=== PATIENT | male | born 1945 | race Caucasian/White ===

== ENCOUNTER → 2018-03-07 | Outpatient (CLI) | payer OTHER | END | disposition home or self-care (01) | LOC: RADUSWWP 09:57 | PROVIDERS: ATTEND Family Medicine | DX: M79.605 Pain in left leg (principal); M79.604 Pain in right leg | CPT/HCPCS: 93923 ==

== ENCOUNTER → 2018-03-15 | Outpatient (CLI) | payer OTHER ==
--- NOTE | 2018-03-15 18:39 | ECHOF ---
Referral Reason:R06.00 Dyspnea on exertion MEASUREMENTS -------- HEIGHT: 172.7 cm WEIGHT: 86.2 kg BP: IVSd: 1.2 cm (0.6 - 1.1) LVIDd: 4.4 cm (3.9 - 5.3) LVPWd: 1.2 cm (0.6 - 1.1) IVSs: 1.5 cm LVIDs: 3.1 cm LVPWs: 1.5 cm LAESV Index (A-L): 16.53 ml/m Ao Diam: 2.5 cm (2.0 - 3.7) AV Cusp: 1.9 cm (1.5 - 2.6) LA Diam: 2.2 cm (2.7 - 3.8) MV E Cecilio: 0.63 m/s MV DecT: 274 ms MV A Cecilio: 0.81 m/s MV E/A Ratio: 0.78 RAP: 5.00 mmHg RVSP: 8.09 mmHg FINDINGS -------- Sinus rhythm. This was a technically adequate study. The left ventricular size is normal. There is mild concentric left ventricular hypertrophy. Overa ll left ventricular systolic function is normal with, an EF between 55 - 60 %. The right ventricle is normal in size and function. Normal LA size by volume 22+/-6 ml/m2. The right atrium is normal in size. The aortic valve is trileaflet, and appears structurally normal. No aortic stenosis or regurgitation. The mitral valve is normal. There is trace to mild mitral regurgitation. Trace tricuspid regurgitation present. Right ventricular systolic pressure is normal at < 35 mmHg. The right ventricular systolic pressure, as measured by Doppler, is 8.09mmHg. The pulmonic valve was not well visualized. Echo free space may represent effusion or a pericardial fat pad. CONCLUSIONS -------- 1. Sinus rhythm. 2. This was a technically adequate study. 3. The left ventricular size is normal. 4. There is mild concentric left ventricular hypertrophy. 5. Overall left ventricular systolic function is normal with, an EF between 55 - 60 %. 6. Normal LA size by volume 22+/-6 ml/m2. 7. The aortic valve is trileaflet, and appears structurally normal. No aortic stenosis or regurgitati on. 8. There is trace to mild mitral regurgitation. 9. Trace tricuspid regurgitation present. 10. Right ventricular systolic pressure is normal at < 35 mmHg. 11. The pulmonic valve was not well visualized. 12. Echo free space may represent effusion or a pericardial fat pad. MEDICAL SUPPORT SPECIALIST: Emerson Cheema RDCS
== END | disposition home or self-care (01) ==
LOC: RADECHMAIN 12:23
DX: I34.0 Nonrheumatic mitral (valve) insufficiency (principal); I51.7 Cardiomegaly
CPT/HCPCS: 93306

== ENCOUNTER 2018-10-19 12:48 | Emergency (ER) | payer OTHER ==
[2018-10-19 13:03] VITALS: BP 117/70; PULSE 83; RESP 16; TEMP 97.9
[2018-10-19] MEDS ORDERED: CYCLOBENZAPRINE 10MG STARTER 3 TAB BTL PO STA (13:30)
--- NOTE | 2018-10-19 13:51 | XR ---
EXAMINATION TYPE: XR lumbar spine 2 or 3V DATE OF EXAM: 10/19/2018 CLINICAL HISTORY: pain TECHNIQUE: Three views of the lumbar spine are submitted. COMPARISON: None. FINDINGS: There are 5 lumbar type vertebral bodies identified. The lumbar spine shows satisfactory alignment w ithout evidence of acute fracture or dislocation. Vertebral body heights are within normal limits. [id number] degenerative disc space narrowing. The overlying soft tissue appears unremarkable. IMPRESSION: No acute fracture or dislocation is seen in the lumbar spine. ICD 10 NO FRACTURE, INITIAL EVALUATION
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
== END 2018-10-19 14:10 | disposition home or self-care (01) ==
LOC: EC 12:48
DX: S39.012A Strain of muscle, fascia and tendon of lower back, initial encounter (principal); Z87.891 Personal history of nicotine dependence; V89.2XXA Person injured in unspecified motor-vehicle accident, traffic, initial encounter; Y92.410 Unspecified street and highway as the place of occurrence of the external cause
CPT/HCPCS: 72100; 99284

== ENCOUNTER → 2018-11-21 | Outpatient (CLI) | payer OTHER ==
--- NOTE | 2018-11-21 10:30 | US ---
EXAMINATION TYPE: US liver DATE OF EXAM: 11/21/2018 COMPARISON: NONE CLINICAL HISTORY: R94.5 Abnormal LFTS. no symptoms EXAM MEASUREMENTS: Liver Length: 15.8 cm Gallbladder Wall: 0.2 cm CBD: 0.5 cm Right Kidney: 11.6 x 5.3 x 5.3 cm Pancreas: wnl Liver: Very minimal diminished visualization of the portal triads on few images. No focal hepatic ma ss is seen. Gallbladder: wnl Evidence for sonographic Tellez's sign: no CBD: wnl Right Kidney: wnl IMPRESSION: Very mild hyperechogenicity of the hepatic parenchyma can relate to early hepatic steatos is. Correlate with liver function test results.
== END | disposition home or self-care (01) ==
LOC: RADUSWWP 09:10
DX: R94.5 Abnormal results of liver function studies (principal)
CPT/HCPCS: 76705

== ENCOUNTER → 2018-11-22 | Outpatient (CLI) | payer OTHER ==
[~2018-11-22] MED LIST: REGADENOSON 0.4 MG/5 ML SYRINGE IV ONE
--- NOTE | 2018-11-22 11:57 | NM ---
EXAMINATION TYPE: NM stress lexiscan cardiolite DATE OF EXAM: 11/22/2018 COMPARISON: NONE HISTORY: Dyspnea. History of tobacco use quit 25 years ago along with hypertension and hypercholester emia. TECHNIQUE: After the intravenous administration of 9.8 mCi Tc 99m Sestamibi - Cardiolite resting SPE CT images acquired 35 minutes post injection. The patient received 0.4mg Lexiscan, 24.8 mCi Tc 99m Sestamibi - Stress images obtained [address] injection FINDINGS: Review of stress and rest SPECT images demonstrates no distinct perfusion abnormality. Gated analysi s shows normal wall motion with an estimated left ventricular ejection fraction of 67 %. IMPRESSION: No scintigraphic evidence for reversible ischemia.
--- NOTE | 2018-11-22 20:08 | P.STRESS ---
- Stress Test Note Stress Test Results/Findings: Exam Performed: NM stress lexiscan cardiolite Exam Date: 11/22/18 Reason for Exam: SOB / VERTIGO Height: 5 ft 8 in Weight: 87.09 kg Protocol: LEXISCAN Stage: NA Duration of Exercise: NA Resting Heart Rate: 80 Resting Blood Pressure: 123/64 Maximum Achieved Heart Rate: 88 Maximum Achieved Blood Pressure: 123/64 85% PMHR: NA 100% PMHR: NA METS: NA Technologist Comment: Stress Test Results/Findings: Baseline heart rate 80 beats a minute, Baseline blood pressure 123/64 mmHg Patient is 12-lead ECG at baseline shows sinus rhythm with normal cardiac and was normal ST segments He received Lexiscan infusion per protocol No significant change in heart rate. Mild drop in blood pressure Lowest blood pressure 93/63 mmHg No symptoms Nuclear portion of the stressors reported separately
== END | disposition home or self-care (01) ==
LOC: RADNMMAIN 07:38
DX: R06.00 Dyspnea, unspecified (principal); Z88.9 Allergy status to unspecified drugs, medicaments and biological substances
CPT/HCPCS: 93017; 78452; A9500; J2785

== ENCOUNTER 2020-06-12 16:59 | Observation (INO) | payer OTHER ==
[2020-06-12] MEDS ORDERED: DIAZEPAM 5 MG/ML 2 ML INJ IVP STA ×2 (17:10→20:02)
[2020-06-12] MEDS ORDERED: KETOROLAC 15 MG/ML 1 ML VIAL IVP STA (17:10)
[2020-06-12] MEDS ORDERED: SODIUM CHLORIDE 0.9% 500 ML 500 ML IV ONE (17:10)
--- NOTE | 2020-06-12 17:17 | ED ---
General Adult HPI - General Chief complaint: Back Pain/Injury Stated complaint: Back Spasm Time Seen by Provider: 06/12/20 17:00 Source: patient, EMS, RN notes reviewed, old records reviewed Mode of arrival: EMS Limitations: no limitations - History of Present Illness Initial comments: This is a 74-year-old male who presents emergency Department complaining of back spasm. Patient states he was out shoveling today and a couple hours later all of a sudden he started having back spasms across the lower back per patient states he sits still he has some pain but when he moves his is excruciating pain any states it feels like a spasm. Patient denies any numbness or weakness. Patient denies any problems urinating or having any urinary incontinence. Patient denies any abdominal pain. Patient denies any injury to the back. Patient denies any similar symptoms in the past. Patient denies any recent fever chills or cough. - Related Data Home Medications Medication Instructions Recorded Confirmed No Known Home Medications 10/19/18 10/19/18 Allergies Allergy/AdvReac Type Severity Reaction Status Date / Time No Known Allergies Allergy Verified 10/19/18 13:03 Review of Systems ROS Statement: Those systems with pertinent positive or pertinent negative responses have been documented in the HPI. ROS Other: All systems not noted in ROS Statement are negative. Past Medical History Past Medical History: Hypertension History of Any Multi-Drug Resistant Organisms: None Reported Past Surgical History: Hernia Repair Past Psychological History: PTSD Past Alcohol Use History: Occasional Past Drug Use History: None Reported General Exam - General Exam Comments Initial Comments: GENERAL: Patient is well-developed and well-nourished. Patient is nontoxic and well- hydrated and is in mild distress however when the patient moves he is in excruciating pain. ENT: Neck is soft and supple. No significant lymphadenopathy is noted. Oropharynx is clear. Moist mucous membranes. Neck has full range of motion without eliciting any pain. EYES: The sclera were anicteric and conjunctiva were pink and moist. Extraocular movements were intact and pupils were equal round and reactive to light. Eyelids were unremarkable. PULMONARY: Unlabored respirations. Good breath sounds bilaterally. No audible rales rhonchi or wheezing was noted. CARDIOVASCULAR: There is a regular rate and rhythm without any murmurs gallops or rubs. ABDOMEN: Soft and nontender with normal bowel sounds. SKIN: Skin is clear with no lesions or rashes and otherwise unremarkable. NEUROLOGIC: Patient is alert and oriented x3. Cranial nerves II through XII are grossly intact. Motor and sensory are also intact. Normal speech, volume and content. Symmetrical smile. Perineum exam is normal. MUSCULOSKELETAL: Normal extremities with adequate strength and full range of motion. Patient has tenderness in the paraspinous muscles of the lower back. Patient's straight leg test is causing spasms with either leg. LYMPHATICS: No significant lymphadenopathy is noted PSYCHIATRIC: Normal psychiatric evaluation. Limitations: no limitations Course Vital Signs 06/12/20 17:02 Temperature 98.0 F Pulse Rate 80 Respiratory 16 Rate Blood Pressure 154/70 O2 Sat by Pulse 96 Oximetry Medical Decision Making - Medical Decision Making Patient received Dilaudid and Valium and Toradol initially and had no effect. Anytime the patient tried to move he was unable to put his feet to the ground and get off the bed. Patient was unable to roll over. I gave the patient some Solu-Medrol and some more Valium he was slightly more relaxed but still unable to move in any direction. Patient was unable to lie flat so they can get an x-ray. [facility] admitted the patient wrote admitting orders. - Lab Data Result diagrams: 06/12/20 17:10 06/12/20 17:10 Lab Results 06/12/20 06/12/20 Range/Units 17:10 17:10 WBC 5.7 (3.8-10.6) k/uL RBC 4.48 (4.30-5.90) m/uL Hgb 14.7 (13.0-17.5) gm/dL Hct 41.8 (39.0-53.0) % MCV 93.4 (80.0-100.0) fL MCH 32.9 (25.0-35.0) pg MCHC 35.2 (31.0-37.0) g/dL RDW 13.0 (11.5-15.5) % Plt Count 263 (150-450) k/uL MPV 7.4 Neutrophils % 64 % Lymphocytes % 19 % Monocytes % 6 % Eosinophils % 7 % Basophils % 2 % Neutrophils # 3.7 (1.3-7.7) k/uL Lymphocytes # 1.1 (1.0-4.8) k/uL Monocytes # 0.3 (0-1.0) k/uL Eosinophils # 0.4 (0-0.7) k/uL Basophils # 0.1 (0-0.2) k/uL Sodium 138 (137-145) mmol/L Potassium 3.7 (3.5-5.1) mmol/L Chloride 106 (98-107) mmol/L Carbon Dioxide 24 (22-30) mmol/L Anion Gap 8 mmol/L BUN 23 H (9-20) mg/dL Creatinine 0.91 (0.66-1.25) mg/dL Est GFR (CKD-EPI)AfAm >90 (>60 ml/min/1.73 sqM) Est GFR (CKD-EPI)NonAf 84 (>60 ml/min/1.73 sqM) Glucose 125 H (74-99) mg/dL Calcium 9.9 (8.4-10.2) mg/dL Total Bilirubin 0.4 (0.2-1.3) mg/dL AST 48 (17-59) U/L ALT 71 H (4-49) U/L Alkaline Phosphatase 44 (38-126) U/L Total Protein 7.2 (6.3-8.2) g/dL Albumin 4.6 (3.5-5.0) g/dL Disposition Clinical Impression: Back muscle spasm Disposition: ADMITTED IP TO THIS HOSP Referrals: [facility],Clinic [Primary Care Provider] - 1-2 days Time of Disposition: 20:27
[2020-06-12 17:35] LABS: Basophils # (A) 0.1 k/uL (0-0.2); Basophils % (A) 2 %; Eosinophils # (A) 0.4 k/uL (0-0.7); Eosinophils % (A) 7 %; HCT 41.8 % (39.0-53.0); HGB 14.7 gm/dL (13.0-17.5); Lymphocytes # (A) 1.1 k/uL (1.0-4.8); Lymphocytes % (A) 19 %; MCH 32.9 pg (25.0-35.0); MCHC 35.2 g/dL (31.0-37.0); MCV 93.4 fL (80.0-100.0); Mean Platelet Volume 7.4; Monocytes # (A) 0.3 k/uL (0-1.0); Monocytes % (A) 6 %; Neutrophils # (A) 3.7 k/uL (1.3-7.7); Neutrophils % (A) 64 %; Platelet Count 263 k/uL (150-450); RBC 4.48 m/uL (4.30-5.90); WBC 5.7 k/uL (3.8-10.6)
[2020-06-12 17:46] LABS: Potassium 3.7 mmol/L (3.5-5.1)
[2020-06-12 17:47] LABS: ALT 71 U/L (4-49); AST 48 U/L (17-59); African American GFR (CKD) >90 (>60 ml/min/1.73 sqM); Albumin 4.6 g/dL (3.5-5.0); Alkaline Phosphatase 44 U/L (38-126); Anion Gap 8 mmol/L; Blood Urea Nitrogen 23 mg/dL (9-20); Calcium 9.9 mg/dL (8.4-10.2); Carbon Dioxide 24 mmol/L (22-30); Chloride 106 mmol/L (98-107); Glucose 125 mg/dL (74-99); Non-African American GFR(CKD) 84 (>60 ml/min/1.73 sqM); Sodium 138 mmol/L (137-145); Total Bilirubin 0.4 mg/dL (0.2-1.3); Total Protein 7.2 g/dL (6.3-8.2)
[2020-06-12] MEDS ORDERED: HYDROmorphone 0.5 MG/0.5 ML SYRINGE IVP STA (18:59)
[2020-06-12] MEDS ORDERED: methylPREDNISolone SOD SUCCI 125 MG/2 ML VIAL IV STA (20:02)
[2020-06-12] MEDS ORDERED: SODIUM CHLORIDE 0.9% 1,000 ML IV ONE (20:27)
[2020-06-12] MEDS ORDERED: diazePAM 5 MG TAB PO PRN (20:28)
[2020-06-12] MEDS ORDERED: HYDROmorphone 0.5 MG/0.5 ML SYRINGE IVP PRN (20:29)
[2020-06-13] MEDS ORDERED: ACETAMINOPHEN TAB 500 MG TAB PO PRN (00:21)
[2020-06-13] MEDS: KETOROLAC 15 MG/ML 1 ML VIAL IVP SCH ×4 (00:40→17:19)
[2020-06-13] MEDS ORDERED: buPROPion SR 100 MG TABLET.ER PO SCH (09:00)
[2020-06-13] MEDS ORDERED: amLODIPine 10 MG TAB PO SCH (09:00)
[2020-06-13] MEDS ORDERED: cilostazoL 100 MG TAB PO SCH (09:00)
[2020-06-13] MEDS ORDERED: LISINOPRIL-HCTZ 20-25 MG 1 EACH TAB PO SCH (09:00)
--- NOTE | 2020-06-13 12:18 | XR ---
EXAMINATION TYPE: XR lumbar spine 2 or 3V DATE OF EXAM: 06/13/2020 Comparison: 10/19/2018 Clinical History: 74-year-old male back pain Findings: Hypertrophic facet arthropathy mid to lower lumbar spine. Moderate degenerative disc disease L5-S1 an d mild throughout the remainder of the lumbar spine. Discogenic calcifications throughout the abdomin al aorta. 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 Vertebral body heights are preserve d and alignment is maintained. Findings are relatively similar compared to 2019. Impression: No vertebral compression collapse or malalignment. Moderate degenerative disc disease L5-S1 and mild elsewhere in the lumbar spine. Hypertrophic facet arthropathy mid to lower lumbar spine.
--- NOTE | 2020-06-13 13:41 | P.CNOR ---
History of Present Illness - [facility] Consult date: 06/13/20 Consult reason: low back pain History of present illness: 74-year-old male presents emergency department secondary to low back pain and spasms. The patient states a couple days ago he was shoveling the driveway when he started to feel a twinge in his back however it did not become worse in the last couple days when he was having extreme pain in his low back and pain when he tried to sit or stand. He states that he is having difficulty getting up secondary to this pain. He denies pain that travels down his leg however he states when he moves his left leg he can feel pain in his low back on the left. He denies any bowel or bladder incontinence. He denies any perineal numbness or tingling. He denies any fevers chills shortness of breath or chest pain at this time. He denies any overt injury trauma blunt head trauma or other issues. Review of Systems 14 points review of systems completed and as stated in HPI, all other systems reviewed are negative. Past Medical History Past Medical History: Hypertension History of Any Multi-Drug Resistant Organisms: None Reported Past Surgical History: Hernia Repair Past Psychological History: PTSD Smoking Status: Former smoker Past Alcohol Use History: Occasional Additional Past Alcohol Use History / Comment(s): drinks about 2 beers a day Past Drug Use History: None Reported Medications and Allergies Home Medications Medication Instructions Recorded Confirmed Type Acetaminophen [Tylenol] 1,000 mg PO ONCE PRN 06/12/20 06/12/20 History Cilostazol [Pletal] 100 mg PO DAILY 06/12/20 06/12/20 History Lisinopril-Hctz 20-25 mg 1 tab PO DAILY 06/12/20 06/12/20 History [Zestoretic 20-25] amLODIPine [Norvasc] 10 mg PO DAILY 06/12/20 06/12/20 History buPROPion SR [Wellbutrin SR] 100 mg PO BID 06/12/20 06/12/20 History Allergies Allergy/AdvReac Type Severity Reaction Status Date / Time No Known Allergies Allergy Verified 10/19/18 13:03 Physical Examination Osteopathic Statement: *. No significant issues noted on an osteopathic structural exam other than those noted in the History and Physical/Consult. General the patient is alert and oriented 3 appears well-nourished well- hydrated and is in no acute distress. He is not appear septic. Lumbar spine is examined on examination the lumbar spine the patient has minimal tenderness to palpation across the low back. He states that the pain that he has radiates across his low back and into his left buttock region. There is no piriformis tenderness bilaterally there is no trend David. There is no greater trochanteric pain at this time. The patient was able to experience planning strategist the room and walk around the room. He is able to toe walk as well as heel walk without any issues. The patient performed a half squat which when he got to the bottom did increase some pain but he was able to stand back up without any issues. The patient states he went to the bathroom without any issues as well. Patient has 2/4 DTRs in all upper and lower extremities. He has 5/5 strength in all major muscle groups of the upper extremity's and lower extremity's bilaterally. He has a negative Babinski's negative clonus and negative Slava's test bilaterally. The patient's intact to light touch sensation in the C5 T1 as well as L2 S1 nerve distribution. He has palpable 2/4 distal pulses in his lower extremities all. He does have a positive straight leg raise on the left but a negative contralateral straight leg raise on the right. This does cause tensioning in his left lower extremity which causes pain in his back. Rectals exam deferred at this time This does not she pain down his leg however it only concentrates in his back. He is intact. He anal in perirectal sensation with no perineal numbness or scrotal numbness. Results AP lateral radiographs of the lumbar spine are obtained and reviewed in the emergency department this demonstrates some spondylosis of L5-S1 however there are no fractures or dislocations. Overall alignment is fairly well maintained. There is no evidence of instability lesions or other issues. - Labs Labs: Abnormal Lab Results - Last 24 Hours (Table) 06/12/20 Range/Units 17:10 BUN 23 H (9-20) mg/dL Glucose 125 H (74-99) mg/dL ALT 71 H (4-49) U/L H & H 06/12/20 Range/Units 17:10 Hgb 14.7 (13.0-17.5) gm/dL Hct 41.8 (39.0-53.0) % Result Diagrams: 06/12/20 17:10 06/12/20 17:10 Assessment and Plan Assessment: 74-year-old male with low back pain and left lower extremity radiculopathy Plan: -Medical management -Recommend Flexeril 10 mg 3 times a day, Medrol Dosepak, anti-inflammatories or Tylenol 1000 mg every 6 hours for pain control -PT OT -Limit lifting bending and twisting to less than 10 pounds at this time. No pushing or pulling. -Recommend outpatient physical therapy for lumbar back pain -Follow-up in office in 1-2 weeks. If patient not doing any better and still having symptoms would order an MRI at this time. Thank you for allowing us to participate in the care of this patient. Please call us with any questions.
[2020-06-13] MEDS ORDERED: HEPARIN SODIUM,PORCINE 5,000 UNIT/ML 1 ML VIAL SQ SCH (16:00)
[2020-06-13 16:19] VITALS: BP 154/77; PULSE 91; RESP 18; TEMP 98.4
--- NOTE | 2020-06-13 21:40 | P.HPIM ---
History of Present Illness H&P Date: 06/13/20 Chief Complaint: Lower back spasms Patient is a 74-year-old male with a known history of hypertension, hernia repair and prior history of smoking does drink about 2 beers a day presents to ER with complaints of lower back spasms and pain. Patient states that he was out shoveling the snow and couple hours later he started having spasms in his back and lower back pain. Patient states that he is having excruciating pain in the lower back and also radiating to the both sides of the back and pressure- like tightness. Difficulty getting up from sitting position. Sometimes the pain travels down the left leg. No numbness or tingling sensation.. Denies any lower extremity weakness. No numbness or tingling. No saddle anesthesia. No bladder or bowel incontinence. Denies any abdominal pain. No diarrhea. Denied any recent injury to the back. No fever no chills. No cough or sputum production. X-ray of the lumbar spine done in the ER showed no vertebral compression or collapse or malalignment. Moderate degenerative disc disease L5-S1 and mild elsewhere in the lumbar spine. Hypertrophic facet arthropathy mid to lower lumbar spine. Laboratory data revealed AST 48 ALT 71 and alk phos 44 electrolytes within normal limits. No leukocytosis. Review of Systems Constitutional: Patient denies any fever or chills . No generalized weakness or weight loss. Abdomen: Patient denied nausea vomiting and diarrhea and abdominal pain. Cardiovascular: Patient denies any chest pain or short of breath no palpitations. Respiratory: patient denied any cough or sputum production. No shortness of breath Neurologic: Patient denied any numbness or tingling headache. Musculoskeletal: Patient denies any complaints of joint swelling or deformit y.Lower back spasms Skin: Negative Psychiatric: Negative Endocrine: No heat or cold intolerance. No recent weight gain. Genitourinary: No dysuria or hematuria. All other 14 point ROS negative except the above Past Medical History Past Medical History: Hypertension History of Any Multi-Drug Resistant Organisms: None Reported Past Surgical History: Hernia Repair Past Psychological History: PTSD Smoking Status: Former smoker Past Alcohol Use History: Occasional Additional Past Alcohol Use History / Comment(s): drinks about 2 beers a day Past Drug Use History: None Reported Medications and Allergies Home Medications Medication Instructions Recorded Confirmed Type Acetaminophen [Tylenol] 1,000 mg PO ONCE PRN 06/12/20 06/12/20 History Cilostazol [Pletal] 100 mg PO DAILY 06/12/20 06/12/20 History Lisinopril-Hctz 20-25 mg 1 tab PO DAILY 06/12/20 06/12/20 History [Zestoretic 20-25] amLODIPine [Norvasc] 10 mg PO DAILY 06/12/20 06/12/20 History buPROPion SR [Wellbutrin SR] 100 mg PO BID 06/12/20 06/12/20 History Cyclobenzaprine [Flexeril] 10 mg PO TID PRN 3 Days #12 tab 06/13/20 Rx methylPREDNISolone Dose Pack 4 mg PO DIRECTED #21 package 06/13/20 Rx [Medrol Dose Pack] Allergies Allergy/AdvReac Type Severity Reaction Status Date / Time No Known Allergies Allergy Verified 10/19/18 13:03 Physical Exam Vitals: Vital Signs Temp Pulse Pulse Resp BP BP Pulse Ox 06/13/20 08:00 98.2 F 77 17 146/83 93 L 06/13/20 02:00 97.8 F 75 18 115/57 95 06/12/20 21:48 97.8 F 69 18 130/69 94 L 06/12/20 17:02 98.0 F 80 16 154/70 96 Intake and Output 06/12/20 06/13/20 06/13/20 22:59 06:59 14:59 Intake Total 600 Balance 600 Intake: Oral 600 Other: Voiding Method Urinal # Voids 1 Weight 82.554 kg PHYSICAL EXAMINATION: Patient is lying in the bed comfortably, no acute distress, awake alert and oriented.. HEENT: Normocephalic. Neck is supple. Pupils reactive. Nostrils clear. Oral cavity is moist. Ears reveal no drainage. Neck reveals no JVD, carotid bruits, or thyromegaly. CHEST EXAMINATION: Trachea is central. Symmetrical expansion. Lung joseph clear to auscultation and percussion. CARDIAC: Normal S1, S2 with no gallops. No murmurs ABDOMEN: Soft. Bowel sounds normal. No organomegaly. No abdominal bruits. Extremities: reveal no edema. No clubbing or cyanosis Neurologically awake, alert, oriented x3 with well-coordinated movements. No focal deficits noted Skin: No rash or skin lesions. Psychiatric: Coperative. Nonsuicidal Musculoskeletal: No joint swelling or deformity. Lumbar paraspinal tightness and mild pain with deep palpation.. Results CBC & Chem 7: 06/12/20 17:10 06/12/20 17:10 Labs: Abnormal Lab Results - Last 24 Hours (Table) 06/12/20 Range/Units 17:10 BUN 23 H (9-20) mg/dL Glucose 125 H (74-99) mg/dL ALT 71 H (4-49) U/L Thrombosis Risk Factor Assmnt - DVT/VTE Prophylaxis DVT/VTE Prophylaxis: Pharmacologic Prophylaxis ordered Assessment and Plan Assessment: Intractable lower back pain and spasms and left lower extremity radiculopathy. Hypertension controlled Prior history of smoking DVT prophylaxis with early ambulation and heparin subcu Plan: Patient will be continued pain management with Tylenol and Flexeril was added. Patient will be started on Medrol Dosepak. Orthopedic surgery was consulted for evaluation. Continue the medications and patient will need outpatient physical therapy. Symptomatically improving.
== END 2020-06-13 18:00 | disposition home or self-care (01) ==
LOC: EC 16:59 → 4SSUR 20:29
PROVIDERS: ADMIT Hospitalist; ATTEND Hospitalist
DX: M62.830 Muscle spasm of back (principal); I10 Essential (primary) hypertension; Z98.890 Other specified postprocedural states; F43.10 Post-traumatic stress disorder, unspecified; Z87.891 Personal history of nicotine dependence; M47.27 Other spondylosis with radiculopathy, lumbosacral region; Z79.02 Long term (current) use of antithrombotics/antiplatelets; Z79.899 Other long term (current) drug therapy
CPT/HCPCS: 96376; 96361 ×3; 96374; 96375; 99285; 36415; 80053; 85025; 72100; G0378 ×2; J2930; J3360; S0106; J1885 ×2; J1170

== ENCOUNTER → 2021-07-25 | Outpatient (CLI) | payer OTHER ==
--- NOTE | 2021-07-25 14:36 | PE ---
Nuclear medicine PET/CT HISTORY: R 91.1, lung nodule, initial Patient received 13.6 mCi F-18 FDG intravenously in delayed scanning was performed from the skull bas e to the mid thighs. A localization and attenuation correction CT scan was performed. There are no comparisons available Chest and neck: There is no cervical or supraclavicular adenopathy. No mediastinal, axillary, or sheryl r adenopathy. Right upper lobe shows a mass which is irregular and shows spiculated margins, extensio n to the pleural surface. There is only mild uptake present. Paraseptal emphysematous changes are pre sent. There is no pleural or pericardial effusion. No endobronchial lesion. There are coronary artery calcifications present. There is a hiatal hernia. The ascending aorta is aneurysmal. Calcification p resent at the root of the aorta. ABDOMEN: There is no adrenal mass. No retroperitoneal adenopathy or liver mass. Liver shows low atten uation possibly due to hepatic steatosis. Pancreas and spleen are within normal limits. Kidneys are u nremarkable. Aorta shows atheromatous change. Extensive diverticular changes noted within the sigmoid colon. Suspe ct a left inguinal hernia may be present. The prostate is enlarged. Urinary bladder shows a thickened wall possibly due to chronic outlet obstruction. The appendix is normal. Osseous structures show no suspicious uptake. Degenerative disc change and possibly spondylolysis pre sent at L5. IMPRESSION: Suspicious right upper lobe lung nodule, consider pulmonary consult. Aortic aneurysm and coronary artery disease. Additional findings above.
== END | disposition home or self-care (01) ==
LOC: RADPETMAIN 08:07
PROVIDERS: ATTEND Physician Assistant Medical
DX: R91.1 Solitary pulmonary nodule (principal); I25.10 Atherosclerotic heart disease of native coronary artery without angina pectoris; I71.2 Thoracic aortic aneurysm, without rupture; J43.8 Other emphysema
CPT/HCPCS: 78815; A9552

== ENCOUNTER 2021-12-26 01:10 | Inpatient (IN) | payer OTHER, MEDICARE ==
--- NOTE | 2021-12-26 01:51 | ED ---
Chest Pain HPI - General Chief Complaint: Chest Pain Stated Complaint: Chest Pain Time Seen by Provider: 12/26/21 01:33 Source: patient, family Mode of arrival: ambulatory Limitations: no limitations - History of Present Illness Initial Comments: This patient is 76-year-old man who presents to be evaluated for chest pain. He indicates that it is across the upper chest. It feels like a pressure or heaviness. The pains are intermittent. They've been going on for a few days and he states he was seen about them at the [facility]. He spent 5 hours there today being evaluated. He states he had EKG, x-ray, computed tomography scan. He states also that he was evaluated by the cardiothoracic team as he did have a lung resection approximately a month ago there at the [facility]. He states he was told that they could not find the cause of his pain and he was discharged. He states that the pain recurred tonight and prompted him to be evaluated here the pain resolved on the ride here. He denies any associated symptoms. MD Complaint: chest pain -: days(s) Onset: during rest Pain Location: left chest, right chest Pain Radiation: none Severity: moderate Quality: heaviness Consistency: intermittent Improves With: nothing Worsens With: nothing Treatments Prior to Arrival: none - Related Data Home Medications Medication Instructions Recorded Confirmed Acetaminophen [Tylenol] 1,000 mg PO ONCE PRN 06/12/20 06/12/20 Lisinopril-Hctz 20-25 mg 1 tab PO DAILY 06/12/20 06/12/20 [Zestoretic 20-25] amLODIPine [Norvasc] 10 mg PO DAILY 06/12/20 06/12/20 buPROPion SR [Wellbutrin SR] 100 mg PO BID 06/12/20 06/12/20 cilostazoL [Pletal] 100 mg PO DAILY 06/12/20 06/12/20 Previous Rx's Medication Instructions Recorded Cyclobenzaprine [Flexeril] 10 mg PO TID PRN 3 Days #12 tab 06/13/20 methylPREDNISolone Dose Pack 4 mg PO DIRECTED #21 package 06/13/20 [Medrol Dose Pack] Allergies Allergy/AdvReac Type Severity Reaction Status Date / Time No Known Allergies Allergy Verified 12/26/21 01:17 Review of Systems ROS Statement: Those systems with pertinent positive or pertinent negative responses have been documented in the HPI. ROS Other: All systems not noted in ROS Statement are negative. Constitutional: Denies: fever, chills Respiratory: Denies: cough, dyspnea Cardiovascular: Reports: chest pain. Denies: palpitations, orthopnea, edema, syncope Gastrointestinal: Denies: abdominal pain, nausea, vomiting, diarrhea Genitourinary: Denies: dysuria, hematuria Musculoskeletal: Denies: back pain Skin: Denies: rash Neurological: Denies: headache, weakness, numbness EKG Findings - EKG Results: EKG: interpreted by ERMD, sinus rhythm (Rate 78 bpm), normal axis - Blocks, Duncan, Hypertrophy, ST Abn: Repolarization changes or abnormalities: ST or T wave suggestive of ischemia (Lateral T inversions.) Past Medical History Past Medical History: Hypertension Additional Past Medical History / Comment(s): Lung CA right upper lung History of Any Multi-Drug Resistant Organisms: None Reported Past Surgical History: Hernia Repair Additional Past Surgical History / Comment(s): carotid left Past Psychological History: PTSD Smoking Status: Former smoker Past Alcohol Use History: Occasional Past Drug Use History: None Reported General Exam Limitations: no limitations General appearance: alert, in no apparent distress Head exam: Present: atraumatic, normocephalic Eye exam: Present: normal appearance. Absent: scleral icterus, conjunctival injection Respiratory exam: Present: normal lung sounds bilaterally. Absent: respiratory distress, wheezes, rales, rhonchi, stridor Cardiovascular Exam: Present: regular rate, normal rhythm, normal heart sounds. Absent: systolic murmur, diastolic murmur, rubs, gallop GI/Abdominal exam: Present: soft. Absent: distended, tenderness, guarding, rebound, rigid, mass Extremities exam: Present: normal inspection, normal capillary refill. Absent: pedal edema, calf tenderness Back exam: Present: normal inspection. Absent: CVA tenderness (R), CVA tenderness (L) Neurological exam: Present: alert Skin exam: Present: warm, dry, intact, normal color. Absent: rash Course Vital Signs 12/26/21 12/26/21 12/26/21 01:12 01:17 01:36 Temperature 97.8 F Pulse Rate 78 72 Pulse Rate [ 79 [employer] ] Respiratory 22 16 Rate Blood Pressure 117/85 133/70 O2 Sat by Pulse 96 98 Oximetry 12/26/21 04:44 Temperature Pulse Rate 68 Pulse Rate [ [employer] ] Respiratory 16 Rate Blood Pressure 133/100 O2 Sat by Pulse 97 Oximetry Disposition Clinical Impression: Chest pain, Elevated troponin I level Disposition: ADMITTED IP TO THIS HOSP Condition: Good Is patient prescribed a controlled substance at d/c from ED?: No
[2021-12-26 02:27] LABS: Basophils # (A) 0.1 k/uL (0-0.2); Basophils % (A) 1 %; Eosinophils # (A) 0.3 k/uL (0-0.7); Eosinophils % (A) 5 %; HCT 41.8 % (39.0-53.0); Lymphocytes % (A) 16 %; MCH 31.1 pg (25.0-35.0); MCHC 33.4 g/dL (31.0-37.0); MCV 93.1 fL (80.0-100.0); Mean Platelet Volume 7.6; Monocytes # (A) 0.3 k/uL (0-1.0); Monocytes % (A) 5 %; Neutrophils # (A) 4.5 k/uL (1.3-7.7); Neutrophils % (A) 71 %; Platelet Count 270 k/uL (150-450); RBC 4.49 m/uL (4.30-5.90); RDW 14.1 % (11.5-15.5); WBC 6.4 k/uL (3.8-10.6)
[2021-12-26 02:35] LABS: INR 0.9 (<1.2); Partial Thromboplastin Time 23.1 sec (22.0-30.0); Prothrombin Time 10.1 sec (9.0-12.0)
--- NOTE | 2021-12-26 02:54 | XR ---
EXAMINATION TYPE: XR chest 2V DATE OF EXAM: 12/26/2021 Chest x-ray 2 views. History chest pain. Comparison none. FINDINGS: There is blunting right costophrenic angle. There is some elevation of the right diaphragm. Pleural t hickening right lung apex. Left lung is clear. Heart is shifted slightly to the right side. There are chest leads. IMPRESSION: Posttreatment changes in the right upper lobe with pleural thickening and volume loss. Pleural thicke jose is new compared to CT scan of 07/25/2021. There is small right pleural effusion and pleural diaph ragmatic reaction which is new compared to old exam. No heart failure.
[2021-12-26 02:59] LABS: Albumin 4.1 g/dL (3.5-5.0); Calcium 8.9 mg/dL (8.4-10.2); Magnesium 1.9 mg/dL (1.6-2.3); Potassium 3.6 mmol/L (3.5-5.1); Total Bilirubin 0.4 mg/dL (0.2-1.3); Total Protein 6.7 g/dL (6.3-8.2)
[2021-12-26] MEDS ORDERED: HEPARIN SODIUM 1,000 UN/ML (10ML VL) IV ONE (04:00)
[2021-12-26] MEDS ORDERED: HEPARIN SOD,PORK IN 0.45% NACL 25,000 UNIT in 0.45% NACL 1 250ML.BAG IV SCH (04:00)
[2021-12-26] MEDS ORDERED: NITROGLYCERIN SL TABS 0.4 MG TAB SUBLINGUAL PRN ×2 (04:00→08:35)
[2021-12-26] MEDS ORDERED: HEPARIN SODIUM,PORCINE 10,000 UNIT in SODIUM CHLORIDE 0.9% 1,000 ML IRRIGATION PRN (07:00)
[2021-12-26] MEDS ORDERED: HEPARIN SODIUM,PORCINE 2,500 UNIT in SODIUM CHLORIDE 0.9% 250 ML IRRIGATION PRN (07:00)
--- NOTE | 2021-12-26 08:07 | P.HPIM ---
History of Present Illness This is a pleasant 76 years old male with past medical history of right lung cancer and hypertension, chronic back pain. Patient was recently diagnosed with right upper lung cancer, he underwent surgical resection of his cancer about one month ago as he states. He follows with oncologist doctor Simpson in [place]. Patient states he did not need radiotherapy or chemotherapy and he supposed to follow up with his oncologist in 3 months Presents to the hospital with chest pain, For 3 days, on and off. It was 8-9/10 on admission, Chest pain is central, felt like sharp across the front chest. No dizziness or palpitation or dyspnea. No coughing. Patient currently chest pain-free and he rated as 0/10. Other GI or urinary symptoms. No vomiting or diarrhea. No dysuria or urgency. No headache or dizziness. No numbness or weakness. No leg pain or swelling. He quit smoking about 15 years ago. Occasional drinker of alcohol. No illicit strokes Vital signs stable and patient is afebrile. Labs including CBC, INR, BMP and liver enzymes not elevated. Troponin is elevated 0.09 EKG showing normal sinus rhythm at 78 with T-wave inversion on the lateral blades Chest x-ray: Post treatment changes in the right upper lobe with pleural thickening and volume loss, pleural thickening is new compared to computed tomography scan of 07/25/2021. There is a small right pleural effusion and pleural diaphragmatic reaction which is new compared to old exam. No heart failure In the emergency room patient was started on aspirin 325 mg and heparin drip Review of Systems CONSTITUTIONAL: No fever, no malaise, no fatigue. HEENT: No recent visual problems or hearing problems. Denied any sore throat. CARDIOVASCULAR: No orthopnea, PND, no palpitations, no syncope. PULMONARY: No shortness of breath, no cough, no hemoptysis. GASTROINTESTINAL: No diarrhea, no nausea, no vomiting, no abdominal pain. Normoactive bowel sounds. NEUROLOGICAL: No headaches, no weakness, no numbness. HEMATOLOGICAL: Denies any bleeding or petechiae. GENITOURINARY: Denies any burning micturition, frequency, or urgency. MUSCULOSKELETAL/RHEUMATOLOGICAL: Denies any joint pain, swelling, or any muscle pain. ENDOCRINE: Denies any polyuria or polydipsia. Past Medical History Past Medical History: Hypertension Additional Past Medical History / Comment(s): Lung CA right upper lung History of Any Multi-Drug Resistant Organisms: None Reported Past Surgical History: Hernia Repair Additional Past Surgical History / Comment(s): carotid left Past Psychological History: PTSD Smoking Status: Former smoker Past Alcohol Use History: Occasional Past Drug Use History: None Reported Medications and Allergies Home Medications Medication Instructions Recorded Confirmed Type Acetaminophen [Tylenol] 1,000 mg PO ONCE PRN 06/12/20 06/12/20 History Lisinopril-Hctz 20-25 mg 1 tab PO DAILY 06/12/20 06/12/20 History [Zestoretic 20-25] amLODIPine [Norvasc] 10 mg PO DAILY 06/12/20 06/12/20 History buPROPion SR [Wellbutrin SR] 100 mg PO BID 06/12/20 06/12/20 History cilostazoL [Pletal] 100 mg PO DAILY 06/12/20 06/12/20 History Cyclobenzaprine [Flexeril] 10 mg PO TID PRN 3 Days #12 tab 06/13/20 Rx methylPREDNISolone Dose Pack 4 mg PO DIRECTED #21 package 06/13/20 Rx [Medrol Dose Pack] Allergies Allergy/AdvReac Type Severity Reaction Status Date / Time No Known Allergies Allergy Verified 12/26/21 01:17 Physical Exam Vitals: Vital Signs Temp Pulse Pulse Resp BP Pulse Ox 12/26/21 04:44 68 16 133/100 97 12/26/21 01:36 79 12/26/21 01:17 72 16 133/70 98 12/26/21 01:12 97.8 F 78 22 117/85 96 Intake and Output 12/25/21 12/25/21 12/26/21 14:59 22:59 06:59 Other: Weight 82.554 kg GENERAL: The patient is alert and oriented x3, not in any acute distress. Well developed, well nourished. HEENT: Pupils are round and equally reacting to light. EOMI. No scleral icterus. No conjunctival pallor. Normocephalic, atraumatic. No pharyngeal erythema. No thyromegaly. CARDIOVASCULAR: S1 and S2 present. No murmurs, rubs, or gallops. PULMONARY: Chest is clear to auscultation, no wheezing or crackles. ABDOMEN: Soft, nontender, nondistended, normoactive bowel sounds. No palpable organomegaly. MUSCULOSKELETAL: No joint swelling or deformity. EXTREMITIES: No cyanosis, clubbing, or pedal edema. NEUROLOGICAL: Gross neurological examination did not reveal any focal deficits. SKIN: No rashes. No petechiae Results CBC & Chem 7: 12/26/21 01:57 12/26/21 01:57 Labs: Abnormal Lab Results - Last 24 Hours (Table) 12/26/21 12/26/21 Range/Units 01:57 01:57 Sodium 135 L (137-145) mmol/L Glucose 108 H (74-99) mg/dL Troponin I 0.094 H* (0.000-0.034) ng/mL Assessment and Plan Assessment: Chest pain, rule out cardiac causes with elevated troponin suspicious for non- STEMI Recent history of right upper lung cancer status post surgical resection. Patient follow up with oncologist as an outpatient Hypertension History of right lung cancer History of chronic back pain Plan: This is a pleasant 76 years old male who presents with chest pain We'll do serial troponins Continue with aspirin, continue with heparin Cardiology consult Labs and medication were reviewed.. Continue same treatment. Continue with symptomatic treatment. Resume home medication. Monitor lytes and vitals. DVT and GI prophylaxis. Further recommendations depends on the clinical course of t he patient DVT prophylaxis: heparin GI Prophylaxis: Pepcid Prognosis is guarded
[2021-12-26] MEDS ORDERED: ASPIRIN 325 MG TAB PO STA (08:35)
[2021-12-26] MEDS ORDERED: ATORVASTATIN 80 MG TAB PO STA (08:35)
[2021-12-26] MEDS ORDERED: ALPRAZolam 0.5 MG TAB PO PRN (08:35)
[2021-12-26] MEDS ORDERED: ALPRAZolam 0.25 MG TAB PO PRN (08:35)
[2021-12-26] MEDS ORDERED: amLODIPine 10 MG TAB PO SCH (09:00)
[2021-12-26] MEDS ORDERED: VERAPAMIL 2.5 MG/ML 2 ML AMP ONE ×2 (09:01→10:25)
--- NOTE | 2021-12-26 09:01 | P.EN ---
I discussed the case with Augustin from [facility] hospitalist team, patient is going to be switched to their service from now on
[2021-12-26] MEDS ORDERED: POTASSIUM CHLORIDE ER 20 MEQ TAB.ER PO STA (09:04)
[2021-12-26] MEDS ORDERED: NITROGLYCERIN OINT 1 INCH/GM PACKET TOPICAL STA (09:09)
[2021-12-26] MEDS ORDERED: METOPROLOL SUCCINATE (ER) 25 MG TAB.ER.24H PO SCH ×2 (09:15→21:00)
[2021-12-26] MEDS: buPROPion SR 100 MG TABLET.ER PO SCH ×2 (09:20→20:50)
[2021-12-26] MEDS: LISINOPRIL-HCTZ 20-25 MG 1 EACH TAB PO SCH (09:20)
[2021-12-26] MEDS: cilostazoL 100 MG TAB PO SCH (09:20)
--- NOTE | 2021-12-26 12:13 | CA ---
Transthoracic Echo Report Name: Don Frey Age: 76 Gender: M : 1945 Exam Date: 12/26/2021 10:07 Exam Location: [facility] Ht (in): 68 Wt (lb): 182 Ordering Physician: Jake Juan Attending/Referring Phys: Wirer Maintenance Nevin Verdugo RDCS Procedure CPT: Indications: Evaluate structure and function of heart Cardiac Hx: No cardiac hx Technical Quality: Good Contrast 1: Total Dose (mL): Contrast 2: Total Dose (mL): MEASUREMENTS (Male / Female) Normal Values 2D ECHO LV Diastolic Diameter PLAX 4.4 cm 4.2 - 5.9 / 3.9 - 5.3 cm LV Systolic Diameter PLAX 2.9 cm IVS Diastolic Thickness 0.9 cm 0.6 - 1.0 / 0.6 - 0.9 cm LVPW Diastolic Thickness 1.1 cm 0.6 - 1.0 / 0.6 - 0.9 cm LV Relative Wall Thickness 0.5 LA Volume 26.8 cm??? 18 - 58 / 22 - 52 cm??? M-MODE Aortic Root Diameter MM 3.1 cm LA Systolic Diameter MM 4.1 cm LA Ao Ratio MM 1.3 MV E Point Septal Separation 4.3 cm AV Cusp Separation MM 1.6 cm DOPPLER AV Peak Velocity 163.8 cm/s AV Peak Gradient 10.7 mmHg MV Area PHT 4.0 cm??? MR Peak Velocity 143.1 cm/s MR Peak Gradient 8.2 mmHg Mitral E Point Velocity 51.0 cm/s Mitral A Point Velocity 67.9 cm/s Mitral E to A Ratio 0.8 MV Deceleration Time 191.5 ms MV E' Velocity 4.3 cm/s Mitral E to MV E' Ratio 11.9 TR Peak Velocity 131.3 cm/s TR Peak Gradient 6.9 mmHg Right Ventricular Systolic Press 11.7 mmHg FINDINGS Left Ventricle Left ventricular ejection fraction is estimated at 35-40 %. apical anterior , apical inferior, anteroseptal, mid and apical septal hypokinesis.left ventricular cavity size normal. Left ventricular wall thickness normal. Right Ventricle The right ventricle is normal in size and function. Right Atrium The right atrium is normal in size. Left Atrium The left atrium is normal in size. Mitral Valve Structurally normal mitral valve without significant stenosis or prolapse. There is mild mitral regurgitation. Aortic Valve Structurally normal aortic valve without significant sclerosis or stenosis. There is no aortic regurgitation. Tricuspid Valve Structurally normal tricuspid valve without significant stenosis. Pulmonary artery systolic pressure is normal. Trace tricuspid regurgitation. Pulmonic Valve Structurally normal pulmonic valve without significant stenosis. There is no pulmonic regurgitation. Pericardium Normal pericardium without effusion. Aorta Normal aortic root dimension. CONCLUSIONS 1. Moderately to severely impaired systolic function with segmental wall motion abnormality consistent with CAD 2. Mild mitral and tricuspid regurgitation 3. No pericardial effusion Previewed by: Dr. Seven Fam MD (Electronically Signed) Final Date: 26 December 2021 12:12
[2021-12-26] MEDS ORDERED: HEPARIN SODIUM 1,000 UN/ML (10ML VL) ONE (12:25)
[2021-12-26] MEDS ORDERED: MIDAZOLAM 2 MG/2 ML VIAL IV ONE (12:36)
[2021-12-26] MEDS ORDERED: SODIUM CHLORIDE 0.9% 1,000 ML IV ONE (12:38)
[2021-12-26] MEDS ORDERED: VERAPAMIL SYRINGE (5 MG/10 ML) INTRAARTER ONE (12:40)
[2021-12-26] MEDS ORDERED: LIDOCAINE 1% INJ 10MG/ML (5 ML VIAL-PF) SQ ONE (12:40)
[2021-12-26] MEDS ORDERED: ASPIRIN 325 MG TAB ONE (12:40)
[2021-12-26] MEDS ORDERED: ASPIRIN 325 MG TAB PO ONE (12:42)
[2021-12-26] MEDS: HEPARIN SODIUM 1,000 UN/ML (10ML VL) IV ONE ×2 (12:48→12:53)
[2021-12-26] MEDS ORDERED: CLOPIDOGREL 75 MG TAB ONE (12:59)
[2021-12-26] MEDS ORDERED: IOPAMIDOL-370 100ML BTL INJ ONE ×2 (13:03→13:21)
[2021-12-26] MEDS ORDERED: CLOPIDOGREL 75 MG TAB PO ONE (13:03)
[2021-12-26] MEDS ORDERED: NITROGLYCERIN 1000MCG/10ML SYRINGE INTRAARTER ONE (13:07)
[2021-12-26] MEDS ORDERED: MAG HYDROX/AL HYDROX/SIMETH 30 ML CUP PO PRN (13:18)
[2021-12-26] MEDS ORDERED: RX INFO: IV CONTRAST WAS GIVEN 1 EACH MISC MISCELLANE PRN (13:18)
[2021-12-26] MEDS ORDERED: ATROPINE SULFATE 0.1 MG/ML 10ML SYRINGE IV PRN (13:18)
[2021-12-26] MEDS ORDERED: ZOLPIDEM 5 MG TAB PO PRN (13:18)
[2021-12-26] MEDS ORDERED: MAG HYDROX/AL HYDROX/SIMETH 30 ML CUP ONE (13:28)
[2021-12-26] MEDS: SODIUM CHLORIDE 0.9% 1,000 ML in EMPTY BAG 1 BAG IV SCH (14:54)
[2021-12-26 15:17] VITALS: BMI 27.6
--- NOTE | 2021-12-26 16:11 | P.HPIM ---
History of Present Illness H&P Date: 12/26/21 History of Presenting Illness: Patient is a very pleasant 76-year-old male with a past medical history of hypertension and lung cancer right upper lobe status post lung resection one month ago at [facility]. He presented to the emergency department with a chief complaint of chest pain. Patient describes this pain as a heaviness/pressure like sensation spanning across his upper chest. Patient stated this pain began a few days ago and he was even evaluated at the [facility] where he underwent a full workup and was later discharged home. Patient states this previously felt heaviness across his chest returned to the came to the emergency department for evaluation. He denies experiencing any associating symptoms including headache, lightheadedness, dizziness, chest pain, palpitations, shortness of breath, abdominal pain, nausea, vomiting or experiencing any numbness/tingling/weakness in his extremities. In the emergency department, patient underwent a full evaluation. EKG showing sinus rhythm at 78 bpm with T-wave inversion in leads I, aVL and V2, V3, V4, V5, and V6 with ST depression in leads II and aVF. Troponin elevated at 0.094. CBC, coags, and CMP otherwise unremarkable. Chest x-ray revealing posttreatment changes in the right upper lobe with pleural thickening and volume loss, negative for overt heart failure. Patient admitted under our services with consultation to cardiology who plans on taking patient to cardiac Project Scientist. Review of systems: Pertinent positives and negatives as discussed in HPI, a complete review of systems was performed and all other systems are negative. Physical exam: Vital signs reviewed and stable. General: Nontoxic, no distress and appears stated age. Derm: Skin warm and dry, normal coloration for ethnicity. Head: Atraumatic, normocephalic and symmetric. Eyes: EOMs intact, no lid lag, and anicteric sclera Mouth: no lip lesions, mucus membranes moist Cardiovascular: regular rate and rhythm with normal S1S2, no murmur, positive posterior tibial pulses bilaterally, and cap refill < 2 seconds. Lungs: Respirations even, regular, and unlabored on room air. Lungs CTA nisha aterally, no rhonchi, no rales, no wheezing, and no accessory muscle usage. Abdominal: soft, nontender to palpation, no guarding, no appreciable organomegaly Ext: ROM intact. No gross muscle atrophy, no edema, no contractures Neuro: Speech clear, face symmetrical and CN II-XII grossly intact with no noted focal neuro deficits Psych: Alert and oriented to person, place, time, and situation. Appropriate and pleasant affect. Assessment and Plan of Care: NSTEMI -Cardiology following, plans to take patient for cardiac cath later this morning -Telemetry monitoring -Trend troponins -Continue Heparin infusion -Cardiac diet, NPO at midnight -Lipid profile with a.m. labs. -Echocardiogram Hypertension -Monitor vital signs and continue daily medication regimen with lisinopril/hydrochlorothiazide. Lung cancer status post right upper lobe lung resection -Continue to follow up outpatient with oncologist at [facility] as scheduled. The patient is admitted with an anticipated greater than 2 midnight stay for evaluation of elevated troponin CODE STATUS: Full code DVT prophylaxis: Heparin Discussed with: Patient and RN Anticipated discharge date: Clinical course to determine Anticipated discharge place: Home A total of 43 minutes was spent on the care of this complex patient more than 50% of the time was spent in counseling and care coordination. I reviewed the documentation as provided by the UZMA above, who is the original author of this note. I agree with the documented assessment and plan, with the following changes: none Past Medical History Past Medical History: Hypertension Additional Past Medical History / Comment(s): Lung CA right upper lung History of Any Multi-Drug Resistant Organisms: None Reported Past Surgical History: Hernia Repair Additional Past Surgical History / Comment(s): carotid left Past Psychological History: PTSD Smoking Status: Former smoker Past Alcohol Use History: Occasional Past Drug Use History: None Reported - Past Family History Father Family Medical History: No Reported History Additional Family Medical History / Comment(s): Father was healthy Mother Family Medical History: No Reported History Additional Family Medical History / Comment(s): Mother was healthy Medications and Allergies Home Medications Medication Instructions Recorded Confirmed Type Acetaminophen [Tylenol] 1,000 mg PO Q6H PRN 06/12/20 12/26/21 History Lisinopril-Hctz 20-25 mg 1 tab PO DAILY 06/12/20 12/26/21 History [Zestoretic 20-25] amLODIPine [Norvasc] 10 mg PO DAILY 06/12/20 12/26/21 History cilostazoL [Pletal] 100 mg PO BID 06/12/20 12/26/21 History Aspirin EC [Ecotrin Low Dose] 81 mg PO DAILY 12/26/21 12/26/21 History Sildenafil Citrate 50 mg PO DIRECTED PRN 12/26/21 12/26/21 History buPROPion HCL [Wellbutrin SR] 150 mg PO BID 12/26/21 12/26/21 History Allergies Allergy/AdvReac Type Severity Reaction Status Date / Time No Known Allergies Allergy Verified 12/26/21 08:22 Physical Exam Vitals: Vital Signs Temp Pulse Pulse Resp BP Pulse Ox 12/26/21 06:30 70 16 135/70 100 12/26/21 04:44 68 16 133/100 97 12/26/21 01:36 79 12/26/21 01:17 72 16 133/70 98 12/26/21 01:12 97.8 F 78 22 117/85 96 Intake and Output 12/25/21 12/26/21 12/26/21 22:59 06:59 14:59 Other: Weight 82.554 kg Results CBC & Chem 7: 12/26/21 01:57 12/26/21 01:57 Labs: Abnormal Lab Results - Last 24 Hours (Table) 12/26/21 12/26/21 Range/Units 01:57 01:57 Sodium 135 L (137-145) mmol/L Glucose 108 H (74-99) mg/dL Troponin I 0.094 H* (0.000-0.034) ng/mL
--- NOTE | 2021-12-26 19:01 | CONS ---
CONSULTATION Don Frey is a 76-year-old gentleman who has most of his health care at the [facility]. He has a history of hypertension, mild depression, left carotid endarterectomy two months ago, and also had lung cancer and had a right upper lobe resection via laparoscopic surgery at [facility] in [place]. He went to the [facility] yesterday with chest pain. They did a workup mainly to look for causes related to his recent surgery and then discharged him and he was not pleased. He comes in complaining of chest discomfort since 4 days on and off wth progressive increase. He is having pressure on and off in the chest in a random fashion with activity. He also had some palpitations but no syncope. His second troponin went up and the clinical picture is that of zbf-RA-ukpolpbhy [place] with precordial ST-segment abnormality of a nonspecific type with QS pattern. This gentleman in 2019 had a stress test with Lexiscan which was negative and echo revealed preserved systolic function. Since then he has not had any stress testing. He is resting comfortably at the time of my evaluation. PAST MEDICAL HISTORY: 1. Lung cancer, status post robotic right upper lobe resection. 2. History of carotid disease, status post left carotid endarterectomy. 3. Hypertension. 4. Hyperlipidemia. 5. History of mild depression. ALLERGIES: NONE. The patient is a smoker, but he quit about 15 years ago. He does have underlying COPD. MEDICATIONS: Medications at home include lisinopril, hydrochlorothiazide, amlodipine, Wellbutrin, Pletal. PHYSICAL EXAMINATION: On examination, blood pressure is 130/70, pulse rate is 70 per minute, regular. HEENT unremarkable. Fundus was not examined by me. Neck is supple. No JVD. I do not hear a carotid bruit. There is no thyromegaly. Heart exam reveals S1, S2 with a short systolic murmur in the left sternal border. Lungs reveal diminished air entry. Abdomen is soft, nontender. Lower extremities reveal diminished pulses. Central nervous system grossly within normal limits. EKG revealed sinus mechanism with an ST-T abnormality in precordial leads, raising the possibility of fpc-OL-hvgrlsxie [place] and T-wave inversion. LABORATORY DATA: The second troponin is up to 0.3 and repeat one is 0.39. Renal function is normal. IMPRESSION: 1. Acute ihm-KA-wczjzgetr myocardial infarction. 2. Hypertension. 3. Depression. 4. Status post left carotid endarterectomy. 5. History of right upper lobe resection for carcinoma. RECOMMENDATIONS: I am recommending that we continue heparin. I will add beta murphy, metoprolol tartrate and nitro paste. He is on aspirin, heparin. I will add atorvastatin 80 mg daily and we will proceed with cardiac catheterization and based on findings intervention. The rationale, risks, benefits and options were explained to the patient. He understands all details and wishes to proceed with the procedure. MMODL / IJN: [id number] / MTDD
--- NOTE | 2021-12-26 20:19 | CC ---
CARDIAC CATHETERIZATION REPORT DATE OF SERVICE: 12/26/2021. PROCEDURE: 1. Left heart catheterization and coronary angiography. 2. Percutaneous transluminal coronary angioplasty and stenting of proximal left anterior descending coronary artery with a drug-eluting stent. PERFORMED BY: Dr. Matt Vaughn. Moderate conscious sedation time was 38 minutes. Patient was administered Versed. Oxygen saturation, hemodynamics and EKG were monitored closely. CLINICAL INFORMATION: Mr. Don Frey is a 76-year-old gentleman who gets most of his health care at the [facility]. He has hypertension, hyperlipidemia, and about two months ago had left carotid endarterectomy and also a month ago had resection of a tumor from the right upper lobe by a laparoscopic procedure. He has been having symptoms of chest pain for nearly 4 to 5 days, but came into the hospital today and he had precordial Q-waves with ST-T abnormality. Troponin was elevated. He was advised cardiac cath after due discussion. Risks, benefits, options and rationale were explained. PROCEDURE NOTE: Under local anesthesia and strict and strict aseptic precautions, a 6-Azerbaijani introducer was placed in the right radial artery. I used JL3.5 and JR4 catheters and performed coronary angiography, and the same right catheter was used to check LV pressure, but LV gram was not performed. Following this, I noted that the proximal LAD had a very tight 95% lesion and performed PCI of this vessel in the same setting. RCA also had a lesion, but this will be staged. The patient tolerated procedure well without complication. The sheath was taken out and TR band applied as per protocol and saturation in the fingers of the right hand was 94%. CARDIAC CATHETERIZATION FINDINGS: The left ventricular end-diastolic pressure was about 15 mmHg without any gradient across aortic valve. CORONARY ANGIOGRAPHY FINDINGS: RIGHT CORONARY ARTERY: Large dominant vessel. Caliber is good. It has moderate calcification. Mid RCA has about a 70% lesion with calcification and also the caliber then improves and distally it bifurcates into large PDA and PLV, both of which supply a sizable amount of myocardium. LEFT MAIN CORONARY ARTERY: Short, patent, disease-free vessel that bifurcates into LAD and circumflex. LEFT ANTERIOR DESCENDING CORONARY ARTERY: This vessel has a very tight proximal 95% lesion, and after the lesion the caliber improves. Vessel gives off a good-sized second diagonal branch, several septal branches, runs all the way to the apex, but the flow is sluggish. LEFT POSTERIOR CIRCUMFLEX CORONARY ARTERY: Technically a nondominant vessel with fairly decent caliber, gives off a good-sized obtuse marginal, runs in the AV groove, has minor irregularities, no significant disease. LEFT VENTRICULOGRAM: Left ventriculogram was not performed. FINAL IMPRESSION: This patient has a right-dominant system with a 70% calcified mid RCA lesion. Circumflex is free of significant disease. Proximal LAD has a 95% lesion and there is sluggish flow in the LAD. Left main is free of significant disease. Filling pressures are mildly elevated. No gradient across aortic valve. RECOMMENDATIONS: I recommended PCI of LAD and will stage the RCA intervention. PCI PROCEDURE DETAILS: I used a JL3.5 guide catheter to cannulate the left coronary artery and a run-through wire to cross the lesion. A 2.5 caliber 12 mm NC Trek balloon was used to pre-dilate the lesion. I then deployed a 15 mm long 3.25 caliber Xience stent. The mid portion of the stents still not fully expanded. I then used a 3.5 caliber NC Trek balloon up to 14 atmospheres. Excellent angiographic result was achieved without complication. The flow improved remarkably. Patient did not have angina but had EKG changes. The patient also received intravenous heparin and ACT was about 280 or so. He received 600 mg of Plavix. Patient will be continued on aspirin and Plavix for 12 months without interruption. Results were discussed with the patient and also with several family members. He was sent to the room in a stable condition. MMODL / IJN: [id number] /
[2021-12-26] MEDS: METOPROLOL TARTRATE 12.5 MG TAB PO SCH (20:50)
[2021-12-26] MEDS ORDERED: ATORVASTATIN 80 MG TAB PO SCH (21:00)
[2021-12-27] MEDS: SODIUM CHLORIDE 0.9% 1,000 ML in EMPTY BAG 1 BAG IV SCH (05:40)
[2021-12-27 08:21] LABS: Basophils # (A) 0.1 k/uL (0-0.2); Basophils % (A) 1 %; Eosinophils # (A) 0.3 k/uL (0-0.7); Eosinophils % (A) 6 %; HCT 42.2 % (39.0-53.0); HGB 13.6 gm/dL (13.0-17.5); Lymphocytes # (A) 0.7 k/uL (1.0-4.8); Lymphocytes % (A) 14 %; MCH 30.3 pg (25.0-35.0); MCHC 32.2 g/dL (31.0-37.0); MCV 94.2 fL (80.0-100.0); Mean Platelet Volume 7.8; Monocytes # (A) 0.4 k/uL (0-1.0); Monocytes % (A) 7 %; Neutrophils # (A) 3.6 k/uL (1.3-7.7); Neutrophils % (A) 70 %; Platelet Count 244 k/uL (150-450); RBC 4.48 m/uL (4.30-5.90); RDW 13.9 % (11.5-15.5); WBC 5.1 k/uL (3.8-10.6)
[2021-12-27 08:35] LABS: African American GFR (CKD) >90 (>60 ml/min/1.73 sqM); Anion Gap 5 mmol/L; Blood Urea Nitrogen 12 mg/dL (9-20); Carbon Dioxide 28 mmol/L (22-30); Chloride 107 mmol/L (98-107); Glucose 119 mg/dL (74-99); Non-African American GFR(CKD) 89 (>60 ml/min/1.73 sqM); Potassium 4.4 mmol/L (3.5-5.1); Sodium 140 mmol/L (137-145)
[2021-12-27] MEDS ORDERED: ASPIRIN 81 MG PO SCH ×2 (09:00)
[2021-12-27] MEDS ORDERED: ASPIRIN 325 MG TAB PO SCH (09:00)
[2021-12-27] MEDS ORDERED: CLOPIDOGREL 75 MG TAB PO SCH (09:00)
[2021-12-27 09:13] VITALS: BP 127/76; RESP 17; TEMP 97.9
--- NOTE | 2021-12-27 10:13 | P.DS ---
Providers Date of admission: 12/26/21 04:00 Expected date of discharge: 12/27/21 Attending physician: Yariel Rosas MD Consults: 12/26/21 04:00 Consult Physician Routine Consulting Provider: Liam Ramos Consult Reason/Comments: ACS Do you want consulting provider notified?: Yes 12/26/21 13:18 Consult Physician Routine Consulting Provider: Cardiology Margie Consult Reason/Comments: Post Interventional Patient Do you want consulting provider notified?: Already Contacted Primary care physician: [facility] Hospital Course: Discharge Diagnosis: NSTEMI. Patient underwent cardiac cath resulting in successful stenting to LAD. Cardiology recommending staged RCA intervention and plan to discuss further at patient follow-up appointment in office in 1 week. Patient discharged home with atorvastatin, metoprolol, and Plavix. Pletal was discontinued and patient instructed that he will need to continue dual antiplatelet therapy with aspirin and Plavix for 12 months without interruption. Hypertension -Monitor vital signs and continue daily medication regimen with lisinopril/hydrochlorothiazide. Lung cancer status post right upper lobe lung resection -Continue to follow up outpatient with oncologist at [facility] as scheduled. Hospital Course: Patient is a very pleasant 76-year-old male with a past medical history of hypertension and lung cancer right upper lobe status post lung resection one month ago at [facility]. He presented to the emergency department with a chief complaint of chest pain. Patient describes this pain as a heaviness/pressure like sensation spanning across his upper chest. Patient stated this pain began a few days ago and he was even evaluated at the [facility] where he underwent a full workup and was later discharged home. Patient states this previously felt heaviness across his chest returned to the came to the emergency department for evaluation. He denies experiencing any associating symptoms including headache, lightheadedness, dizziness, chest pain, palpitations, shortness of breath, abdominal pain, nausea, vomiting or experiencing any numbness/tingling/weakness in his extremities. In the emergency department, patient underwent a full evaluation. EKG showing sinus rhythm at 78 bpm with T-wave inversion in leads I, aVL and V2, V3, V4, V5, and V6 with ST depression in leads II and aVF. Troponin elevated at 0.094. CBC, coags, and CMP otherwise unremarkable. Chest x-ray revealing posttreatment changes in the right upper lobe with pleural thickening and volume loss, negative for overt heart failure. Patient admitted under our services with consultation to cardiology who took patient to cardiac Golf Coach on 12/26/21. Patient underwent cardiac cath resulting in successful stent placement to LAD in cardiology recommending staged RCA intervention. Echocardiogram was completed revealing impaired EF of 35-40% with segmental wall motion hypokinesis and mild mitral and tricuspid regurgitation. Patient had total resolution of previously reported chest pain after stent placement. Patient has been ambulatory in room and up and down the halls without any difficulties including chest pain, palpitations, or shortness of breath. Patient is medically stable at this time. Cardiology clearing patient recommending outpatient follow-up in 1 week as discussed. Patient educated on new medications and discharge plan and all questions answered at this time. Patient is medically stable for discharge and to follow up outpatient with PCP and cardiology. Prescriptions for atorvastatin, metoprolol, and Plavix were faxed to [facility] in hospital pharmacy provided patient with 2 week supply while waiting for the his medications from [place]. Physical exam: Vital signs reviewed and stable. General: Nontoxic, no distress and appears stated age. Derm: Skin warm and dry, normal coloration for ethnicity. Cardiac cath access site right wrist, no redness, swelling, bruising, or hematoma noted. Head: Atraumatic, normocephalic and symmetric. Eyes: EOMs intact, no lid lag, and anicteric sclera Mouth: no lip lesions, mucus membranes moist Cardiovascular: regular rate and rhythm with normal S1S2, no murmur, positive posterior tibial pulses bilaterally, and cap refill < 2 seconds. Lungs: Respirations even, regular, and unlabored on room air. Lungs CTA bilaterally, no rhonchi, no rales, no wheezing, and no accessory muscle usage. Abdominal: soft, nontender to palpation, no guarding, no appreciable organomegaly Ext: ROM intact. No gross muscle atrophy, no edema, no contractures Neuro: Speech clear, face symmetrical and CN II-XII grossly intact with no noted focal neuro deficits Psych: Alert and oriented to person, place, time, and situation. Appropriate and pleasant affect. A total of 37 minutes of time were spent preparing this complex discharge summary. Pt was discharged on 12/27/21 at 9:59 AM. Patient Condition at Discharge: Stable Plan - Discharge Summary Discharge Rx Participant: No New Discharge Prescriptions: New Atorvastatin [Lipitor] 80 mg PO HS 60 Days #60 tab Metoprolol Tartrate [Lopressor] 12.5 mg PO BID 60 Days #120 tab Clopidogrel [Plavix] 75 mg PO DAILY 60 Days #60 tab Continue amLODIPine [Norvasc] 10 mg PO DAILY Acetaminophen [Tylenol] 1,000 mg PO Q6H PRN PRN Reason: Pain Or Fever > 100.5 Lisinopril-Hctz 20-25 mg [Zestoretic 20-25] 1 tab PO DAILY buPROPion HCL [Wellbutrin SR] 150 mg PO BID Aspirin EC [Ecotrin Low Dose] 81 mg PO DAILY Sildenafil Citrate 50 mg PO DIRECTED PRN PRN Reason: sexual activity Discontinued cilostazoL [Pletal] 100 mg PO BID Discharge Medication List Acetaminophen [Tylenol] 1,000 mg PO Q6H PRN 06/12/20 [History] Lisinopril-Hctz 20-25 mg [Zestoretic 20-25] 1 tab PO DAILY 06/12/20 [History] amLODIPine [Norvasc] 10 mg PO DAILY 06/12/20 [History] Aspirin EC [Ecotrin Low Dose] 81 mg PO DAILY 12/26/21 [History] Sildenafil Citrate 50 mg PO DIRECTED PRN 12/26/21 [History] buPROPion HCL [Wellbutrin SR] 150 mg PO BID 12/26/21 [History] Atorvastatin [Lipitor] 80 mg PO HS 60 Days #60 tab 12/27/21 [Rx] Clopidogrel [Plavix] 75 mg PO DAILY 60 Days #60 tab 12/27/21 [Rx] Metoprolol Tartrate [Lopressor] 12.5 mg PO BID 60 Days #120 tab 12/27/21 [Rx] Follow up Appointment(s)/Referral(s): Portillo Vaughn MD [STAFF PHYSICIAN] - 1 Week [facility] [Primary Care Provider] - 1-2 days Patient Instructions/Handouts: Heart Catheterization (DC), After Radial Heart Catheterization (GEN) Activity/Diet/Wound Care/Special Instructions: Activity: As tolerated. Take breaks as needed. Diet: Heart healthy and carb consistent diet. Avoid salts, or foods with hidden salts such as canned or boxed foods and frozen dinners. Extra salt makes your heart work harder and traps the fluid in your body for longer. Special Instructions: Take all of your medications as directed and remember to keep all of your doctor's appointments and follow-up as needed. Please follow post-cardiac cath instructions provided to you upon discharge. Thank you for allowing us to participate in your care, it was truly a pleasure having you for our patient!!! And thank you for your service, it is always an honor to meet and care for a !!!! Discharge Disposition: HOME SELF-CARE
[2021-12-27] MEDS: buPROPion SR 100 MG TABLET.ER PO SCH (10:21)
[2021-12-27] MEDS: METOPROLOL TARTRATE 12.5 MG TAB PO SCH (10:21)
[2021-12-27] MEDS: LISINOPRIL-HCTZ 20-25 MG 1 EACH TAB PO SCH (10:21)
[2021-12-27] MEDS: cilostazoL 100 MG TAB PO SCH (10:27)
[2021-12-27 11:07] VITALS: PULSE 66
[2021-12-27 11:18] LABS: HDL Cholesterol 26.9 mg/dL (40.00-60.00)
[2021-12-27 11:35] LABS: Chol/HDL Ratio 7.36 Ratio
--- NOTE | 2021-12-27 13:34 | P.PN ---
Subjective Progress Note Date: 12/27/21 Principal diagnosis: Acute coronary syndrome This is José Foy NP, I'm dictating on behalf of Dr. Dickerson's H&P and A&P. Patient was interviewed and examined. Patient is a pleasant 76-year-old male who initially presented to hospital with acute coronary syndrome, and underwent stenting of the proximal LAD. Patient is doing very well today, with no complaints of chest pain, shortness of breath, dizziness, or weakness or fatigue. Patient appears to have complete resolution of symptoms post stent placement. GENERAL: Well-appearing, well-nourished and in no acute distress. NECK: Supple without JVD or thyromegaly. LUNGS: Breath sounds clear to auscultation bilaterally. Respiration equal and unlabored. No wheezes, rales or rhonchi. HEART: Regular rate and rhythm without murmurs, rubs or gallops. S1 and S2 heard. EXTREMITIES: Normal range of motion, no edema. No clubbing or cyanosis. Peripheral pulses intact and strong. VITALS: Temp 97.9, pulse 58, respirations 17, blood pressure 127/76, O2 saturation 95% on room air TELEMETRY: Normal sinus rhythm LABS: White count 5.1, hemoglobin 13.6, platelet 244, sodium 140, potassium 4.4, BUN 12, creatinine 0.78 IMPRESSION: 1. NSTEMI 2. Status post coronary angioplasty and stent placement to the LAD 3. Hypertension PLAN: Continue cardiac medications as previously ordered Patient may be discharged from a cardiology standpoint Patient should follow-up in the office within one week Thank you for allowing us to participate in the care of this patient. Objective - Vital Signs Vital signs: Vital Signs Temp 97.9 F 12/27/21 08:10 Pulse 58 L 12/27/21 08:10 Resp 17 12/27/21 08:10 BP 127/76 12/27/21 08:10 Pulse Ox 95 12/27/21 08:10 FiO2 Intake & Output 12/26/21 12/27/21 12/27/21 18:59 06:59 18:59 Intake Total 198.157 1493 120 Balance 149.618 9444 120 Weight 82.554 kg Intake: IV 550 Intake, IV Titration 78.092 750 Amount Heparin Sod,Pork in 0.45% 78.092 NaCl 25,000 unit In 0.45 % NaCl 1 250ml.bag @ 12 UNITS/KG/HR 9.906 mls/hr IV .Q24H ROVERTO Rx#: [id number] Sodium Chloride 0.9% 1, 750 000 ml In Empty Bag 1 bag @ 75 mls/hr IV .[id number] ROVERTO Rx#:[id number] Oral 720 120 Other: Voiding Method Urinal Urinal # Voids 4 - Labs CBC & Chem 7: 12/27/21 07:58 12/27/21 07:58 Labs: Abnormal Lab Results - Last 24 Hours (Table) 12/26/21 12/27/21 12/27/21 Range/Units 01:57 07:58 07:58 Lymphocytes # 0.7 L (1.0-4.8) k/uL Glucose 119 H (74-99) mg/dL Triglycerides 511.00 H (0.00-149.00) mg/dL HDL Cholesterol 26.90 L (40.00-60.00) mg/dL
== END 2021-12-27 11:53 | disposition home or self-care (01) | DRG 247 ==
LOC: EC 01:10 → 3SCARD 04:00
PROVIDERS: ADMIT Family Medicine; ATTEND Family Medicine
PROC: B2111ZZ Fluoroscopy of Multiple Coronary Arteries using Low Osmolar Contrast (ICD-10-PCS; 2021-12-26)
PROC: 027034Z Dilation of Coronary Artery, One Artery with Drug-eluting Intraluminal Device, Percutaneous Approach (ICD-10-PCS; principal; 2021-12-26 09:55)
PROC: 4A023N7 Measurement of Cardiac Sampling and Pressure, Left Heart, Percutaneous Approach (ICD-10-PCS; 2021-12-26 09:55)
DX: I21.4 Non-ST elevation (NSTEMI) myocardial infarction (principal); I25.10 Atherosclerotic heart disease of native coronary artery without angina pectoris; I10 Essential (primary) hypertension; G89.29 Other chronic pain; M54.9 Dorsalgia, unspecified; F43.10 Post-traumatic stress disorder, unspecified; F32.A Depression, unspecified; I08.1 Rheumatic disorders of both mitral and tricuspid valves; E78.5 Hyperlipidemia, unspecified; Z79.02 Long term (current) use of antithrombotics/antiplatelets; Z79.82 Long term (current) use of aspirin; Z79.899 Other long term (current) drug therapy; Z85.118 Personal history of other malignant neoplasm of bronchus and lung; Z87.891 Personal history of nicotine dependence; Z90.2 Acquired absence of lung [part of]; Z87.19 Personal history of other diseases of the digestive system
CPT/HCPCS: 36415; 71046; 80048; 80053; 80061; 82150; 83690; 83721; 83735; 84484; 85025; 85610; 85730; 93306; 93458; 96365; 96366; 99285

== ENCOUNTER 2022-01-07 11:14 | Emergency (ER) | payer OTHER, MEDICARE ==
[2022-01-07 11:20] VITALS: RESP 18
--- NOTE | 2022-01-07 11:42 | ED ---
Extremity Problem HPI - General Chief complaint: Extremity Problem,Nontraumatic Stated complaint: Revisit/Rash Time Seen by Provider: 01/07/22 11:21 Source: patient, RN notes reviewed Mode of arrival: ambulatory Limitations: no limitations - History of Present Illness Initial comments: This a 76-year-old male presents emergency Department chief complaint of right arm pain. Patient states he had a heart cath one week ago states that he had an IV in that same arm and states that he has some bruising, hard lump in his arm. Patient states there is concern about possible blood clot. He denies any chest pain shortness with fevers chills patient offers no complaints. - Related Data Home Medications Medication Instructions Recorded Confirmed Acetaminophen [Tylenol] 1,000 mg PO Q6H PRN 06/12/20 12/26/21 Lisinopril-Hctz 20-25 mg 1 tab PO DAILY 06/12/20 12/26/21 [Zestoretic 20-25] amLODIPine [Norvasc] 10 mg PO DAILY 06/12/20 12/26/21 Aspirin EC [Ecotrin Low Dose] 81 mg PO DAILY 12/26/21 12/26/21 Sildenafil Citrate 50 mg PO DIRECTED PRN 12/26/21 12/26/21 buPROPion HCL [Wellbutrin SR] 150 mg PO BID 12/26/21 12/26/21 Previous Rx's Medication Instructions Recorded Atorvastatin [Lipitor] 80 mg PO HS 60 Days #60 tab 12/27/21 Clopidogrel [Plavix] 75 mg PO DAILY 60 Days #60 tab 12/27/21 Metoprolol Tartrate [Lopressor] 12.5 mg PO BID 60 Days #120 tab 12/27/21 Allergies Allergy/AdvReac Type Severity Reaction Status Date / Time No Known Allergies Allergy Verified 01/07/22 11:15 Review of Systems ROS Statement: Those systems with pertinent positive or pertinent negative responses have been documented in the HPI. ROS Other: All systems not noted in ROS Statement are negative. Past Medical History Past Medical History: Hypertension, Myocardial Infarction ([place]) Additional Past Medical History / Comment(s): Lung CA right upper lung History of Any Multi-Drug Resistant Organisms: None Reported Past Surgical History: Heart Catheterization With Stent, Hernia Repair Additional Past Surgical History / Comment(s): carotid left Past Anesthesia/Blood Transfusion Reactions: No Reported Reaction Past Psychological History: PTSD Smoking Status: Former smoker Past Alcohol Use History: Occasional Past Drug Use History: None Reported - Past Family History Father Family Medical History: No Reported History Additional Family Medical History / Comment(s): Father was healthy Mother Family Medical History: No Reported History Additional Family Medical History / Comment(s): Mother was healthy General Exam Limitations: no limitations General appearance: alert, in no apparent distress Head exam: Present: atraumatic, normocephalic, normal inspection Neck exam: Present: normal inspection. Absent: tenderness, meningismus, lymphadenopathy Respiratory exam: Present: normal lung sounds bilaterally. Absent: respiratory distress, wheezes, rales, rhonchi, stridor Cardiovascular Exam: Present: regular rate, normal rhythm, normal heart sounds. Absent: systolic murmur, diastolic murmur, rubs, gallop, clicks GI/Abdominal exam: Present: soft, normal bowel sounds. Absent: distended, tenderness, guarding, rebound, rigid Extremities exam: Present: other (Right mid forearm there is an area of ecchymosis, palpable lump noted pulses are equal bilaterally Reflux 2 seconds there is no proximal arm tenderness or swelling noted) Course Vital Signs 01/07/22 11:16 Temperature 97.4 F L Pulse Rate 58 L Respiratory 18 Rate Blood Pressure 134/86 O2 Sat by Pulse 97 Oximetry Medical Decision Making - Medical Decision Making Ultrasound is negative for acute DVT patient has right leg superficial thrombophlebitis Disposition Clinical Impression: Superficial thrombophlebitis of right upper extremity Disposition: HOME SELF-CARE Condition: Stable Instructions (If sedation given, give patient instructions): Superficial Thrombophlebitis (ED) Additional Instructions: Please return to the Emergency Department if symptoms worsen or any other concerns. Is patient prescribed a controlled substance at d/c from ED?: No Referrals: [facility],Clinic [Primary Care Provider] - 1-2 days Time of Disposition: 12:53
--- NOTE | 2022-01-07 12:36 | US ---
EXAMINATION TYPE: US venous doppler duplex UE RT DATE OF EXAM: 01/07/2022 COMPARISON: NONE CLINICAL HISTORY: pain. Right lower arm bruising SIDE PERFORMED: Right Grayscale, color doppler, spectral doppler imaging performed of the deep veins of the right upper ext remities. There is normal flow, compressibility and vascular waveforms of the right intrajugular, davalos bclavian, axillary, brachial, basilic, cephalic, radial, and ulnar veins. Right Arm: Negative for DVT IMPRESSION: No evidence for deep venous thrombosis of the right upper extremity.
[2022-01-07 13:11] VITALS: BP 122/78; PULSE 82; TEMP 97.8
== END 2022-01-07 13:10 | disposition home or self-care (01) ==
LOC: EC 11:14
DX: I80.8 Phlebitis and thrombophlebitis of other sites (principal); I10 Essential (primary) hypertension; I25.2 Old myocardial infarction; F43.10 Post-traumatic stress disorder, unspecified; Z87.891 Personal history of nicotine dependence; Z72.89 Other problems related to lifestyle; Z79.899 Other long term (current) drug therapy
CPT/HCPCS: 99283

== ENCOUNTER → 2022-01-15 | Outpatient (CLI) | payer OTHER, MEDICARE ==
[2022-01-15 18:15] LABS: HCT 43.3 % (39.6-50.0); HGB 13.6 g/dL (13.0-17.0); MCH 29.3 pg (27.0-32.0); MCHC 31.4 g/dL (32.0-37.0); MCV 93.3 fL (80.0-97.0); Mean Platelet Volume 10.9 fL (9.5-12.2); NRBC Per 100 WBC 0 /100 WBCS (0.0-0.0); Platelet Count 269 X 10*3/uL (140-440); RBC 4.64 X 10*6/uL (4.40-5.60); RDW 14.4 % (11.5-14.5); WBC 6.73 X 10*3/uL (4.50-10.00)
[2022-01-15 20:01] LABS: African American GFR (CKD) 76.2 (60.0-200.0); Anion Gap 11.5 mmol/L (10.00-18.00); Blood Urea Nitrogen 16.4 mg/dL (9.0-27.0); Carbon Dioxide 27.5 mmol/L (20.0-27.5); Non-African American GFR(CKD) 65.8 (60.0-200.0); Potassium 4.3 mmol/L (3.5-5.5)
== END | disposition home or self-care (01) ==
LOC: LABPAT 12:49
PROVIDERS: ATTEND Internal Medicine Interventional Cardiology
DX: Z01.812 Encounter for preprocedural laboratory examination (principal); I25.10 Atherosclerotic heart disease of native coronary artery without angina pectoris
CPT/HCPCS: 36415; 80051; 82565; 84520; 85027

== ENCOUNTER 2022-01-19 09:20 | Day surgery (SDC) | payer MEDICARE, OTHER ==
[2022-01-16 08:32] VITALS: BMI 27.3
[~2022-01-19 09:20] MED LIST changes: +ALPRAZolam 0.25 MG TAB PO PRN; +ALPRAZolam 0.5 MG TAB PO PRN; +ASPIRIN 325 MG TAB PO STA; +ATORVASTATIN 80 MG TAB PO STA; +HEPARIN SODIUM,PORCINE 10,000 UNIT in SODIUM CHLORIDE 0.9% 1,000 ML IRRIGATION PRN; +HEPARIN SODIUM,PORCINE 2,500 UNIT in SODIUM CHLORIDE 0.9% 250 ML IRRIGATION PRN; +NITROGLYCERIN SL TABS 0.4 MG TAB SUBLINGUAL PRN; -REGADENOSON 0.4 MG/5 ML SYRINGE IV ONE
[2022-01-19] MEDS ORDERED: ASPIRIN 81 MG ONE (09:35)
[2022-01-19] MEDS: SODIUM CHLORIDE 0.9% 1,000 ML in EMPTY BAG 1 BAG IV SCH ×2 (09:48→23:30)
[2022-01-19] MEDS ORDERED: HEPARIN SODIUM 1,000 UN/ML (10ML VL) ONE (10:43)
[2022-01-19] MEDS ORDERED: VERAPAMIL 2.5 MG/ML 2 ML AMP ONE (11:01)
[2022-01-19] MEDS ORDERED: MIDAZOLAM 2 MG/2 ML VIAL IV ONE ×2 (11:13→11:18)
[2022-01-19] MEDS: LIDOCAINE 1% INJ 10MG/ML (30 ML VIAL-PF) SQ ONE ×5 (11:13→11:35)
[2022-01-19] MEDS: HEPARIN SODIUM 1,000 UN/ML (10ML VL) IV ONE ×3 (11:50→12:39)
[2022-01-19] MEDS ORDERED: HYDROmorphone 0.5 MG/0.5 ML SYRINGE IVP ONE (12:11)
[2022-01-19] MEDS ORDERED: PHENYLEPHRINE-0.9% NACL SYG 1,000 MCG/10 ML SYRINGE IV ONE (12:17)
[2022-01-19] MEDS ORDERED: IOPAMIDOL-370 100ML BTL INJ ONE ×3 (12:31→13:08)
[2022-01-19] MEDS ORDERED: CLOPIDOGREL 75 MG TAB ONE (13:16)
[2022-01-19] MEDS ORDERED: CLOPIDOGREL 75 MG TAB PO ONE (13:19)
[2022-01-19] MEDS: SODIUM CHLORIDE 0.9% 1,000 ML IV SCH (17:57)
[2022-01-19] MEDS ORDERED: ATORVASTATIN 80 MG TAB PO SCH (21:00)
[2022-01-19] MEDS: buPROPion SR 150 MG TABLET.ER PO SCH (21:04)
[2022-01-20] MEDS: SODIUM CHLORIDE 0.9% 1,000 ML IV SCH (06:17)
[2022-01-20] MEDS: SODIUM CHLORIDE 0.9% 1,000 ML in EMPTY BAG 1 BAG IV SCH (06:19)
[2022-01-20 06:30] LABS: Basophils % (A) 1 %; Eosinophils # (A) 0.2 k/uL (0-0.7); Eosinophils % (A) 4 %; HCT 38.1 % (39.0-53.0); HGB 12.1 gm/dL (13.0-17.5); Lymphocytes # (A) 0.8 k/uL (1.0-4.8); Lymphocytes % (A) 14 %; MCH 29.8 pg (25.0-35.0); MCHC 31.8 g/dL (31.0-37.0); MCV 93.6 fL (80.0-100.0); Mean Platelet Volume 8.3; Monocytes # (A) 0.4 k/uL (0-1.0); Monocytes % (A) 7 %; Neutrophils # (A) 4.2 k/uL (1.3-7.7); Neutrophils % (A) 72 %; Platelet Count 192 k/uL (150-450); RBC 4.06 m/uL (4.30-5.90); RDW 14.1 % (11.5-15.5); WBC 5.8 k/uL (3.8-10.6)
[2022-01-20 06:52] LABS: African American GFR (CKD) >90 (>60 ml/min/1.73 sqM); Anion Gap 8 mmol/L; Blood Urea Nitrogen 10 mg/dL (9-20); Calcium 8.4 mg/dL (8.4-10.2); Carbon Dioxide 22 mmol/L (22-30); Chloride 109 mmol/L (98-107); Glucose 98 mg/dL (74-99); Non-African American GFR(CKD) >90 (>60 ml/min/1.73 sqM); Potassium 3.8 mmol/L (3.5-5.1); Sodium 139 mmol/L (137-145)
--- NOTE | 2022-01-20 08:00 | CC ---
CARDIAC CATHETERIZATION REPORT PROCEDURES: 1. Transvenous temporary pacemaker placement from right brachial venous approach. 2. Orbital atherectomy of proximal and mid RCA. 3. PTCA and stenting of proximal and mid RCA with 2 drug-eluting stents. PERFORMED BY: Dr. Matt Vaughn. Moderate conscious sedation time was 117 minutes. The patient was administered Versed. Oxygen saturation, hemodynamics and EKG were monitored closely. CLINICAL INFORMATION: Mr. Don Frey is a 76-year-old gentleman history of hypertension, hyperlipidemia and lung cancer status post lobectomy and also had carotid endarterectomy performed. These procedures were performed within the last 3 months. On December 26, he presented to the hospital with a subacute non-ST elevation MS with anteroapical septal hypokinesia and ejection fraction of 40%. Cardiac cath from right radial approach revealed that he had a 95% proximal LAD that was stented with a good result. He was brought back for elective PCI of heavily calcified super-dominant RCA with a lesion in the proximal area as well as at the junction of the proximal and middle one third, which was heavily calcified. He also had a moderate lesion in the mid RCA of about 40%. He was brought in for the procedure electively. Risks, benefits, options, and rationale were discussed at length with the patient and family. They understood all details and wished to proceed with the procedure. PROCEDURE NOTE: Under local anesthesia and strict aseptic precautions, I attempted a right radial access. I had a good blood return, but I had difficulty threading the wire and therefore I switched over to right femoral approach. A 6-Jamaican introducer was placed in the right femoral artery under strict aseptic precautions and local anesthesia. There was a brachial IV access in the right brachial vein and from this with a micropuncture wire, I placed a 6-Jamaican introducer. Through the 6-Jamaican introducer, a 5-Jamaican balloon tipped pacemaker was advanced and positioned in the right ventricular apex and good thresholds were obtained. The threshold was 0.4 mV and the pacemaker was set at a back-up rate of 35 beats per minute at a MA of 5.0. I then proceeded to perform PCI of RCA. I used Allright 3.5 guide catheter to cannulate the right coronary artery. Before cannulating the right coronary artery using a 3.5 left Kaela diagnostic catheter, I did selective coronary angiography and noted that the proximal LAD that was stented 3 weeks ago was widely patent with remarkably good flow. In fact, the patient's LV function had normalized also. Allright 3.5 guide catheter was used to cannulate the right coronary artery. A run- through wire was used to cross the lesion. A tele port catheter was used to exchange the wire and through this a Nitinol wire was advanced. I performed orbital atherectomy of the proximal and mid RCA lesions, which was heavily calcified. During the procedure, the patient was hemodynamically stable. He did use the pacemaker during the initial pass. I did about 3 passes with orbital atherectomy catheter. The patient had chest pain and also mild EKG changes, but the vessel remained open. The patient was stabilized. I gave 1 dose of phenylephrine because of transient hypotension. Following this, I used a tele port catheter and switched over to a long run-through wire. Over the run-through wire, I advanced a 15 mm long 2.5 caliber NC Trek balloon and pre-dilated the lesion. I then deployed a 3.25 caliber 15 mm long Xience stent. Excellent angiographic result was achieved. I then addressed the proximal lesion with a 3.5 caliber 12 mm Xience stent. Excellent angiographic result was achieved. I post dilated the 3.5 stent with a 4.0 NC Trek balloon at 15 atmospheres. Excellent angiographic result was achieved. The patient received intravenous heparin and eventually the ACT was 270. He also received 300 mg of Plavix. He was already on aspirin and Plavix combination. The patient is advised to be on aspirin Plavix combination without interruption for minimum of 12 months. Final angiograms revealed in the MARX caudal projection that there was a mid lesion of about 55% eccentric in nature, but this did not seem critical and I suggested that we will not pursue intervention, instead we will try performing a physiological assessment of the lesion by a Lexiscan stress test in the next 3-4 weeks. The sheath was taken out and Angio-Seal device used to secure hemostasis. The right radial brachial sheath was also taken out and manual compression used to secure hemostasis. Patient tolerated procedure well. Excellent angiographic result of the proximal and mid lesions was achieved. He was sent to the room in a stable condition. The results were discussed with the patient as well as his and daughter. I expect he will be discharged tomorrow if he remains stable. I will see him in the office in 1 week. MMODL / IJN: [id number] /
[2022-01-20 08:36] VITALS: BP 110/66; PULSE 63; RESP 16; TEMP 98
[2022-01-20] MEDS: buPROPion SR 150 MG TABLET.ER PO SCH (08:37)
[2022-01-20] MEDS ORDERED: METOPROLOL TARTRATE 12.5 MG TAB PO SCH (09:00)
[2022-01-20] MEDS ORDERED: CLOPIDOGREL 75 MG TAB PO SCH (09:00)
[2022-01-20] MEDS ORDERED: ASPIRIN 81 MG PO SCH (09:00)
[2022-01-20] MEDS ORDERED: LISINOPRIL-HCTZ 20-25 MG 1 EACH TAB PO SCH (09:00)
[2022-01-20] MEDS ORDERED: amLODIPine 5 MG TAB PO SCH (09:00)
--- NOTE | 2022-01-20 09:08 | DS ---
DISCHARGE SUMMARY DIAGNOSIS: Unstable angina. PROCEDURES PERFORMED: Percutaneous transluminal coronary angioplasty and stenting of the proximal and mid right coronary artery with orbital atherectomy and transvenous temporary pacemaker. CLINICAL INFORMATION: Mr. Frey was brought in for elective PCI of a complex calcified RCA lesion, which was performed yesterday uneventfully. He has some oozing from the right groin. A pressure bandage was applied. He is doing well this morning. EKG and hemoglobin are unremarkable. We are waiting for the BMP. The patient is asymptomatic. Vitals are stable. Blood pressure is 128/70, pulse rate is 60 per minute. No JVD. S1-S2 heard normally. Short systolic murmur, left sternal border. Lungs are clear. Abdomen and lower extremity exam unchanged. Right groin has a small area of oozing. Pressure bandage was applied. We will increase activity and make sure the right groin oozing is completely resolved before he is discharged later this morning. Discharge instructions regarding activity, diet, and medications were given. I will see him in the office on January 27 at 9:45 a.m. The patient is asymptomatic and doing well post procedure. MMODL / IJN: [id number] /
== END 2022-01-20 16:55 | disposition home or self-care (01) ==
LOC: CATHCVL 09:20 → 3SCARD 13:11 → CATHCVL 01-20 16:55
PROVIDERS: ATTEND Internal Medicine Interventional Cardiology
DX: I25.110 Atherosclerotic heart disease of native coronary artery with unstable angina pectoris (principal); I10 Essential (primary) hypertension; Z20.822 Contact with and (suspected) exposure to COVID-19
CPT/HCPCS: 80048; 85025; 87635; C9602; C1769 ×8; C1760; C1887 ×3; C1894 ×2; C1725 ×2; C1724; C1874 ×2; J2250; S0106 ×2; J2001; J1644; J2370; J1170; Q9967

== ENCOUNTER 2022-01-20 16:57 | Observation (INO) | payer OTHER, MEDICARE ==
[2022-01-20 17:41] VITALS: TEMP 98
--- NOTE | 2022-01-20 21:57 | ED ---
General Adult HPI - General Chief complaint: Recheck/Abnormal Lab/Rx Stated complaint: Post-op complications Time Seen by Provider: 01/20/22 19:02 Source: patient Mode of arrival: ambulatory Limitations: no limitations - History of Present Illness Initial comments: This 76-year-old male present with a complaint of some bleeding from his right groin. He states that he had a heart catheterization done yesterday. He had some mild bleeding and oozing from his wound yesterday and today. He was discharged home this morning. He states that he is currently on Plavix as well as aspirin but no other blood thinners. The bleeding has persisted today. He states that it is only mild oozing but he has had to change her dressing and it also leaked onto his clothes approximately 5 or 6 times today. He denies any lightheadedness or weakness. There is no chest pain or shortness of breath. He is otherwise asymptomatic. He did call up Dr. Vaughn who told him to come back to the emergency department. No other complaints or modifying factors. - Related Data Home Medications Medication Instructions Recorded Confirmed Lisinopril-Hctz 20-25 mg 1 tab PO DAILY 06/12/20 01/20/22 [Zestoretic 20-25] amLODIPine [Norvasc] 5 mg PO DAILY 06/12/20 01/20/22 Aspirin EC [Ecotrin Low Dose] 81 mg PO DAILY 12/26/21 01/20/22 buPROPion HCL [Wellbutrin SR] 150 mg PO BID 12/26/21 01/20/22 Metoprolol Tartrate 12.5 mg PO DAILY 01/16/22 01/20/22 Previous Rx's Medication Instructions Recorded Atorvastatin [Lipitor] 80 mg PO HS 60 Days #60 tab 12/27/21 Clopidogrel [Plavix] 75 mg PO DAILY 60 Days #60 tab 12/27/21 Allergies Allergy/AdvReac Type Severity Reaction Status Date / Time No Known Allergies Allergy Verified 01/20/22 21:39 Review of Systems ROS Statement: Those systems with pertinent positive or pertinent negative responses have been documented in the HPI. ROS Other: All systems not noted in ROS Statement are negative. Past Medical History Past Medical History: Hypertension, Myocardial Infarction ([place]) Additional Past Medical History / Comment(s): Lung CA right upper lung History of Any Multi-Drug Resistant Organisms: None Reported Past Surgical History: Heart Catheterization With Stent, Hernia Repair Additional Past Surgical History / Comment(s): carotid left Past Anesthesia/Blood Transfusion Reactions: No Reported Reaction Past Psychological History: PTSD Smoking Status: Former smoker Past Alcohol Use History: Occasional Past Drug Use History: None Reported - Past Family History Father Family Medical History: No Reported History Mother Family Medical History: No Reported History Brother(s) Family Medical History: Cancer General Exam - General Exam Comments Initial Comments: GENERAL: The patient is well nourished and well hydrated. VITAL SIGNS: Heart rate, blood pressure, respiratory rate reviewed as recorded in nurse's notes. EYES: Pupils are round and reactive. Extraocular movements are intact. No conjunctival / lid redness or swelling. ENT: No external evidence of injury, swelling, or ecchymosis. Airway is patent. Throat is clear. NECK: Nontender. No swelling or evidence of injury. No subcutaneous emphysema. Trachea is midline. No thyroid mass. HEART: Regular rate and rhythm. Good peripheral pulses. LUNGS/CHEST: Breath sounds clear and equal bilaterally. No rales, rhonchi, or wheezes. No ecchymosis, subcutaneous emphysema, or tenderness. ABDOMEN: Abdomen soft without tenderness. No palpable masses or organomegaly. No peritoneal signs. No abdominal wall swelling or ecchymosis. EXTREMITIES: No extremity tenderness. Normal muscle tone and function. No thoracolumbar tenderness. NEUROLOGIC: Sensation is grossly intact. Cranial nerve exam reveals face is symmetrical, tongue is midline, speech is clear. SKIN: No abrasions or ecchymosis is noted. No induration or masses noted. There is some mild oozing of blood from small puncture site noted in the right groin. There is no significant ecchymosis or swelling identified. PSYCHIATRIC: Alert and oriented. Appropriate behavior and judgment. Limitations: no limitations Course Vital Signs 01/20/22 17:39 Temperature 98 F Pulse Rate 64 Respiratory 18 Rate O2 Sat by Pulse 97 Oximetry Medical Decision Making - Medical Decision Making The patient was seen and examined. All diagnostics were reviewed. The patient's hemoglobin is at 12.1. In comparison, approximately 3-4 weeks ago and was 14.0. Remainder of labs are essentially within normal limits. Case is discussed with Dr. Omalley from cardiology and he requests that patient have a arterial ultrasound of the right groin to rule out pseudoaneurysm. Dr. gaspar later does call in and states that he would like a them stop applied to the right groin as well and this is arranged. He would like him to be admitted to the hospital for observation to make sure that the bleeding is controlled. The patient is currently having ultrasound and this will be reviewed. Case also wi ll be discussed with internal medicine in the near future and patient be admitted to observation for further treatment. Disposition Clinical Impression: Bleeding at insertion site, History of left heart catheterization, Anemia Disposition: ADMITTED IP TO THIS HOSP Condition: Fair Is patient prescribed a controlled substance at d/c from ED?: No Time of Disposition: 21:57 Decision Date: 01/20/22 Decision Time: 21:57
[2022-01-20 22:14] LABS: HCT 38.2 % (39.0-53.0); HGB 12.5 gm/dL (13.0-17.5); RBC 4.17 m/uL (4.30-5.90); WBC 7.2 k/uL (3.8-10.6)
[2022-01-20 22:15] LABS: Basophils # (A) 0.1 k/uL (0-0.2); Basophils % (A) 1 %; Eosinophils # (A) 0.3 k/uL (0-0.7); Eosinophils % (A) 4 %; Lymphocytes # (A) 1.1 k/uL (1.0-4.8); Lymphocytes % (A) 15 %; MCH 29.9 pg (25.0-35.0); MCHC 32.7 g/dL (31.0-37.0); MCV 91.6 fL (80.0-100.0); Monocytes # (A) 0.4 k/uL (0-1.0); Monocytes % (A) 6 %; Neutrophils # (A) 5.3 k/uL (1.3-7.7); Neutrophils % (A) 73 %; Platelet Count 212 k/uL (150-450); RDW 14.2 % (11.5-15.5)
[2022-01-20 22:17] LABS: African American GFR (CKD) >90 (>60 ml/min/1.73 sqM); Anion Gap 15 mmol/L; Blood Urea Nitrogen 11 mg/dL (9-20); Calcium 9.4 mg/dL (8.4-10.2); Carbon Dioxide 20 mmol/L (22-30); Chloride 102 mmol/L (98-107); Glucose 93 mg/dL (74-99); Non-African American GFR(CKD) >90 (>60 ml/min/1.73 sqM); Potassium 3.7 mmol/L (3.5-5.1); Sodium 137 mmol/L (137-145)
--- NOTE | 2022-01-20 22:45 | US ---
EXAMINATION TYPE: US lower ext pseudo artery RT DATE OF EXAM: 01/20/2022 COMPARISON: NONE CLINICAL HISTORY: bleeding s/p heart cath. bleeding in right groin at cath site EXAM PERFORMED: Grayscale and color Doppler duplex imaging performed of the groin, post cardiac rafael ter to assess for pseudoaneurysm. SIDE PERFORMED: Right Color and Waveform Doppler performed to assess for the presence of pseudoaneurysm; Is there ultrasound evidence of a pseudoaneurysm: No Is there evidence of AV shunting: No Is there a fluid collection present: Yes. 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 ? Hematoma IMPRESSION: Small elongated complex fluid collection anterior to the common femoral artery could be hematoma. No evidence of a pseudoaneurysm. No evidence of hemodynamic stenosis.
[2022-01-20 23:05] LABS: INR 0.9 (<1.2); Partial Thromboplastin Time 22.8 sec (22.0-30.0); Prothrombin Time 10.2 sec (9.0-12.0)
[2022-01-20] MEDS ORDERED: LORazepam 2 MG/ML INJ IV STA (23:19)
[2022-01-20] MEDS ORDERED: ACETAMINOPHEN TAB 325 MG TAB PO PRN (23:20)
[2022-01-20] MEDS ORDERED: ONDANSETRON 4 MG/2 ML VIAL IVP PRN (23:20)
[2022-01-20] MEDS ORDERED: ALPRAZolam 0.25 MG TAB PO PRN (23:20)
--- NOTE | 2022-01-21 04:46 | P.HPIM ---
History of Present Illness H&P Date: 01/20/22 Chief Complaint: right groin bleeding , left heart cath access site 76 year old male with hypertension , CAD s/p stents patient was discharged today , after a left heart cath and PCI to RCA with 2 stents deployed. at home , he noticed blood oozing off his left heart cath ac cess site over the right groin, his doctor recommended he comes in for evaluation cardiology recommended applying pressure and monitoring . patient denies any pain , numbnesss or cold feeling over right lower extremity , denies any cold or hot sensation. US done showed no evidence of pseudoanurysm patient denies smoking, alcohol or illicit drugs he otherwise feels fine, denies any chest pain , troubl ebreathing , fever, chills, abd pain , nausea or vomiting hemoglobin done in the ED , shows hbg>12 a drop on 1 gm from baseline Review of Systems Pertinent positives as noted in HPI. All other systems were reviewed and are negative Past Medical History Past Medical History: Hypertension, Myocardial Infarction ([place]) Additional Past Medical History / Comment(s): Lung CA right upper lung History of Any Multi-Drug Resistant Organisms: None Reported Past Surgical History: Heart Catheterization With Stent, Hernia Repair Additional Past Surgical History / Comment(s): carotid left Past Anesthesia/Blood Transfusion Reactions: No Reported Reaction Past Psychological History: PTSD Smoking Status: Former smoker Past Alcohol Use History: Occasional Past Drug Use History: None Reported - Past Family History Father Family Medical History: No Reported History Mother Family Medical History: No Reported History Brother(s) Family Medical History: Cancer Medications and Allergies Home Medications Medication Instructions Recorded Confirmed Type Lisinopril-Hctz 20-25 mg 1 tab PO DAILY 06/12/20 01/20/22 History [Zestoretic 20-25] amLODIPine [Norvasc] 5 mg PO DAILY 06/12/20 01/20/22 History Aspirin EC [Ecotrin Low Dose] 81 mg PO DAILY 12/26/21 01/20/22 History buPROPion HCL [Wellbutrin SR] 150 mg PO BID 12/26/21 01/20/22 History Atorvastatin [Lipitor] 80 mg PO HS 60 Days #60 tab 12/27/21 01/20/22 Rx Clopidogrel [Plavix] 75 mg PO DAILY 60 Days #60 tab 12/27/21 01/20/22 Rx Metoprolol Tartrate 12.5 mg PO DAILY 01/16/22 01/20/22 History Allergies Allergy/AdvReac Type Severity Reaction Status Date / Time No Known Allergies Allergy Verified 01/20/22 21:39 Physical Exam Vitals: Vital Signs Temp Pulse Resp Pulse Ox 01/20/22 17:39 98 F 64 18 97 Intake and Output 01/20/22 01/20/22 01/20/22 06:59 14:59 22:59 Other: Weight 80.739 kg Constitutional: No acute distress, conversant, pleasant Eyes: Anicteric sclerae, moist conjunctiva, Pupils equal round reactive to light ENMT: NC/AT Oropharynx clear, no erythema, or exudates Neck: Supple, no masses, or JVD No carotid bruits No thyromegaly Lungs: Clear to auscultation Clear to percussion Normal respiratory effort, no accessory muscle use Cardiovascular: Heart regular in rate and rhythm, No murmurs, gallops, or rubs No peripheral edema Abdominal: Soft Nontender, no guarding, rebound or rigidity Abdomen moving with respiration Normoactive bowel sounds No hepatomegaly, No splenomegaly No palpable mass No abdominal wall hernia noted Skin: blood oozing has stopped from the right groin, dry blood noted. no swelling , no echymosis , no tenderrness to palpation , peripheral pulses intact otherwise Normal temperature, tone, texture, turgor Extremities: No digital cyanosis No clubbing Pedal pulses intact and symmetrical Radial pulses intact and symmetrical No calf tenderness Psychiatric: Alert and oriented to person, place and time Appropriate affect fair judgement Neuro Muscles Strength 5/5 in all 4 extremities Sensation to light touch grossly present throughout Cranial nerves II-XII grossly intact No focal sensory deficits Lymphatics: no palpable cervical or supraclavicular , or inguinal lymph nodes Results CBC & Chem 7: 01/20/22 21:59 01/20/22 21:59 Labs: Abnormal Lab Results - Last 24 Hours (Table) 01/20/22 01/20/22 Range/Units 21:59 21:59 RBC 4.17 L (4.30-5.90) m/uL Hgb 12.5 L (13.0-17.5) gm/dL Hct 38.2 L (39.0-53.0) % Carbon Dioxide 20 L (22-30) mmol/L Assessment and Plan Assessment: right groin bleeding from left heart cath access site pressure applied Hgb slight drop of 1 gm from baseline monitor neurovascular bundle peripherally cardiology evaluation monitor Hgb continue plavix chronic conditions hypertension , resume cardiac meds PTSD full code DVT PPX SCDs
[2022-01-21 06:30] VITALS: BP 124/72; PULSE 88; RESP 16
[2022-01-21 06:36] LABS: Basophils % (A) 1 %; Eosinophils # (A) 0.2 k/uL (0-0.7); Eosinophils % (A) 3 %; HCT 37.3 % (39.0-53.0); HGB 12.3 gm/dL (13.0-17.5); Lymphocytes % (A) 15 %; MCH 30.5 pg (25.0-35.0); MCV 92.4 fL (80.0-100.0); Mean Platelet Volume 8.4; Monocytes # (A) 0.4 k/uL (0-1.0); Monocytes % (A) 7 %; Neutrophils # (A) 4.7 k/uL (1.3-7.7); Neutrophils % (A) 73 %; Platelet Count 198 k/uL (150-450); RBC 4.03 m/uL (4.30-5.90); RDW 14.2 % (11.5-15.5); WBC 6.4 k/uL (3.8-10.6)
[2022-01-21] MEDS ORDERED: METOPROLOL TARTRATE 12.5 MG TAB PO SCH (09:00)
[2022-01-21] MEDS ORDERED: buPROPion SR 150 MG TABLET.ER PO SCH (09:00)
[2022-01-21] MEDS ORDERED: ASPIRIN 81 MG PO SCH (09:00)
[2022-01-21] MEDS ORDERED: PANTOPRAZOLE 40 MG/10 ML VIAL IV SCH (09:00)
[2022-01-21] MEDS ORDERED: amLODIPine 5 MG TAB PO SCH (09:00)
[2022-01-21] MEDS ORDERED: LISINOPRIL-HCTZ 20-25 MG 1 EACH TAB PO SCH (09:00)
[2022-01-21] MEDS ORDERED: CLOPIDOGREL 75 MG TAB PO SCH (09:00)
--- NOTE | 2022-01-21 09:33 | CONS ---
CONSULTATION HISTORY OF PRESENT ILLNESS: This is a 76-year-old gentleman who was brought in to the hospital on the for a PCI of a complex calcified dominant RCA. Procedure was uneventful. Post procedure, he had some oozing from the right groin where an Angio-Seal was applied. He was discharged yesterday with a pretty much complete resolution of the oozing. However, he came back to the ER because the oozing persisted. His hemoglobin was stable. It appears that there is a small hematoma anterior to the femoral artery which is the nidus from where he has been oozing. There is no pseudoaneurysm and there is no compromise in the flow based on the ultrasound. FemoStop was applied upon my advise yesterday for 3 hours. This morning he is asymptomatic. The right groin is clean and dry. There is no further oozing. PHYSICAL EXAMINATION: VITAL SIGNS: He is hemodynamically stable 128/70, pulse rate 70 per minute, S1-S2 heard normally. HEART: Short systolic murmur at left sternal border. LUNGS: Clear. ABDOMEN: Exam was unchanged. Right groin is clean and dry without oozing and the pulse is good. EXTREMITIES: Lower extremity exam was unchanged. RECOMMENDATION: This patient is on aspirin and Plavix. I am suggesting that we should give them both today and he can be discharged on the same list of medications that were given yesterday, and I will see him in the office as scheduled on 27 January at 9:45 a.m. Discharge instructions regarding activity, diet, and medications were given. I am suggesting that he should not do too much of climbing the steps or walking too much for the next 48 hours. To call for questions. Patient can be discharged today. MMODL / IJN: [id number] /
--- NOTE | 2022-01-21 17:53 | P.DS ---
Providers Date of admission: 01/20/22 23:20 Expected date of discharge: 01/21/22 Attending physician: Yariel Rosas MD Consults: 01/20/22 23:20 Consult Physician Routine Consulting Provider: Portillo Vaughn Consult Reason/Comments: right groin bleeding Do you want consulting provider notified?: Already Contacted Primary care physician: [facility] Hospital Course: 76 year old male with hypertension , CAD s/p stents patient was discharged today , after a left heart cath and PCI to RCA with 2 stents deployed. at home , he noticed blood oozing off his left heart cath access site over the right groin, his doctor recommended he comes in for evaluation cardiology recommended applying pressure and monitoring . patient denies any pain , numbnesss or cold feeling over right lower extremity , denies any cold or hot sensation. US done showed no evidence of pseudoanurysm patient denies smoking, alcohol or illicit drugs he otherwise feels fine, denies any chest pain , troubl ebreathing , fever, chills, abd pain , nausea or vomiting hemoglobin done in the ED , shows hbg>12 a drop on 1 gm from baseline Cardiology evaluated the patient and cleared the patient for discharge. Patient was seen and examined on January 21, 2022. Patient reported no further episodes of bleeding and was requesting discharge home. General: [non toxic], [no distress], [appears at stated age] Derm: [warm], [dry] Head: [atraumatic], [normocephalic], [symmetric] Eyes: [EOMI], [no lid lag], [anicteric sclera] Mouth: [no lip lesion], [mucus membranes moist] Cardiovascular: [S1S2 reg], [no murmur] Lungs: [CTA bilateral], [no rhonchi, no rales] , [no accessory muscle use] Ext: [no gross muscle atrophy], [no edema], [no contractures] Neuro: [no focal neuro deficits] Psych: [Alert], [oriented], [appropriate affect] Discharge Diagnosis: Right groin bleeding from left heart cath access site CAD Hypertension Pertinent Studies: Arterial duplex Patient Condition at Discharge: Stable Plan - Discharge Summary New Discharge Prescriptions: Continue amLODIPine [Norvasc] 5 mg PO DAILY Lisinopril-Hctz 20-25 mg [Zestoretic 20-25] 1 tab PO DAILY buPROPion HCL [Wellbutrin SR] 150 mg PO BID Aspirin EC [Ecotrin Low Dose] 81 mg PO DAILY Atorvastatin [Lipitor] 80 mg PO HS 60 Days #60 tab Metoprolol Tartrate 12.5 mg PO DAILY Clopidogrel [Plavix] 75 mg PO DAILY 60 Days #60 tab Discharge Medication List Lisinopril-Hctz 20-25 mg [Zestoretic 20-25] 1 tab PO DAILY 06/12/20 [History] amLODIPine [Norvasc] 5 mg PO DAILY 06/12/20 [History] Aspirin EC [Ecotrin Low Dose] 81 mg PO DAILY 12/26/21 [History] buPROPion HCL [Wellbutrin SR] 150 mg PO BID 12/26/21 [History] Atorvastatin [Lipitor] 80 mg PO HS 60 Days #60 tab 12/27/21 [Rx] Clopidogrel [Plavix] 75 mg PO DAILY 60 Days #60 tab 12/27/21 [Rx] Metoprolol Tartrate 12.5 mg PO DAILY 01/16/22 [History] Follow up Appointment(s)/Referral(s): Portillo Vaughn MD [STAFF PHYSICIAN] - 1 Week Nonstaff,Physician [REFERRING] - 1-2 Days Activity/Diet/Wound Care/Special Instructions: Diet: Cardiac Follow up with your PCP within 1-2 days of discharge. Follow up with Cardiology within 1 week of discharge. Take all medications as advised. Come back to the ED or call 911 for worsening groin bleeding, chest pain, shortness of breath, palpitations, lightheadedness. Discharge Disposition: HOME SELF-CARE
[2022-01-21] MEDS ORDERED: ATORVASTATIN 80 MG TAB PO SCH (21:00)
== END 2022-01-21 10:53 | disposition home or self-care (01) ==
LOC: EC 16:57 → 6NMEDSUR 23:20
PROVIDERS: ADMIT Family Medicine; ATTEND Family Medicine
DX: I97.610 Postprocedural hemorrhage of a circulatory system organ or structure following a cardiac catheterization (principal); I10 Essential (primary) hypertension; I25.2 Old myocardial infarction; F43.10 Post-traumatic stress disorder, unspecified; D64.9 Anemia, unspecified; I25.10 Atherosclerotic heart disease of native coronary artery without angina pectoris; Z79.899 Other long term (current) drug therapy; Z79.82 Long term (current) use of aspirin; Z79.02 Long term (current) use of antithrombotics/antiplatelets; Z85.118 Personal history of other malignant neoplasm of bronchus and lung; Z87.891 Personal history of nicotine dependence; Z80.9 Family history of malignant neoplasm, unspecified; Z95.5 Presence of coronary angioplasty implant and graft; Y84.0 Cardiac catheterization as the cause of abnormal reaction of the patient, or of later complication, without mention of misadventure at the time of the procedure
CPT/HCPCS: 96374; 99284; 36415; 80048; 85025 ×2; 85610; 85730; 93975; 93926; G0378 ×2; J2060

== ENCOUNTER 2022-10-02 03:54 | Inpatient (IN) | payer MEDICARE, OTHER ==
[2022-10-02] MEDS ORDERED: PANTOPRAZOLE 40 MG/10 ML VIAL IVP STA (04:46)
[2022-10-02] MEDS ORDERED: SODIUM CHLORIDE 0.9% 1,000 ML IV STA (04:46)
[2022-10-02] MEDS ORDERED: ONDANSETRON 4 MG/2 ML VIAL IVP STA (04:46)
[2022-10-02] MEDS ORDERED: MAG HYDROX/AL HYDROX/SIMETH 30 ML, HYOSCYAMINE ELIXIR 10 ML, LIDOCAINE VISCOUS 2% 10 ML PO STA ×3 (04:46)
[2022-10-02 05:14] LABS: Basophils % (A) 0 %; Eosinophils # (A) 0.3 k/uL (0-0.7); Eosinophils % (A) 2 %; HCT 46.2 % (39.0-53.0); HGB 15.6 gm/dL (13.0-17.5); Lymphocytes # (A) 0.9 k/uL (1.0-4.8); Lymphocytes % (A) 7 %; MCHC 33.9 g/dL (31.0-37.0); MCV 94.4 fL (80.0-100.0); Mean Platelet Volume 8.1; Monocytes # (A) 0.5 k/uL (0-1.0); Monocytes % (A) 4 %; Neutrophils # (A) 11.6 k/uL (1.3-7.7); Neutrophils % (A) 86 %; Platelet Count 237 k/uL (150-450); RBC 4.89 m/uL (4.30-5.90); RDW 13.3 % (11.5-15.5); WBC 13.5 k/uL (3.8-10.6)
[2022-10-02 05:18] LABS: INR 0.9 (<1.2); Partial Thromboplastin Time 22.5 sec (22.0-30.0); Prothrombin Time 10.1 sec (9.0-12.0)
[2022-10-02 05:26] LABS: Appearance,Urine Clear (Clear); Bilirubin,Urine Negative (Negative); Blood,Urine Negative (Negative); Calcium Oxalate Crystals,Urine Few /hpf; Color,Urine Yellow; Glucose,Urine (UA) Negative (Negative); Hyaline Casts,Urine 4 /lpf (0-2); Ketones,Urine Negative (Negative); Leukocyte Esterase,Urine Negative (Negative); Mucus,Urine Moderate /hpf; Nitrite,Urine Negative (Negative); PH, Urine 6.5 (5.0-8.0); Protein,Urine 1+ (Negative); RBC,Urine <1 /hpf (0-5); Specific Gravity,Urine 1.021 (1.001-1.035); Squamous Epithelial Cell,Urine <1 /hpf (0-4); WBC,Urine 2 /hpf (0-5)
[2022-10-02 05:29] LABS: Albumin 4.7 g/dL (3.5-5.0)
[2022-10-02 05:52] LABS: Calcium 10.7 mg/dL (8.4-10.2); Potassium 4.2 mmol/L (3.5-5.1); Total Bilirubin 0.8 mg/dL (0.2-1.3); Total Protein 7.2 g/dL (6.3-8.2)
--- NOTE | 2022-10-02 05:56 | ED ---
General Adult HPI - General Chief complaint: Abdominal Pain Stated complaint: abd pain Time Seen by Provider: 10/02/22 04:31 Source: patient, RN notes reviewed, old records reviewed Mode of arrival: ambulatory Limitations: no limitations - History of Present Illness Initial comments: Patient is a 76-year-old male with past medical history remarkable for CAD with multiple stents, lung cancer, who presents emergency Department complaining of epigastric abdominal pain. States it started shortly after he ate dinner yesterday. States he had hotdogs, as well as potato salad. No acidic food. Began having epigastric abdominal pain shortly afterwards. Feels nauseous. No episodes of emesis. Denies any diarrhea or constipation. Denies any urinary c omplaints at this time. Denies any shortness of breath but does have some chest pain that radiates up substernally and is a burning sensation towards his throat. His poor time describing the abdominal pain itself, states it is achy and uncomfortable. Denies any other acute complaints. No known palliative or provocative factors. Presents for further evaluation at this time. - Related Data Home Medications Medication Instructions Recorded Confirmed Lisinopril-Hctz 20-25 mg 1 tab PO DAILY 06/12/20 01/20/22 [Zestoretic 20-25] amLODIPine [Norvasc] 5 mg PO DAILY 06/12/20 01/20/22 Aspirin EC [Ecotrin Low Dose] 81 mg PO DAILY 12/26/21 01/20/22 buPROPion HCL [Wellbutrin SR] 150 mg PO BID 12/26/21 01/20/22 Metoprolol Tartrate 12.5 mg PO DAILY 01/16/22 01/20/22 Previous Rx's Medication Instructions Recorded Atorvastatin [Lipitor] 80 mg PO HS 60 Days #60 tab 12/27/21 Clopidogrel [Plavix] 75 mg PO DAILY 60 Days #60 tab 12/27/21 Allergies Allergy/AdvReac Type Severity Reaction Status Date / Time No Known Allergies Allergy Verified 10/02/22 04:04 Review of Systems ROS Statement: Those systems with pertinent positive or pertinent negative responses have been documented in the HPI. Review of Systems: CONST: Denies fever EYES: Denies blurry vision ENT: Denies nasal congestion C/V: Denies Chest pain RESP: Denies shortness of breath GI: Endorses abdominal pain : Denies dysuria SKIN: Denies rash. MSK: Denies joint pain. NEURO: Denies headache ROS Other: All systems not noted in ROS Statement are negative. Past Medical History Past Medical History: Hypertension, Myocardial Infarction ([place]) Additional Past Medical History / Comment(s): Lung CA right upper lung History of Any Multi-Drug Resistant Organisms: None Reported Past Surgical History: Heart Catheterization With Stent, Hernia Repair Additional Past Surgical History / Comment(s): carotid left Past Anesthesia/Blood Transfusion Reactions: No Reported Reaction Past Psychological History: PTSD Smoking Status: Former smoker Past Alcohol Use History: Occasional Past Drug Use History: None Reported - Past Family History Father Family Medical History: No Reported History Additional Family Medical History / Comment(s): Father was healthy. Mother Family Medical History: No Reported History Additional Family Medical History / Comment(s): Mother was healthy. Brother(s) Family Medical History: Cancer General Exam - General Exam Comments Initial Comments: General: Appears in no acute distress. HEAD: Normal with no signs of head trauma. EYES: PERRLA, EOMI, conjunctiva normal, no discharge. ENT: Hearing grossly intact, normal oropharynx. RESPIRATORY: Clear breath sounds bilaterally. No wheezes, rales, or rhonchi. C/V: Regular rate and rhythm. S1 and S2 auscultated, no edema, peripheral pulses 2+ and intact throughout ABD: Abdomen is soft, nondistended. Mildly tender to palpation epigastrium. No guarding. No rebound tenderness. No peritoneal signs. EXT: Normal range of motion, no obvious deformity SKIN: No rashes or lesions observed on exposed skin. NEURO: Alert and oriented 4. Limitations: no limitations Course Vital Signs 10/02/22 04:04 Temperature 97.8 F Pulse Rate 82 Respiratory 18 Rate Blood Pressure 123/84 O2 Sat by Pulse 98 Oximetry Medical Decision Making - Medical Decision Making Was pt. sent in by a medical professional or institution (, PA, MEDICAL PARASITOLOGIST, urgent care, hospital, or [facility]...) When possible be specific @ -No Did you speak to anyone other than the patient for history (EMS, parent, family, police, friend...)? What history was obtained from this source @ -No Did you review nursing and triage notes (agree or disagree)? Why? @ -I reviewed and agree with nursing and triage notes Were old charts reviewed (outside hosp., previous admission, EMS record, old EKG, old radiological studies, urgent care reports/EKG's, ch[facility] records)? Report findings @ -Old chart reviewed from January 2022 including EKG Differential Diagnosis (chest pain, altered mental status, abdominal pain women, abdominal pain men, vaginal bleeding, weakness, fever, dyspnea, syncope, headache, dizziness, GI bleed, back pain, seizure, CVA, palpatations, mental health, musculoskeletal)? @ -Differential Abdominal Pain Men: Appendicitis, cholecystitis, diverticulosis, ischemic bowel, pancreatitis, hepatitis, UTI, gastroenteritis, AAA, incarcerated hernia, bowel obstruction, constipation, inflammatory bowel, hepatitis, peptic ulcer disease, splenic infarction, perforated viscus, testicular torsion, this is not meant to be an all-inclusive list EKG interpreted by me (3pts min.). @ -As above X-rays interpreted by me (1pt min.). @ -Chest x-ray shows no acute cardio pulmonary process. CT interpreted by me (1pt min.). @ -CT abdomen and pelvis reveals findings concerning for ileus versus areas of partial bowel obstructions with multilevel adhesions. There is also a distended stomach with air-fluid levels noted. U/S interpreted by me (1pt. min.). @ -None done What testing was considered but not performed or refused? (CT, X-rays, U/S, labs)? Why? @ -None What meds were considered but not given or refused? Why? @ -Offered morphine, however patient declines at this time. Did you discuss the management of the patient with other professionals (professionals i.e. , PA, MEDICAL PARASITOLOGIST, lab, RT, psych nurse, social director, resource manager, teacher, human resources officer, trimming caser)? Give summary @ -Discussed the case with Dr. Lopez, who accepted the admission but requested that I place under Dr. Franklin who is assuming care for the weekend. Was in agreement with the plan. Was smoking cessation discussed for >3mins.? @ -No Was critical care preformed (if so, how long)? @ -No Were there social determinants of health that impacted care today? How? (Homelessness, low income, unemployed, alcoholism, drug addiction, transportation, low edu. Level, literacy, decrease access to med. care, chcf, rehab)? @ -No Was there de-escalation of care discussed even if they declined (Discuss DNR or withdrawal of care, Hospice)? DNR status @ -No What co-morbidities impacted this encounter? (DM, HTN, Smoking, COPD, CAD, Cancer, CVA, ARF, Chemo, Hep., AIDS, mental health diagnosis, sleep apnea, morbid obesity)? @ -None Was patient admitted / discharged? Hospital course, mention meds given and route, prescriptions, significant lab abnormalities, going to OR and other pertinent info. @ -Based on patient's presentation and physical exam, I'm concerned for intra- abdominal process for current symptoms. Cannot rule out atypical ACS presentation. We will obtain abdominal laboratory studies, as well as start with an upright chest x-ray, screening EKG. He was in agreement with this plan. Patient treated with IV fluids, IV Protonix, Zofran, and a GI cocktail. Patient was in agreement this plan. EKG showed no signs of acute ischemia. Laboratory studies are remarkable for mild leukocytosis of 13.5. Lactic acid is within acceptable limits. Troponin undetectable. Remainder of the labs are within acceptable limits.Chest x-ray reveals no obvious process. On reevaluation, patient is still uncomfortable. His belching. We will obtain CT abdomen and pelvis at this time. He was in agreement this plan. He'll be administered additional medications. Declines morphine at this time. CT shows findings concerning for partial bowel obstruction. Patient is still having pain. As he is symptomatic with the partial bowel obstruction, we will admit the patient for this. Patient was in agreement this plan. I did speak with Dr. Lopez who accepted the admission. NG tube was placed. Patient was placed on empiric Zosyn. He is nothing by mouth, on maintenance fluids at this time. Will be admitted in stable condition. Undiagnosed new problem with uncertain prognosis? @ -No Drug Therapy requiring intensive monitoring for toxicity (Heparin, Nitro, Insulin, Cardizem)? @ -No Were any procedures done? @ -No. Diagnosis/symptom? @ -Abdominal pain, partial small bowel obstruction Acute, or Chronic, or Acute on Chronic? @ -Acute Uncomplicated (without systemic symptoms) or Complicated (systemic symptoms)? @ -complicated Side effects of treatment? @ -none Exacerbation, Progression, or Severe Exacerbation] @ -no Poses a threat to life or bodily function? @ -Potentially - Lab Data Result diagrams: 10/02/22 04:47 10/02/22 04:47 Lab Results 10/02/22 10/02/22 10/02/22 Range/Units 04:47 04:47 04:47 WBC 13.5 H (3.8-10.6) k/uL RBC 4.89 (4.30-5.90) m/uL Hgb 15.6 (13.0-17.5) gm/dL Hct 46.2 (39.0-53.0) % MCV 94.4 (80.0-100.0) fL MCH 32.0 (25.0-35.0) pg MCHC 33.9 (31.0-37.0) g/dL RDW 13.3 (11.5-15.5) % Plt Count 237 (150-450) k/uL MPV 8.1 Neutrophils % 86 % Lymphocytes % 7 % Monocytes % 4 % Eosinophils % 2 % Basophils % 0 % Neutrophils # 11.6 H (1.3-7.7) k/uL Lymphocytes # 0.9 L (1.0-4.8) k/uL Monocytes # 0.5 (0-1.0) k/uL Eosinophils # 0.3 (0-0.7) k/uL Basophils # 0.0 (0-0.2) k/uL PT 10.1 (9.0-12.0) sec INR 0.9 (<1.2) APTT 22.5 (22.0-30.0) sec Sodium 140 (137-145) mmol/L Potassium 4.2 (3.5-5.1) mmol/L Chloride 102 (98-107) mmol/L Carbon Dioxide 26 (22-30) mmol/L Anion Gap 12 mmol/L BUN 21 H (9-20) mg/dL Creatinine 1.08 (0.66-1.25) mg/dL Est GFR (CKD-EPI)AfAm 78 (>60 ml/min/1.73 sqM) Est GFR (CKD-EPI)NonAf 67 (>60 ml/min/1.73 sqM) Glucose 123 H (74-99) mg/dL Plasma Lactic Acid Oral (0.7-2.0) mmol/L Calcium 10.7 H (8.4-10.2) mg/dL Total Bilirubin 0.8 (0.2-1.3) mg/dL AST 26 (17-59) U/L ALT 41 (4-49) U/L Alkaline Phosphatase 51 (38-126) U/L Troponin I (0.000-0.034) ng/mL Total Protein 7.2 (6.3-8.2) g/dL Albumin 4.7 (3.5-5.0) g/dL Amylase 76 (30-110) U/L Lipase 53 (23-300) U/L Urine Color Urine Appearance (Clear) Urine pH (5.0-8.0) Ur Specific Moore (1.001-1.035) Urine Protein (Negative) Urine Glucose (UA) (Negative) Urine Ketones (Negative) Urine Blood (Negative) Urine Nitrite (Negative) Urine Bilirubin (Negative) Urine Urobilinogen (<2.0) mg/dL Ur Leukocyte Esterase (Negative) Urine RBC (0-5) /hpf Urine WBC (0-5) /hpf Ur Squamous Epith Cells (0-4) /hpf Calcium Oxalate Crystal (None) /hpf Hyaline Casts (0-2) /lpf Urine Mucus (None) /hpf 10/02/22 10/02/22 10/02/22 Range/Units 04:47 04:47 04:47 WBC (3.8-10.6) k/uL RBC (4.30-5.90) m/uL Hgb (13.0-17.5) gm/dL Hct (39.0-53.0) % MCV (80.0-100.0) fL MCH (25.0-35.0) pg MCHC (31.0-37.0) g/dL RDW (11.5-15.5) % Plt Count (150-450) k/uL MPV Neutrophils % % Lymphocytes % % Monocytes % % Eosinophils % % Basophils % % Neutrophils # (1.3-7.7) k/uL Lymphocytes # (1.0-4.8) k/uL Monocytes # (0-1.0) k/uL Eosinophils # (0-0.7) k/uL Basophils # (0-0.2) k/uL PT (9.0-12.0) sec INR (<1.2) APTT (22.0-30.0) sec Sodium (137-145) mmol/L Potassium (3.5-5.1) mmol/L Chloride (98-107) mmol/L Carbon Dioxide (22-30) mmol/L Anion Gap mmol/L BUN (9-20) mg/dL Creatinine (0.66-1.25) mg/dL Est GFR (CKD-EPI)AfAm (>60 ml/min/1.73 sqM) Est GFR (CKD-EPI)NonAf (>60 ml/min/1.73 sqM) Glucose (74-99) mg/dL Plasma Lactic Acid Oral 1.1 (0.7-2.0) mmol/L Calcium (8.4-10.2) mg/dL Total Bilirubin (0.2-1.3) mg/dL AST (17-59) U/L ALT (4-49) U/L Alkaline Phosphatase (38-126) U/L Troponin I <0.012 (0.000-0.034) ng/mL Total Protein (6.3-8.2) g/dL Albumin (3.5-5.0) g/dL Amylase (30-110) U/L Lipase (23-300) U/L Urine Color Yellow Urine Appearance Clear (Clear) Urine pH 6.5 (5.0-8.0) Ur Specific Moore 1.021 (1.001-1.035) Urine Protein 1+ H (Negative) Urine Glucose (UA) Negative (Negative) Urine Ketones Negative (Negative) Urine Blood Negative (Negative) Urine Nitrite Negative (Negative) Urine Bilirubin Negative (Negative) Urine Urobilinogen 3.0 (<2.0) mg/dL Ur Leukocyte Esterase Negative (Negative) Urine RBC <1 (0-5) /hpf Urine WBC 2 (0-5) /hpf Ur Squamous Epith Cells <1 (0-4) /hpf Calcium Oxalate Crystal Few H (None) /hpf Hyaline Casts 4 H (0-2) /lpf Urine Mucus Moderate H (None) /hpf - EKG Data -: EKG Interpreted by Me EKG Comments: 12-lead Electrocardiogram Interpretation Note EKG was reviewed and interpreted by myself. 12-lead ECG performed at 0429 is interpreted by me as revealing normal sinus rhythm at a rate of 75 beats per minute. [place] is normal. NE interval is 184 ms, QRS duration is 87 ms, QTc is 395 ms.. There were no ST or T wave abnormalities to suggest myocardial ischemia or injury. R wave progression across the precordium was satisfactory. By my interpretation this EKG is non-diagnostic for acute ischemia. Disposition Clinical Impression: Partial small bowel obstruction, Intractable abdominal pain Disposition: ADMITTED IP TO THIS HOSP Condition: Stable Referrals: [facility],Clinic [Primary Care Provider] - 1-2 days Time of Disposition: 07:00
[2022-10-02] MEDS ORDERED: FAMOTIDINE 20 MG/2 ML VIAL IV STA (06:07)
--- NOTE | 2022-10-02 06:08 | XR ---
EXAMINATION TYPE: XR chest 2V DATE OF EXAM: 10/02/2022 COMPARISON: Chest x-ray December 26, 2021 HISTORY: Chest and abdominal pain with nausea and vomiting. TECHNIQUE: Frontal and lateral views of the chest are obtained. FINDINGS: Elevated right hemidiaphragm redemonstrated. There is no focal air space opacity, pleural e ffusion, or pneumothorax seen. The cardiac silhouette size is stable and within normal limits. The osseous structures are intact. IMPRESSION: No acute cardiopulmonary process. No significant change from prior.
[2022-10-02] MEDS ORDERED: METOCLOPRAMIDE 5 MG/ML 2 ML VIAL IVP STA (06:14)
--- NOTE | 2022-10-02 07:03 | CT ---
EXAMINATION TYPE: CT abdomen pelvis w con DATE OF EXAM: 10/02/2022 COMPARISON: PET/CT July 25, 2021 HISTORY: pain not Further specified CT DLP: 1194.9 mGycm, Automated Exposure Control for Dose Reduction was Utilized. CONTRAST: CT scan of the abdomen and pelvis is performed with oral and with IV Contrast, patient injected with 100 mL of Isovue 300. FINDINGS: LUNG BASES: Mild linear scarring lateral right lung base. Coronary artery calcification and/or stents are redemonstrated. LIVER/GB: Liver isodense to slightly hypodense relative to spleen consistent with mild diffuse fatty infiltration. PANCREAS: No significant abnormality is seen. SPLEEN: No significant abnormality is seen. ADRENALS: No significant abnormality is seen. KIDNEYS: There are 2 right renal arteries which is normal variant. BOWEL: Slightly dilated fluid-filled distal esophagus. Mildly dilated stomach with air-fluid level. N o suspicious dilatation of the duodenal sweep. Prominent fluid-filled small bowel loops with air-flui d levels. Some are abnormally dilated up to 3.4 cm. Diverticula in the distal colon. No CT evidence f or acute diverticulitis. Fluid-filled slightly prominent right colon. Fluid-filled terminal ileum. Tr ansition point near the hepatic flexure shows no obvious abnormality. Single nonprominent small bowel loop in the right lower quadrant centrally. No free air. PROSTATE/SEMINAL VESICLES: Mildly enlarged prostate gland consistent with BPH. LYMPH NODES: No greater than 1cm abdominal or pelvic lymph nodes are appreciated. OSSEOUS STRUCTURES: Straightening of the lumbar spine is seen. [id number] disc space narrowing with vacuum disc phenomenon at L4-L5 level. Multilevel facet arthropathy in the lumbar spine. OTHER: Moderate calcified plaque of the aorta extends into branch vessels. Small fat-containing bilat eral inguinal hernias. IMPRESSION: Overall nonspecific bowel gas pattern. Possible ileus versus areas of partial bowel obstr uction. Consider multilevel adhesions. No free air. Distal colonic diverticulosis without CT evidence for acute diverticulitis. Mildly distended stomach with air-fluid level noted.
[2022-10-02] MEDS ORDERED: ONDANSETRON 4 MG/2 ML VIAL IVP PRN (07:52)
[2022-10-02] MEDS ORDERED: NALOXONE 0.4 MG/ML 1 ML VIAL IV PRN (07:52)
[2022-10-02] MEDS ORDERED: MORPHINE SULFATE 2 MG/ML SYRINGE IVP PRN (07:54)
[2022-10-02] MEDS: PIPERACILLIN-TAZOBACTAM 3.375 GM in SODIUM CHLORIDE 0.9% 100 ML IVPB SCH ×3 (08:49→23:56)
[2022-10-02] MEDS: SODIUM CHLORIDE 0.9% 1,000 ML IV SCH ×2 (08:49→17:31)
[2022-10-02] MEDS: HEPARIN SODIUM,PORCINE/PF 5,000 UNIT/0.5 ML SYRINGE SQ SCH ×3 (08:50→23:56)
--- NOTE | 2022-10-02 10:06 | XR ---
EXAMINATION TYPE: XR chest 1V confirm line [facility] DATE OF EXAM: 10/02/2022 COMPARISON: 10/02/2022 INDICATION: Line placement TECHNIQUE: Single frontal view of the chest is obtained. FINDINGS: The heart size is normal. The pulmonary vasculature is normal. The lungs are clear. There is mild elevation of the right diaphragm. There is a nasogastric tube present with the tip in the proximal left upper quadrant of the abdomen. IMPRESSION: 1. No acute pulmonary process. 2. Nasogastric tube tip within the left upper quadrant abdomen.
--- NOTE | 2022-10-02 13:26 | P.GSHP ---
History of Present Illness H&P Date: 10/02/22 CHIEF COMPLAINT: Abdominal pain HISTORY OF PRESENT ILLNESS: This is a 76-year-old male with a past surgical history of umbilical hernia repair. He has a history of coronary artery disease with cardiac stents on Plavix and history of lung cancer. Patient reports yesterday evening he had sudden onset of epigastric abdominal pain with nausea. Patient reports that he has been having diarrhea and flatus. No prior history of bowel obstruction. He had a computed tomography scan abdomen and pelvis with oral and IV contrast had shown evidence of ileus versus partial small bowel obstruction. And mildly distended stomach. NG tube was placed in the ER. He's had 350 mL bilious output. Patient reports that he continues to have flatus and diarrhea. Pain is now resolved. Surgical service consulted in regards to small bowel obstruction. Patient seen and examined with Dr. carlin PAST MEDICAL HISTORY: Hypertension, coronary disease with cardiac stent, lung cancer right upper lung, carotid artery stenosis status post surgery PAST SURGICAL HISTORY: See below MEDICATIONS: See below ALLERGIES: See below SOCIAL HISTORY: No illicit drug use. REVIEW OF SYSTEMS: CONSTITUTIONAL: Denies fever or chills. HEENT: Denies blurred vision, vision changes, or eye pain. Denies hemoptysis CARDIOVASCULAR: Denies chest pain or pressure. RESPIRATORY: No shortness of breath. GASTROINTESTINAL: See HPI for pertinent findings HEMATOLOGIC: Denies bleeding disorders. GENITOURINARY: Denies any blood in urine or increased urinary frequency. SKIN: Denies pruitis. Denies rash. PHYSICAL EXAM: VITAL SIGNS: Reviewed GENERAL: Well-developed in no acute distress. HEENT: No sclera icterus. Extraocular movements grossly intact. Moist buccal mucosa. Head is atraumatic, normocephalic. No nasal drainage. ABDOMEN: Soft. Mildly distended. Nontender NEUROLOGIC: Alert and oriented. Cranial nerves II through XII grossly intact. LABORATORY DATA: WBC 13.5 Hgb 15.6 platelets 237 Sodium is 140 potassium is 4.2 creatinine 1.08 Lactic acid 1.1 LFTs normal lipase 53 Urinalysis negative for infection IMAGING: computed tomography scan abdomen and pelvis overall nonspecific bowel gas pattern. Possible ileus versus partial small bowel obstruction. Consider multilevel adhesions. No free air. Distal colonic diverticulosis without CT evidence of acute diverticulitis. Mildly distended stomach with air-fluid level noted. ASSESSMENT: 1. Ileus versus partial small bowel obstruction improving. PLAN: -Discontinue NG tube -Start clear liquid diet -Encourage patient to ambulate -Continue supportive care -Continue IV fluids -GI prophylaxis Protonix and DVT prophylaxis subcu heparin Physician Direct Sales Professional note has been reviewed by physician. Signing provider agrees with the documented findings, assessment, and plan of care. Past Medical History Past Medical History: Hypertension, Myocardial Infarction ([place]) Additional Past Medical History / Comment(s): Lung CA right upper lung History of Any Multi-Drug Resistant Organisms: None Reported Past Surgical History: Heart Catheterization With Stent, Hernia Repair Additional Past Surgical History / Comment(s): carotid left Past Anesthesia/Blood Transfusion Reactions: No Reported Reaction Past Psychological History: PTSD Smoking Status: Former smoker Past Alcohol Use History: Occasional Past Drug Use History: None Reported - Past Family History Father Family Medical History: No Reported History Additional Family Medical History / Comment(s): Father was healthy. Mother Family Medical History: No Reported History Additional Family Medical History / Comment(s): Mother was healthy. Brother(s) Family Medical History: Cancer Medications and Allergies Home Medications Medication Instructions Recorded Confirmed Type Lisinopril-Hctz 20-25 mg 1 tab PO DAILY 06/12/20 10/02/22 History [Zestoretic 20-25] amLODIPine [Norvasc] 5 mg PO DAILY 06/12/20 10/02/22 History Aspirin EC [Ecotrin Low Dose] 81 mg PO DAILY 12/26/21 10/02/22 History buPROPion HCL [Wellbutrin SR] 150 mg PO BID 12/26/21 10/02/22 History Atorvastatin [Lipitor] 80 mg PO HS 60 Days #60 tab 12/27/21 10/02/22 Rx Clopidogrel [Plavix] 75 mg PO DAILY 60 Days #60 tab 12/27/21 10/02/22 Rx Metoprolol Tartrate 12.5 mg PO DAILY 01/16/22 10/02/22 History Allergies Allergy/AdvReac Type Severity Reaction Status Date / Time No Known Allergies Allergy Verified 10/02/22 08:27 Surgical - Exam Vital Signs Temp Pulse Resp BP Pulse Ox 97.8 F 82 18 123/84 98 10/02/22 04:04 10/02/22 04:04 10/02/22 04:04 10/02/22 04:04 10/02/22 04:04 Results - Labs 10/02/22 04:47 10/02/22 04:47 Abnormal Lab Results - Last 24 Hours (Table) 10/02/22 10/02/22 10/02/22 Range/Units 04:47 04:47 04:47 WBC 13.5 H (3.8-10.6) k/uL Neutrophils # 11.6 H (1.3-7.7) k/uL Lymphocytes # 0.9 L (1.0-4.8) k/uL BUN 21 H (9-20) mg/dL Glucose 123 H (74-99) mg/dL Calcium 10.7 H (8.4-10.2) mg/dL Urine Protein 1+ H (Negative) Calcium Oxalate Crystal Few H (None) /hpf Hyaline Casts 4 H (0-2) /lpf Urine Mucus Moderate H (None) /hpf Diabetes panel 10/02/22 Range/Units 04:47 Sodium 140 (137-145) mmol/L Potassium 4.2 (3.5-5.1) mmol/L Chloride 102 (98-107) mmol/L Carbon Dioxide 26 (22-30) mmol/L BUN 21 H (9-20) mg/dL Creatinine 1.08 (0.66-1.25) mg/dL Glucose 123 H (74-99) mg/dL Calcium 10.7 H (8.4-10.2) mg/dL AST 26 (17-59) U/L ALT 41 (4-49) U/L Alkaline Phosphatase 51 (38-126) U/L Total Protein 7.2 (6.3-8.2) g/dL Albumin 4.7 (3.5-5.0) g/dL Calcium panel 10/02/22 Range/Units 04:47 Calcium 10.7 H (8.4-10.2) mg/dL Albumin 4.7 (3.5-5.0) g/dL Pituitary panel 10/02/22 Range/Units 04:47 Sodium 140 (137-145) mmol/L Potassium 4.2 (3.5-5.1) mmol/L Chloride 102 (98-107) mmol/L Carbon Dioxide 26 (22-30) mmol/L BUN 21 H (9-20) mg/dL Creatinine 1.08 (0.66-1.25) mg/dL Glucose 123 H (74-99) mg/dL Calcium 10.7 H (8.4-10.2) mg/dL Adrenal panel 10/02/22 Range/Units 04:47 Sodium 140 (137-145) mmol/L Potassium 4.2 (3.5-5.1) mmol/L Chloride 102 (98-107) mmol/L Carbon Dioxide 26 (22-30) mmol/L BUN 21 H (9-20) mg/dL Creatinine 1.08 (0.66-1.25) mg/dL Glucose 123 H (74-99) mg/dL Calcium 10.7 H (8.4-10.2) mg/dL Total Bilirubin 0.8 (0.2-1.3) mg/dL AST 26 (17-59) U/L ALT 41 (4-49) U/L Alkaline Phosphatase 51 (38-126) U/L Total Protein 7.2 (6.3-8.2) g/dL Albumin 4.7 (3.5-5.0) g/dL
[2022-10-02] MEDS ORDERED: ASPIRIN 81 MG PO STA (17:25)
[2022-10-02] MEDS ORDERED: CLOPIDOGREL 75 MG TAB PO STA (17:26)
--- NOTE | 2022-10-02 18:21 | P.CONS ---
History of Present Illness - Reason for Consult Consult date: 10/02/22 - Chief Complaint abdominal pain, n/v - History of Present Illness 76-year-old man with medical history of CAD status post stents with most recent stent in October 2021, hypertension, hyperlipidemia, abdominal hernia repair presented for evaluation of abdominal pain, nausea, vomiting. Patient says his pain started at 5:30 yesterday and was sudden onset. She has never had pain of this nature before, felt sharp, stabbing in nature. It was also associated with nausea, vomiting, and therefore he presented to the emergency room for further evaluation. Gen. surgery evaluated the patient and determined patient had a partial small bowel obstruction and therefore placed NG tube, however, patient q uickly improved with passing of flatus and resolution of abdominal pain, therefore NG tube was pulled. Patient was subsequently advanced to a clear liquid diet. Patient was admitted to the surgery service for further management, and medicine was consulted for medical management. Upon my evaluation, patient was afebrile, 151/80, heart rate 76, 95% on room air. CBC demonstrated leukocytosis to 13.5. Basic metabolic panel demonstrated elevated BUN at 21, creatinine of 1.08. Calcium was 10.7. Liver function tests showed albumin of 4.7, total protein of 7.2. Amylase was 76, lipase was 53. UA showed 1+ protein, few calcium oxalate crystals, 4 hyaline casts. Initial chest x-ray in the emergency room demonstrated clear parenchyma bilaterally with what appears to be scar tissue on the right hilar area, stable from priors when compared to 12/26/2021. CT of the abdomen/pelvis demonstrated partial small bowel obstruction versus ileus. EKG demonstrated normal sinus rhythm, with normal axis. Repeat chest x-ray demonstrated appropriate position of NG tube. All Systems reviewed and pertinent positives and negatives noted in HPI, all other symptoms are negative Gen: in no apparent distress, resting comfortably in bed Eyes: PERRL, no scleral injection or icterus HENT: normocephalic, atraumatic, good hearing acuity, moist mucous membranes Neck: no tracheal deviation, full range of motion Resp: good air exchange, breathing comfortably with no accessory muscle use, no tactile fremitus CVS: good distal perfusion x 4, no pitting edema GI: soft, NTTP, ND, no hepatosplenomegaly : no suprapubic tenderness, no CVAT, boykin catheter not present MSK: no clubbing, no cyanosis, no noted contractures of extremities Skin: no noted rashes, petechiae; temperature of skin is appropriate Neuro: moving all extremities without signs of weakness, CN II-XII intact Psych: cooperative, euthymic mood, insight and judgment intact Assessment: Partial small bowel obstruction Hypertension Hyperlipidemia History of abdominal hernia repair History of CAD Plan: Vital signs reviewed and noted in HPI Lab work reviewed and noted in HPI Chest x-rays and EKG were personally interpreted as noted in HPI CT of the abdomen/pelvis read was reviewed and noted in HPI Gen. surgery note was reviewed, they recommend discontinuing NG tube, advance to clear liquid diet and monitoring patient overnight. Agree with Zosyn 3.375 g every 8 hours, low threshold to de-escalate as patient has improved quickly Agree with normal saline at 100 mL per hour Agree with morphine 2 mg IV every 4 hours when necessary Resume aspirin 81 mg, Plavix 75 mg daily Resume Lipitor 80 mg daily at bedtime Resume amlodipine 5 mg daily, metoprolol 12.5 mg daily Patient is full code Past Medical History Past Medical History: Hypertension, Myocardial Infarction ([place]) Additional Past Medical History / Comment(s): Lung CA right upper lung Last Myocardial Infarction Date:: 10/2021 History of Any Multi-Drug Resistant Organisms: None Reported Past Surgical History: Heart Catheterization With Stent, Hernia Repair Additional Past Surgical History / Comment(s): carotid left, right upper lung lobectomy Past Anesthesia/Blood Transfusion Reactions: No Reported Reaction Date of Last Stent Placement:: 10/2021 Past Psychological History: PTSD Additional Psychological History / Comment(s): Pt resides with his spouse. He is independent. Smoking Status: Former smoker Past Alcohol Use History: Occasional Additional Past Alcohol Use History / Comment(s): Pt started smoking as a teen and quit in 2006. Past Drug Use History: None Reported - Past Family History Father Family Medical History: No Reported History Additional Family Medical History / Comment(s): Father was healthy. Mother Family Medical History: No Reported History Additional Family Medical History / Comment(s): Mother was healthy. Brother(s) Family Medical History: Cancer Medications and Allergies Home Medications Medication Instructions Recorded Confirmed Type Lisinopril-Hctz 20-25 mg 1 tab PO DAILY 06/12/20 10/02/22 History [Zestoretic 20-] amLODIPine [Norvasc] 5 mg PO DAILY 06/12/20 10/02/22 History Aspirin EC [Ecotrin Low Dose] 81 mg PO DAILY 12/26/21 10/02/22 History buPROPion HCL [Wellbutrin SR] 150 mg PO BID 12/26/21 10/02/22 History Atorvastatin [Lipitor] 80 mg PO HS 60 Days #60 tab 12/27/21 10/02/22 Rx Clopidogrel [Plavix] 75 mg PO DAILY 60 Days #60 tab 12/27/21 10/02/22 Rx Metoprolol Tartrate 12.5 mg PO DAILY 01/16/22 10/02/22 History Allergies Allergy/AdvReac Type Severity Reaction Status Date / Time No Known Allergies Allergy Verified 10/02/22 08:27 Physical Exam Osteopathic Statement: *. No significant issues noted on an osteopathic structural exam other than those noted in the History and Physical/Consult. Vitals: Vital Signs Temp Pulse Pulse Resp BP BP Pulse Ox 10/02/22 16:54 98.3 F 76 18 151/80 95 10/02/22 15:45 78 18 121/71 94 L 10/02/22 14:36 82 18 153/88 95 10/02/22 14:14 64 18 98 10/02/22 12:23 72 18 10/02/22 11:34 70 18 130/74 98 10/02/22 10:26 68 18 135/77 95 10/02/22 08:18 76 18 102/72 95 10/02/22 04:04 97.8 F 82 18 123/84 98 Intake and Output 10/02/22 10/02/22 10/02/22 06:59 14:59 22:59 Other: # Voids 1 Weight 85.729 kg 85.729 kg Results CBC & Chem 7: 10/02/22 04:47 10/02/22 04:47 Labs: Abnormal Lab Results - Last 24 Hours (Table) 10/02/22 10/02/22 10/02/22 Range/Units 04:47 04:47 04:47 WBC 13.5 H (3.8-10.6) k/uL Neutrophils # 11.6 H (1.3-7.7) k/uL Lymphocytes # 0.9 L (1.0-4.8) k/uL BUN 21 H (9-20) mg/dL Glucose 123 H (74-99) mg/dL Calcium 10.7 H (8.4-10.2) mg/dL Urine Protein 1+ H (Negative) Calcium Oxalate Crystal Few H (None) /hpf Hyaline Casts 4 H (0-2) /lpf Urine Mucus Moderate H (None) /hpf
[2022-10-02] MEDS: buPROPion SR 150 MG TABLET.ER PO SCH (20:30)
[2022-10-02] MEDS: ATORVASTATIN 80 MG TAB PO SCH (20:30)
[2022-10-03] MEDS: SODIUM CHLORIDE 0.9% 1,000 ML IV SCH ×3 (06:31→23:19)
[2022-10-03] MEDS: amLODIPine 5 MG TAB PO SCH (07:56)
[2022-10-03] MEDS: HEPARIN SODIUM,PORCINE/PF 5,000 UNIT/0.5 ML SYRINGE SQ SCH ×4 (07:56→23:20)
[2022-10-03] MEDS: ASPIRIN 81 MG PO SCH (07:56)
[2022-10-03] MEDS: CLOPIDOGREL 75 MG TAB PO SCH (07:56)
[2022-10-03] MEDS: METOPROLOL TARTRATE 12.5 MG TAB PO SCH (07:56)
[2022-10-03] MEDS: buPROPion SR 150 MG TABLET.ER PO SCH ×2 (07:57→20:00)
[2022-10-03] MEDS: LISINOPRIL-HCTZ 20-25 MG 1 EACH TAB PO SCH (07:57)
[2022-10-03] MEDS: PIPERACILLIN-TAZOBACTAM 3.375 GM in SODIUM CHLORIDE 0.9% 100 ML IVPB SCH (07:57)
[2022-10-03 08:26] LABS: Basophils % (A) 0 %; Eosinophils # (A) 0.3 k/uL (0-0.7); Eosinophils % (A) 5 %; HCT 44.1 % (39.0-53.0); HGB 14.4 gm/dL (13.0-17.5); Lymphocytes # (A) 1.1 k/uL (1.0-4.8); Lymphocytes % (A) 19 %; MCH 32.1 pg (25.0-35.0); MCHC 32.8 g/dL (31.0-37.0); MCV 98.1 fL (80.0-100.0); Mean Platelet Volume 8.3; Monocytes # (A) 0.3 k/uL (0-1.0); Monocytes % (A) 5 %; Neutrophils % (A) 70 %; Platelet Count 225 k/uL (150-450); RBC 4.49 m/uL (4.30-5.90); RDW 13.3 % (11.5-15.5); WBC 5.8 k/uL (3.8-10.6)
[2022-10-03 08:36] LABS: African American GFR (CKD) >90 (>60 ml/min/1.73 sqM); Anion Gap 7 mmol/L; Blood Urea Nitrogen 13 mg/dL (9-20); Calcium 8.5 mg/dL (8.4-10.2); Carbon Dioxide 26 mmol/L (22-30); Chloride 107 mmol/L (98-107); Glucose 95 mg/dL (74-99); Non-African American GFR(CKD) 81 (>60 ml/min/1.73 sqM); Potassium 3.9 mmol/L (3.5-5.1); Sodium 140 mmol/L (137-145)
[2022-10-03] MEDS: PANTOPRAZOLE 40 MG/10 ML VIAL IV SCH (09:20)
--- NOTE | 2022-10-03 09:45 | P.PN ---
Progress Note - Text Progress Note Date: 10/03/22 Patient states he feels better. He denies a significant abdominal pain. He is tolerating clear liquids. On exam vital signs are stable. Abdomen soft.. Patient will have his diet advanced. We dysphagia discharge home tomorrow.
--- NOTE | 2022-10-03 10:27 | P.PN ---
Subjective Progress Note Date: 10/03/22 Today, patient reports having had bowel movements. Tolerating his diet. Has no abdominal pain. Denies nausea, vomiting. Gen: awake, alert HEENT: normocephalic, atraumatic, good hearing acuity, moist mucous membranes Resp: good air exchange, breathing comfortably with no accessory muscle use CVS: good distal perfusion x 4, GI: soft, NTTP, ND : no SPT, no CVAT, boykin catheter not present MSK: no pitting edema, no clubbing Neuro: non-focal, moving all extremities Psych: cooperative, euthymic mood Hospital course: 76-year-old man with medical history of CAD status post stents with most recent stent in October 2021, hypertension, hyperlipidemia, abdominal hernia repair presented for evaluation of abdominal pain, nausea, vomiting. Gen. surgery evaluated the patient in the emergency room and determined patient had a partial small bowel obstruction and therefore placed NG tube, however, patient quickly improved with passing of flatus and resolution of abdominal pain, therefore NG tube was pulled. Patient was subsequently advanced to a clear liquid diet. Patient was admitted to the surgery service for further management, and medicine was consulted for medical management. Upon medical initial evaluation, patient was afebrile, 151/80, heart rate 76, 95% on room air. CBC demonstrated arnold kocytosis to 13.5. Basic metabolic panel demonstrated elevated BUN at 21, creatinine of 1.08. Calcium was 10.7. Liver function tests showed albumin of 4.7, total protein of 7.2. Amylase was 76, lipase was 53. UA showed 1+ protein, few calcium oxalate crystals, 4 hyaline casts. Initial chest x-ray in the emergency room demonstrated clear parenchyma bilaterally with what appears to be scar tissue on the right hilar area, stable from priors when compared to 12/26/2021. CT of the abdomen/pelvis demonstrated partial small bowel obstruction versus ileus. EKG demonstrated normal sinus rhythm, with normal axis. Repeat chest x-ray demonstrated appropriate position of NG tube. Assessment: Partial small bowel obstruction Hypertension Hyperlipidemia History of abdominal hernia repair History of CAD Plan: Today, patient is afebrile, 151/86, heart rate 66, 95% on room air. CBC reviewed and is unremarkable. Chemistries are reviewed and are unremarkable. Gen. surgery note was reviewed, they recommend advancing diet, with plan to discharge patient tomorrow Discontinue Zosyn Agree with normal saline at 100 mL per hour Agree with morphine 2 mg IV every 4 hours when necessary Resume aspirin 81 mg, Plavix 75 mg daily Resume Lipitor 80 mg daily at bedtime Resume amlodipine 5 mg daily, metoprolol 12.5 mg daily Patient is full code Objective - Vital Signs Vital signs: Vital Signs Temp 98.5 F 10/03/22 07:45 Pulse 66 10/03/22 07:45 Resp 20 10/03/22 07:45 BP 151/86 10/03/22 07:45 Pulse Ox 95 10/03/22 07:45 FiO2 Intake & Output 10/02/22 10/03/22 10/03/22 18:59 06:59 18:59 Intake Total 1100 Balance 1100 Weight 85.729 kg Intake: Intake, IV Titration 1100 Amount Piperacillin-Tazobactam 3 100 .375 gm In Sodium Chloride 0.9% 100 ml @ 25 mls/hr IVPB Q8HR [facility] Rx# :[id number] Sodium Chloride 0.9% 1, 1000 000 ml @ 100 mls/hr IV . Q10H [facility] Rx#:[id number] Oral 0 Other: Voiding Method Toilet # Voids 1 3 - Labs CBC & Chem 7: 10/03/22 07:38 10/03/22 07:32
[2022-10-03] MEDS: ATORVASTATIN 80 MG TAB PO SCH (20:00)
[2022-10-04 01:53] VITALS: RESP 18
[2022-10-04 08:06] VITALS: BP 161/79; PULSE 64; TEMP 97.7
[2022-10-04] MEDS: LISINOPRIL-HCTZ 20-25 MG 1 EACH TAB PO SCH (09:02)
[2022-10-04] MEDS: CLOPIDOGREL 75 MG TAB PO SCH (09:02)
[2022-10-04] MEDS: amLODIPine 5 MG TAB PO SCH (09:02)
[2022-10-04] MEDS: buPROPion SR 150 MG TABLET.ER PO SCH (09:02)
[2022-10-04] MEDS: ASPIRIN 81 MG PO SCH (09:02)
[2022-10-04] MEDS: METOPROLOL TARTRATE 12.5 MG TAB PO SCH (09:02)
[2022-10-04] MEDS: SODIUM CHLORIDE 0.9% 1,000 ML IV SCH (09:04)
[2022-10-04] MEDS: HEPARIN SODIUM,PORCINE/PF 5,000 UNIT/0.5 ML SYRINGE SQ SCH (09:05)
[2022-10-04] MEDS: PANTOPRAZOLE 40 MG/10 ML VIAL IV SCH (09:08)
--- NOTE | 2022-10-04 10:15 | P.DS ---
Providers Date of admission: 10/02/22 07:53 Expected date of discharge: 10/04/22 Attending physician: Justin Franklin Consults: 10/02/22 13:37 Consult Physician Routine Consulting Provider: Gurvinder Johns Consult Reason/Comments: medical management Do you want consulting provider notified?: Yes Primary care physician: [facility] Hospital Course: This a 72-year-old male with possible partial small bowel obstruction. Patient improved with conservative therapy. Patient was discharged home he'll follow-up the office 1 week. Patient Condition at Discharge: Good Plan - Discharge Summary Discharge Rx Participant: No New Discharge Prescriptions: Continue amLODIPine [Norvasc] 5 mg PO DAILY Lisinopril-Hctz 20-25 mg [Zestoretic 20-25] 1 tab PO DAILY buPROPion HCL [Wellbutrin SR] 150 mg PO BID Aspirin EC [Ecotrin Low Dose] 81 mg PO DAILY Atorvastatin [Lipitor] 80 mg PO HS 60 Days #60 tab Metoprolol Tartrate 12.5 mg PO DAILY Clopidogrel [Plavix] 75 mg PO DAILY 60 Days #60 tab Discharge Medication List Lisinopril-Hctz 20-25 mg [Zestoretic 20-25] 1 tab PO DAILY 06/12/20 [History] amLODIPine [Norvasc] 5 mg PO DAILY 06/12/20 [History] Aspirin EC [Ecotrin Low Dose] 81 mg PO DAILY 12/26/21 [History] buPROPion HCL [Wellbutrin SR] 150 mg PO BID 12/26/21 [History] Atorvastatin [Lipitor] 80 mg PO HS 60 Days #60 tab 12/27/21 [Rx] Clopidogrel [Plavix] 75 mg PO DAILY 60 Days #60 tab 12/27/21 [Rx] Metoprolol Tartrate 12.5 mg PO DAILY 01/16/22 [History] Follow up Appointment(s)/Referral(s): [facility] [Primary Care Provider] - 1-2 days Justin Franklin MD [STAFF PHYSICIAN] - 1 Week Patient Instructions/Handouts: Bowel Obstruction (DC) Discharge Disposition: HOME SELF-CARE
--- NOTE | 2022-10-04 10:21 | P.PN ---
Subjective Progress Note Date: 10/04/22 Today, patient is feeling well. Tolerated his diet. Has no abdominal pain. Has had bowel movements. Gen: awake, alert HEENT: normocephalic, atraumatic, good hearing acuity, moist mucous membranes Resp: good air exchange, breathing comfortably with no accessory muscle use CVS: good distal perfusion x 4, GI: soft, NTTP, ND : no SPT, no CVAT, boykin catheter not present MSK: no pitting edema, no clubbing Neuro: non-focal, moving all extremities Psych: cooperative, euthymic mood Hospital course: 76-year-old man with medical history of CAD status post stents with most recent stent in October 2021, hypertension, hyperlipidemia, abdominal hernia repair presented for evaluation of abdominal pain, nausea, vomiting. Gen. surgery evaluated the patient in the emergency room and determined patient had a partial small bowel obstruction and therefore placed NG tube, however, patient quickly improved with passing of flatus and resolution of abdominal pain, therefore NG tube was pulled. Patient was subsequently advanced to a clear liquid diet. Patient was admitted to the surgery service for further management, and medicine was consulted for medical management. Upon medical initial evaluation, patient was afebrile, 151/80, heart rate 76, 95% on room air. CBC demonstrated leukocytosis to 13.5. Basic metabolic panel demonstrated elevated BUN at 21, creatinine of 1.08. Calcium was 10.7. Liver function tests showed albumin of 4.7, total protein of 7.2. Amylase was 76, lipase was 53. UA showed 1+ protein, few calcium oxalate crystals, 4 hyaline casts. Initial chest x-ray in the emergency room demonstrated clear parenchyma bilaterally with what appears to be scar tissue on the right hilar area, stable from priors when compared to 12/26/2021. CT of the abdomen/pelvis demonstrated partial small bowel obstruction versus ileus. EKG demonstrated normal sinus rhythm, with normal axis. Repeat chest x-ray demonstrated appropriate position of NG tube. Assessment: Partial small bowel obstruction Hypertension Hyperlipidemia History of abdominal hernia repair History of CAD Plan: Today, patient is afebrile, 161/79, heart rate 64, 95% on room air Gen. surgery note was reviewed, they recommend discharging patient at this time Patient is medically stable for discharge, medication reconciliation from the medical perspective has been addressed Objective - Vital Signs Vital signs: Vital Signs Temp 97.7 F 10/04/22 07:50 Pulse 64 10/04/22 07:50 Resp 18 10/04/22 07:50 BP 161/79 10/04/22 07:50 Pulse Ox 95 10/04/22 07:50 FiO2 Intake & Output 10/03/22 10/04/22 10/04/22 18:59 06:59 18:59 Intake Total 1300 1800 Balance 1300 1800 Intake: Intake, IV Titration 1300 1200 Amount Piperacillin-Tazobactam 3 100 .375 gm In Sodium Chloride 0.9% 100 ml @ 25 mls/hr IVPB Q8HR [facility] Rx# :[id number] Sodium Chloride 0.9% 1, 1200 1200 000 ml @ 100 mls/hr IV . Q10H [facility] Rx#:[id number] Oral 600 Other: Voiding Method Toilet # Voids 3 - Labs CBC & Chem 7: 10/03/22 07:38 10/03/22 07:32
== END 2022-10-04 11:06 | disposition home or self-care (01) | DRG 390 ==
LOC: EC 03:54 → 5NMEDONC 07:53
PROVIDERS: ADMIT Surgery; ATTEND Surgery
PROC: 0D9670Z Drainage of Stomach with Drainage Device, Via Natural or Artificial Opening (ICD-10-PCS; principal; 2022-10-02)
DX: K56.600 Partial intestinal obstruction, unspecified as to cause (principal); E78.5 Hyperlipidemia, unspecified; I25.10 Atherosclerotic heart disease of native coronary artery without angina pectoris; F17.200 Nicotine dependence, unspecified, uncomplicated; F43.10 Post-traumatic stress disorder, unspecified; K56.7 Ileus, unspecified; I10 Essential (primary) hypertension; Z87.19 Personal history of other diseases of the digestive system; I25.2 Old myocardial infarction; Z79.02 Long term (current) use of antithrombotics/antiplatelets; Z79.82 Long term (current) use of aspirin; Z79.899 Other long term (current) drug therapy; Z85.118 Personal history of other malignant neoplasm of bronchus and lung; Z95.5 Presence of coronary angioplasty implant and graft
CPT/HCPCS: 36415; 71046; 74177; 80048; 80053; 81001; 82150; 83605; 83690; 84484; 85025; 85610; 85730; 93005; 96361; 96365; 96366; 96375; 99285

== ENCOUNTER 2023-06-07 07:41 | Observation (INO) | payer OTHER, MEDICARE ==
[2023-06-07] MEDS ORDERED: SODIUM CHLORIDE 0.9% 500 ML 500 ML IV STA (08:37)
--- NOTE | 2023-06-07 08:40 | ED ---
General Adult HPI - General Chief complaint: Weakness Stated complaint: Weakness Time Seen by Provider: 06/07/23 08:00 Source: patient, RN notes reviewed, old records reviewed Mode of arrival: ambulatory Limitations: no limitations - History of Present Illness Initial comments: This is a 77-year-old male who states he woke up this morning was lightheaded he took his normal medications which include a blood pressure medication. Patient states after that he took his blood pressure and it was low and he felt lightheaded like he might pass out so he came to the emergency department. Patient states he occasionally has some sharp chest pain if he takes a really large breath but it goes away in less than a second. Patient denies any fever chills per patient denies any nausea vomiting per patient states he has no shortness of breath per patient states lying here in bed he feels completely fine when he gets up and moves around. Patient denies any abdominal pain. - Related Data Home Medications Medication Instructions Recorded Confirmed Lisinopril-Hctz 20-25 mg 1 tab PO DAILY 06/12/20 10/02/22 [Zestoretic 20-25] amLODIPine [Norvasc] 5 mg PO DAILY 06/12/20 10/02/22 Aspirin EC [Ecotrin Low Dose] 81 mg PO DAILY 12/26/21 10/02/22 buPROPion HCL [Wellbutrin SR] 150 mg PO BID 12/26/21 10/02/22 Metoprolol Tartrate 12.5 mg PO DAILY 01/16/22 10/02/22 Previous Rx's Medication Instructions Recorded Atorvastatin [Lipitor] 80 mg PO HS 60 Days #60 tab 12/27/21 Clopidogrel [Plavix] 75 mg PO DAILY 60 Days #60 tab 12/27/21 Allergies Allergy/AdvReac Type Severity Reaction Status Date / Time No Known Allergies Allergy Verified 06/07/23 07:53 Review of Systems ROS Statement: Those systems with pertinent positive or pertinent negative responses have been documented in the HPI. ROS Other: All systems not noted in ROS Statement are negative. Past Medical History Past Medical History: Hypertension, Myocardial Infarction ([place]) Additional Past Medical History / Comment(s): Lung CA right upper lung Last Myocardial Infarction Date:: 10/2021 History of Any Multi-Drug Resistant Organisms: None Reported Past Surgical History: Heart Catheterization With Stent, Hernia Repair Additional Past Surgical History / Comment(s): carotid left, right upper lung lobectomy Past Anesthesia/Blood Transfusion Reactions: No Reported Reaction Date of Last Stent Placement:: 10/2021 Past Psychological History: PTSD Smoking Status: Former smoker Past Alcohol Use History: Daily Past Drug Use History: None Reported - Past Family History Father Family Medical History: No Reported History Additional Family Medical History / Comment(s): Father was healthy. Mother Family Medical History: No Reported History Additional Family Medical History / Comment(s): Mother was healthy. Brother(s) Family Medical History: Cancer General Exam - General Exam Comments Initial Comments: GENERAL: Patient is well-developed and well-nourished. Patient is nontoxic and well- hydrated and is in no acute distress. ENT: Neck is soft and supple. No significant lymphadenopathy is noted. Oropharynx is clear. Moist mucous membranes. Neck has full range of motion without eliciting any pain. EYES: The sclera were anicteric and conjunctiva were pink and moist. Extraocular movements were intact and pupils were equal round and reactive to light. Eyelids were unremarkable. PULMONARY: Unlabored respirations. Good breath sounds bilaterally. No audible rales rhonchi or wheezing was noted. CARDIOVASCULAR: There is a regular rate and rhythm without any murmurs gallops or rubs. ABDOMEN: Soft and nontender with normal bowel sounds. SKIN: Skin is clear with no lesions or rashes and otherwise unremarkable. NEUROLOGIC: Patient is alert and oriented x3. Cranial nerves II through XII are grossly intact. Motor and sensory are also intact. Normal speech, volume and content. Symmetrical smile. MUSCULOSKELETAL: Normal extremities with adequate strength and full range of motion. No lower extremity swelling or edema. No calf tenderness. LYMPHATICS: No significant lymphadenopathy is noted PSYCHIATRIC: Normal psychiatric evaluation. Limitations: no limitations Course Vital Signs 06/07/23 07:48 Temperature 98.1 F Pulse Rate 60 Respiratory 20 Rate Blood Pressure 104/70 O2 Sat by Pulse 97 Oximetry Medical Decision Making - Medical Decision Making EKG shows sinus rhythm at 62 bpm FL interval 148 QRS is 93 QT interval is 413 QTC is 417. Patient's EKG shows no ST segment elevation or depression. Was pt. sent in by a medical professional or institution (, PA, LEGAL RESEARCH ANALYST, urgent care, hospital, or correction...) When possible be specific @ -No Did you speak to anyone other than the patient for history (EMS, parent, family, police, friend...)? What history was obtained from this source @ -No Did you review nursing and triage notes (agree or disagree)? Why? @ -I reviewed and agree with nursing and triage notes Were old charts reviewed (outside hosp., previous admission, EMS record, old EKG, old radiological studies, urgent care reports/EKG's, correction records)? Report findings @ -Reviewed prior charts from prior lab work Differential Diagnosis (chest pain, altered mental status, abdominal pain women, abdominal pain men, vaginal bleeding, weakness, fever, dyspnea, syncope, headache, dizziness, GI bleed, back pain, seizure, CVA, palpatations, mental health, musculoskeletal)? @ -Differential Syncope: Valvular disease, hypertrophic cardiomyopathy, pulmonary embolism, tamponade, tachycardia, bradycardia, ME, hypovolemia, hemorrhage, dissection, anemia, intracranial hemorrhage, seizure, hypoglycemia, carbon monoxide poisoning, this is not meant to be an all-inclusive list. EKG interpreted by me (3pts min.). @ -As above X-rays interpreted by me (1pt min.). @ -Chest x-ray showed no acute abnormality CT interpreted by me (1pt min.). @ -None done U/S interpreted by me (1pt. min.). @ -None done What testing was considered but not performed or refused? (CT, X-rays, U/S, labs)? Why? @ -None What meds were considered but not given or refused? Why? @ -None Did you discuss the management of the patient with other professionals (professionals i.e. , PA, LEGAL RESEARCH ANALYST, lab, RT, psych nurse, social media analyst, staff occupational therapist, teacher, intelligence support officer, shoe parts caser)? Give summary @ -I spoke with sound physician's and the agreed to admit the patient Was smoking cessation discussed for >3mins.? @ -No Was critical care preformed (if so, how long)? @ -No Were there social determinants of health that impacted care today? How? (H omelessness, low income, unemployed, alcoholism, drug addiction, transportation, low edu. Level, literacy, decrease access to med. care, correction, rehab)? @ -No Was there de-escalation of care discussed even if they declined (Discuss DNR or withdrawal of care, Hospice)? DNR status @ -No What co-morbidities impacted this encounter? (DM, HTN, Smoking, COPD, CAD, Cancer, CVA, ARF, Chemo, Hep., AIDS, mental health diagnosis, sleep apnea, morbid obesity)? @ -None Was patient admitted / discharged? Hospital course, mention meds given and route, prescriptions, significant lab abnormalities, going to OR and other pertinent info. @ -Nursing noticed that he patient's heart rate dipped into the 30s on 2 different occasions . Patient will be admitted for bradycardia sound physician's we'll admit I will consult cardiology Undiagnosed new problem with uncertain prognosis? @ -No Drug Therapy requiring intensive monitoring for toxicity (Heparin, Nitro, Insulin, Cardizem)? @ -No Were any procedures done? @ -No Diagnosis/symptom? @ -Bradycardia Acute, or Chronic, or Acute on Chronic? @ -Acute Uncomplicated (without systemic symptoms) or Complicated (systemic symptoms)? @ -Complicated Side effects of treatment? @ -No Exacerbation, Progression, or Severe Exacerbation? @ -No Poses a threat to life or bodily function? How? (Chest pain, USA, ME, pneumonia, PE, COPD, DKA, ARF, appy, cholecystitis, CVA, Diverticulitis, Homicidal, Suicidal, threat to staff... and all critical care pts) @ -Yes this can lead to poor perfusion and end organ dysfunction Diagnosis/symptom? @ -Near syncope Acute, or Chronic, or Acute on Chronic? @ -Acute Uncomplicated (without systemic symptoms) or Complicated (systemic symptoms)? @ -Complicated Side effects of treatment? @ -none Exacerbation, Progression, or Severe Exacerbation] @ -no Poses a threat to life or bodily function? @ -no - Lab Data Result diagrams: 06/07/23 09:00 06/07/23 09:00 Lab Results 06/07/23 06/07/23 06/07/23 Range/Units 09:00 09:00 09:00 WBC 12.2 H (3.8-10.6) k/uL RBC 4.74 (4.30-5.90) m/uL Hgb 15.5 (13.0-17.5) gm/dL Hct 45.0 (39.0-53.0) % MCV 94.8 (80.0-100.0) fL MCH 32.7 (25.0-35.0) pg MCHC 34.5 (31.0-37.0) g/dL RDW 13.3 (11.5-15.5) % Plt Count 228 (150-450) k/uL MPV 8.3 Neutrophils % 88 % Lymphocytes % 5 % Monocytes % 4 % Eosinophils % 2 % Basophils % 0 % Neutrophils # 10.7 H (1.3-7.7) k/uL Lymphocytes # 0.6 L (1.0-4.8) k/uL Monocytes # 0.5 (0-1.0) k/uL Eosinophils # 0.3 (0-0.7) k/uL Basophils # 0.1 (0-0.2) k/uL PT 10.6 (10.0-12.5) sec INR 1.0 (<1.2) APTT 23.2 (22.0-30.0) sec D-Dimer 0.30 (<0.60) mg/L FEU Sodium 134 L (137-145) mmol/L Potassium 4.2 (3.5-5.1) mmol/L Chloride 96 L (98-107) mmol/L Carbon Dioxide 24 (22-30) mmol/L Anion Gap 14 mmol/L BUN 15 (9-20) mg/dL Creatinine 0.75 (0.66-1.25) mg/dL Est GFR (CKD-EPI)AfAm >90 (>60 ml/min/1.73 sqM) Est GFR (CKD-EPI)NonAf 90 (>60 ml/min/1.73 sqM) Glucose 111 H (74-99) mg/dL Plasma Lactic Acid Oral (0.7-2.0) mmol/L Calcium 9.2 (8.4-10.2) mg/dL Magnesium 1.9 (1.6-2.3) mg/dL Total Bilirubin 0.8 (0.2-1.3) mg/dL AST 32 (17-59) U/L ALT 43 (4-49) U/L Alkaline Phosphatase 51 (38-126) U/L Troponin I (0.000-0.034) ng/mL Total Protein 6.8 (6.3-8.2) g/dL Albumin 4.4 (3.5-5.0) g/dL 06/07/23 06/07/23 Range/Units 09:00 09:00 WBC (3.8-10.6) k/uL RBC (4.30-5.90) m/uL Hgb (13.0-17.5) gm/dL Hct (39.0-53.0) % MCV (80.0-100.0) fL MCH (25.0-35.0) pg MCHC (31.0-37.0) g/dL RDW (11.5-15.5) % Plt Count (150-450) k/uL MPV Neutrophils % % Lymphocytes % % Monocytes % % Eosinophils % % Basophils % % Neutrophils # (1.3-7.7) k/uL Lymphocytes # (1.0-4.8) k/uL Monocytes # (0-1.0) k/uL Eosinophils # (0-0.7) k/uL Basophils # (0-0.2) k/uL PT (10.0-12.5) sec INR (<1.2) APTT (22.0-30.0) sec D-Dimer (<0.60) mg/L FEU Sodium (137-145) mmol/L Potassium (3.5-5.1) mmol/L Chloride (98-107) mmol/L Carbon Dioxide (22-30) mmol/L Anion Gap mmol/L BUN (9-20) mg/dL Creatinine (0.66-1.25) mg/dL Est GFR (CKD-EPI)AfAm (>60 ml/min/1.73 sqM) Est GFR (CKD-EPI)NonAf (>60 ml/min/1.73 sqM) Glucose (74-99) mg/dL Plasma Lactic Acid Oral 1.6 (0.7-2.0) mmol/L Calcium (8.4-10.2) mg/dL Magnesium (1.6-2.3) mg/dL Total Bilirubin (0.2-1.3) mg/dL AST (17-59) U/L ALT (4-49) U/L Alkaline Phosphatase (38-126) U/L Troponin I <0.012 (0.000-0.034) ng/mL Total Protein (6.3-8.2) g/dL Albumin (3.5-5.0) g/dL Disposition Clinical Impression: Near syncope, Bradycardia Disposition: ADMITTED IP TO THIS HOSP Referrals: [facility],Clinic [Primary Care Provider] - 1-2 days Time of Disposition: 11:18
--- NOTE | 2023-06-07 09:09 | XR ---
EXAMINATION TYPE: XR chest 2V DATE OF EXAM: 06/07/2023 COMPARISON: 10/02/2022 HISTORY: 77-year-old male with weakness and lightheadedness TECHNIQUE: AP and lateral views FINDINGS: Heart normal size. Aorta and pulmonary vasculature are within normal limits. Hyperinflation. Some pat leti opacity periphery of the right base. No pleural effusion. IMPRESSION: COPD. Some patchy opacity at the periphery of the right base, probably atelectasis.
[2023-06-07 09:45] LABS: Partial Thromboplastin Time 23.2 sec (22.0-30.0); Prothrombin Time 10.6 sec (10.0-12.5)
[2023-06-07 09:46] LABS: Basophils # (A) 0.1 k/uL (0-0.2); Basophils % (A) 0 %; Eosinophils # (A) 0.3 k/uL (0-0.7); Eosinophils % (A) 2 %; HGB 15.5 gm/dL (13.0-17.5); Lymphocytes # (A) 0.6 k/uL (1.0-4.8); Lymphocytes % (A) 5 %; MCH 32.7 pg (25.0-35.0); MCHC 34.5 g/dL (31.0-37.0); MCV 94.8 fL (80.0-100.0); Mean Platelet Volume 8.3; Monocytes # (A) 0.5 k/uL (0-1.0); Monocytes % (A) 4 %; Neutrophils # (A) 10.7 k/uL (1.3-7.7); Neutrophils % (A) 88 %; Platelet Count 228 k/uL (150-450); RBC 4.74 m/uL (4.30-5.90); RDW 13.3 % (11.5-15.5); WBC 12.2 k/uL (3.8-10.6)
[2023-06-07 09:49] LABS: ALT 43 U/L (4-49); AST 32 U/L (17-59); African American GFR (CKD) >90 (>60 ml/min/1.73 sqM); Albumin 4.4 g/dL (3.5-5.0); Alkaline Phosphatase 51 U/L (38-126); Anion Gap 14 mmol/L; Blood Urea Nitrogen 15 mg/dL (9-20); Calcium 9.2 mg/dL (8.4-10.2); Carbon Dioxide 24 mmol/L (22-30); Chloride 96 mmol/L (98-107); Glucose 111 mg/dL (74-99); Magnesium 1.9 mg/dL (1.6-2.3); Non-African American GFR(CKD) 90 (>60 ml/min/1.73 sqM); Potassium 4.2 mmol/L (3.5-5.1); Sodium 134 mmol/L (137-145); Total Bilirubin 0.8 mg/dL (0.2-1.3); Total Protein 6.8 g/dL (6.3-8.2)
[2023-06-07] MEDS ORDERED: NITROGLYCERIN SL TABS 0.4 MG TAB SUBLINGUAL PRN (11:18)
[2023-06-07] MEDS ORDERED: MELATONIN 5 MG TABLET PO PRN (12:56)
--- NOTE | 2023-06-07 13:26 | P.HPIM ---
History of Present Illness H&P Date: 06/07/23 77-year-old male with PMH of CAD, hypertension, dyslipidemia, history of smoking presents to the ED for lightheadedness. Symptoms started this morning when he woke up. Lightheadedness is worsened with changes in position. Took his BP at home which was 86/57. He also reports exertional shortness of breath progressively getting worse over the past 2 weeks. Reports he had a upper respiratory infection 2 weeks ago. He denies any chest pain or palpitations. No nausea or vomiting. No abdominal pain, changes in urination or bowel habits. In the ED, he underwent extensive evaluation. Vital signs stable. ED physician does report that his heart rate dropped into the 30s twice during his ED stay. CBC WBC count of 12.2. Coag panel within normal limits. D-dimer 0.3. CMP showed sodium 134, chloride 96, glucose 111. Lactic acid 1.6 Troponin < 0.012 x 2 EKG sinus rhythm with Q waves. Chest x-ray right sided infiltrates Patient was admitted for further management and workup. General: non toxic, no distress, appears at stated age Derm: warm, dry Head: atraumatic, normocephalic, symmetric Eyes: EOMI, no lid lag, anicteric sclera Mouth: no lip lesion, mucus membranes moist Cardiovascular: S1S2 reg, no murmur Lungs: Decreased breath sounds bilateral, no rhonchi, no rales , no accessory muscle use Ext: no gross muscle atrophy, no edema, no contractures Neuro: no focal neuro deficits Psych: Alert, oriented, appropriate affect Based on my assessment of this patient, this patient meets a high complexity level of care. Patient has an acute diagnosis of lightheadedness with reported bradycardia that poses a threat to life or bodily function. Bradycardia: HR reported to be in the 30s while in the ED. Discontinue Metoprolol. Cardiology consult. Lightheadedness: Obtain orthostats. Troponins negative, ACS ruled out. Telemetry monitoring. Leukocytosis: Questionable infiltrate on CXR. No obvious signs of infection. Obtain pro-beatriz. CODE STATUS: FULL CODE DVT Prophylaxis: Lovenox SQ GI Prophylaxis: Designated medical POA if patient is not able to make medical decisions for themselves: I have reviewed the following practice consultant notes: I have reviewed the results of the following tests: As above. I have ordered the following tests: As above. I have discussed the care of this patient with the following independent historian: I have independently interpreted the following test below: EKG. CXR. I have discussed the management of this patient with the following physician: Discussed with the ED provider. Past Medical History Past Medical History: Hypertension, Myocardial Infarction ([place]) Additional Past Medical History / Comment(s): Lung CA right upper lung Last Myocardial Infarction Date:: 10/2021 History of Any Multi-Drug Resistant Organisms: None Reported Past Surgical History: Heart Catheterization With Stent, Hernia Repair Additional Past Surgical History / Comment(s): carotid left, right upper lung lobectomy Past Anesthesia/Blood Transfusion Reactions: No Reported Reaction Date of Last Stent Placement:: 10/2021 Past Psychological History: PTSD Smoking Status: Former smoker Past Alcohol Use History: Daily Past Drug Use History: None Reported - Past Family History Father Family Medical History: No Reported History Additional Family Medical History / Comment(s): Father was healthy. Mother Family Medical History: No Reported History Additional Family Medical History / Comment(s): Mother was healthy. Brother(s) Family Medical History: Cancer Medications and Allergies Home Medications Medication Instructions Recorded Confirmed Type Lisinopril-Hctz 20-25 mg 1 tab PO DAILY 06/12/20 06/07/23 History [Zestoretic -] amLODIPine [Norvasc] 5 mg PO DAILY 06/12/20 06/07/23 History Aspirin EC [Ecotrin Low Dose] 81 mg PO DAILY 12/26/21 06/07/23 History buPROPion HCL [Wellbutrin SR] 150 mg PO BID 12/26/21 06/07/23 History Atorvastatin [Lipitor] 80 mg PO HS 60 Days #60 tab 12/27/21 06/07/23 Rx Metoprolol Tartrate 12.5 mg PO DAILY 01/16/22 06/07/23 History Melatonin 5 mg PO HS PRN 06/07/23 06/07/23 History Allergies Allergy/AdvReac Type Severity Reaction Status Date / Time No Known Allergies Allergy Verified 06/07/23 07:53 Physical Exam Vitals: Vital Signs Temp Pulse Resp BP Pulse Ox 06/07/23 11:32 97.6 F 61 18 139/80 97 06/07/23 07:48 98.1 F 60 20 104/70 97 Intake and Output 06/06/23 06/07/23 06/07/23 22:59 06:59 14:59 Other: Weight 82.554 kg Results CBC & Chem 7: 06/07/23 09:00 06/07/23 09:00 Labs: Abnormal Lab Results - Last 24 Hours (Table) 06/07/23 06/07/23 Range/Units 09:00 09:00 WBC 12.2 H (3.8-10.6) k/uL Neutrophils # 10.7 H (1.3-7.7) k/uL Lymphocytes # 0.6 L (1.0-4.8) k/uL Sodium 134 L (137-145) mmol/L Chloride 96 L (98-107) mmol/L Glucose 111 H (74-99) mg/dL
[2023-06-07] MEDS: buPROPion SR 150 MG TABLET.ER PO SCH (20:02)
[2023-06-07] MEDS ORDERED: ATORVASTATIN 80 MG TAB PO SCH (21:00)
[2023-06-08] MEDS: buPROPion SR 150 MG TABLET.ER PO SCH (08:57)
[2023-06-08] MEDS ORDERED: ENOXAPARIN 40 MG/0.4 ML SYRINGE SQ SCH (09:00)
[2023-06-08] MEDS ORDERED: LISINOPRIL-HCTZ 20-25 MG 1 EACH TAB PO SCH (09:00)
[2023-06-08] MEDS ORDERED: ASPIRIN 325 MG TAB PO SCH (09:00)
[2023-06-08] MEDS ORDERED: ASPIRIN 81 MG PO SCH (09:00)
[2023-06-08] MEDS ORDERED: amLODIPine 5 MG TAB PO SCH (09:00)
[2023-06-08 09:16] LABS: Chol/HDL Ratio 2.69 Ratio; LDL Cholesterol,Calculated 19.3 mg/dL (0.0-131.0)
--- NOTE | 2023-06-08 12:43 | P.CRDCN ---
History of Present Illness History of present illness: HISTORY OF PRESENTING ILLNESS Patient is a pleasant 77-year-old male with history of hypertension, CAD status post PCI, hyperlipidemia, previous tobacco abuse and quit who presents secondary to lightheaded episodes. He states he was not feeling well yesterday with generalized fatigue, decreased appetite, mild nausea. He states he did not really eat much. He started noticing lightheadedness mainly when he was standing up and walking around. The pressure home was in the 80s over 50s and therefore presented to emergency department. He states normally blood pressure [facility] and more in the 100 range over 60s. He denies prior issues with lightheadedness or syncope. While in the emergency department his heart rate was noted to go lower in the 30s however he admits this was when he was getting his IV started. He denies any actual chest pain or pressure however admits that with exertion he will feel short of breath. He also admits that fairly persistent cough for the last 3-6 months being worked up at the [facility]. He states he has never had any inhalers and has never had any pulmonary function testing however. He has been on lisinopril for some time and discussed possibility of an MOUNA inhibitor cough. Last heart catheterization with complex PCI was 01/19/2022 with rotational atherectomy and PCI of the RCA. He admits to fairly persistent shortness of breath since that time however has not worsened at all. EKG shows normal sinus rhythm, normal axis, no significant ST-T wave abnormalities. REVIEW OF SYSTEMS At the time of my exam: CONSTITUTIONAL: Denies fever or chills. CARDIOVASCULAR: Denies chest pain, +chronic shortness of breath, no orthopnea, PND or palpitations. RESPIRATORY: Denies cough. GASTROINTESTINAL: Denies abdominal pain, diarrhea, constipation, nausea or vomiting. MUSCULOSKELETAL: Denies myalgias. NEUROLOGIC: Denies numbness, tingling or weakness. ENDOCRINE: Denies fatigue, weight change, polydipsia or polyurina. GENITOURINARY: Denies burning, hematuria or urgency with micturation. HEMATOLOGIC: Denies history of anemia or bleeding. PHYSICAL EXAMINATION Vital signs reviewed. CONSTITUTIONAL: No apparent distress. HEENT: Head is normocephalic. Pupils are equal, round. Sclerae anicteric. Mucous membranes of the mouth are moist. No JVD. No carotid bruit. CHEST EXAMINATION: Lungs are clear to auscultation. No chest wall tenderness is noted on palpation or with deep breathing. HEART EXAMINATION: Regular rate and rhythm. S1, S2 heard. No murmurs, gallops or rub. ABDOMEN: Soft, nontender. Positive bowel sounds. EXTREMITIES: 2+ peripheral pulses, no lower extremity edema and no calf tenderness. NEUROLOGIC EXAMINATION: Patient is awake, alert and oriented x3. ASSESSMENT 1. Lightheaded episodes appears mainly related to blood pressure with blood pressures 80s over 50s, likely exacerbated by decreased oral intake, possible viral etiology 2. Recent decreased appetite, mild nausea 1 day, possible viral etiology 3. Bradycardia noted in the emergency department while starting IV, likely vasovagal related 4. CAD with history of PCI 5. Chronic cough, rule out MOUNA inhibitor cough versus pulmonary source 6. Chronic dyspnea on exertion, possible pulmonary source with prior history of tobacco abuse 7. History of carotid endarterectomy PLAN Patient's lightheadedness likely related to decreased blood pressures and we will stop the metoprolol and monitor response. Possible recent viral etiology with decreased oral intake. Bradycardia likely vasovagal related however we will continue to hold metoprolol for now and outpatient event monitor can be placed in the office if still concerned. No indications for permanent pacemaker currently. Change lisinopril to losartan for possible MOUNA inhibitor cough. Discussed possibility of repeating stress testing given persistent dyspnea however discussed more likely etiology of pulmonary source with prior lung cancer and tobacco abuse. He is willing to undergo pulmonary evaluation first. Echocardiogram shows preserved EF and patient appears stable for discharge home with outpatient follow-up. Past Medical History Past Medical History: Hypertension, Myocardial Infarction ([place]) Additional Past Medical History / Comment(s): Lung CA right upper lung Last Myocardial Infarction Date:: 10/2021 History of Any Multi-Drug Resistant Organisms: None Reported Past Surgical History: Heart Catheterization With Stent, Hernia Repair Additional Past Surgical History / Comment(s): carotid left, right upper lung lobectomy Past Anesthesia/Blood Transfusion Reactions: No Reported Reaction Date of Last Stent Placement:: 10/2021 Past Psychological History: PTSD Smoking Status: Former smoker Past Alcohol Use History: Daily Past Drug Use History: None Reported - Past Family History Father Family Medical History: No Reported History Additional Family Medical History / Comment(s): Father was healthy. Mother Family Medical History: No Reported History Additional Family Medical History / Comment(s): Mother was healthy. Brother(s) Family Medical History: Cancer Medications and Allergies Home Medications Medication Instructions Recorded Confirmed Type Lisinopril-Hctz 20-25 mg 1 tab PO DAILY 06/12/20 06/07/23 History [Zestoretic 20-25] amLODIPine [Norvasc] 5 mg PO DAILY 06/12/20 06/07/23 History Aspirin EC [Ecotrin Low Dose] 81 mg PO DAILY 12/26/21 06/07/23 History buPROPion HCL [Wellbutrin SR] 150 mg PO BID 12/26/21 06/07/23 History Atorvastatin [Lipitor] 80 mg PO HS 60 Days #60 tab 12/27/21 06/07/23 Rx Metoprolol Tartrate 12.5 mg PO DAILY 01/16/22 06/07/23 History Melatonin 5 mg PO HS PRN 06/07/23 06/07/23 History Allergies Allergy/AdvReac Type Severity Reaction Status Date / Time No Known Allergies Allergy Verified 06/07/23 07:53 Physical Exam Vitals: Vital Signs Temp Pulse Resp BP BP Pulse Ox 06/08/23 08:00 71 18 06/08/23 07:00 98.0 F 71 18 104/66 96 06/08/23 01:22 98.6 F 71 16 116/66 95 06/07/23 19:54 98.8 F 67 16 118/65 97 06/07/23 14:25 97.5 F L 67 16 128/76 99 Intake and Output 06/07/23 06/08/23 06/08/23 22:59 06:59 14:59 Intake Total 590 Balance 590 Intake: Oral 590 Other: Voiding Method Toilet # Voids 2 1 Results 06/07/23 09:00 06/07/23 09:00 Cardiac Enzymes 06/07/23 06/07/23 Range/Units 12:21 15:56 Troponin I <0.012 <0.012 (0.000-0.034) ng/mL Lipids 06/08/23 Range/Units 05:54 Triglycerides 111.00 (0.00-149.00) mg/dL Cholesterol 66.00 (0.00-200.00) mg/dL HDL Cholesterol 24.50 L (40.00-60.00) mg/dL Cholesterol/HDL Ratio 2.69 Ratio Current Medications Generic Name Dose Route Start Last Admin Trade Name Freq PRN Reason Stop Dose Admin Amlodipine Besylate 5 mg 06/08/23 09:00 Amlodipine 5 Mg Tab PO DAILY [facility] Aspirin 81 mg 06/08/23 09:00 06/08/23 08:56 Aspirin 81 Mg PO 81 mg DAILY R[facility]ERTO Administration Atorvastatin Calcium 80 mg 06/07/23 21:00 06/07/23 20:02 Atorvastatin 80 Mg Tab PO 80 mg HS ROVERTO Administration Bupropion HCl 150 mg 06/07/23 21:00 06/08/23 08:57 Bupropion Sr 150 Mg Tablet.Er PO 150 mg BID ROVERTO Administration Enoxaparin Sodium 40 mg 06/08/23 09:00 06/08/23 08:57 Enoxaparin 40 Mg/0.4 Ml Syringe SQ Not Given DAILY [facility] Lisinopril/HCTZ 1 each 06/08/23 09:00 Lisinopril-Hctz 20-25 Mg 1 Each Tab PO DAILY [facility] Melatonin 5 mg 06/07/23 12:56 06/08/23 02:34 Melatonin 5 Mg Tablet PO 5 mg HS PRN Administration Insomnia Nitroglycerin 0.4 mg 06/07/23 11:18 Nitroglycerin Sl Tabs 0.4 Mg Tab SUBLINGUAL Q5M PRN Chest Pain Intake and Output 06/07/23 06/08/23 06/08/23 22:59 06:59 14:59 Intake Total 590 Balance 590 Intake: Oral 590 Other: Voiding Method Toilet # Voids 2 1 06/07/23 09:00 06/07/23 09:00
--- NOTE | 2023-06-08 12:43 | CA ---
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 18 - 58 / 22 - 52 cm??? LA Volume Index 23.1 cm???/m??? 16 - 28 cm???/m??? M-MODE Aortic Root Diameter MM 2.9 cm LA Systolic Diameter MM 4.2 cm LA Ao Ratio MM 1.5 AV Cusp Separation MM 1.4 cm DOPPLER AV Peak Velocity 194.5 cm/s AV Peak Gradient 15.1 mmHg AV Mean Velocity 128.0 cm/s AV Mean Gradient 7.2 mmHg AV Velocity Time Integral 37.5 cm LVOT Peak Velocity 121.7 cm/s LVOT Peak Gradient 5.9 mmHg LVOT Velocity Time Integral 24.3 cm Mitral E Point Velocity 65.5 cm/s Mitral A Point Velocity 90.3 cm/s Mitral E to A Ratio 0.7 MV E' Velocity 7.2 cm/s Mitral E to MV E' Ratio 9.1 TR Peak Velocity 210.7 cm/s TR Peak Gradient 17.8 mmHg FINDINGS Left Ventricle Mildly increased left ventricular wall thickness. Left ventricular cavity size normal. Normal left ventricular systolic function with no obvious regional wall motion abnormalities. Left ventricular ejection fraction is estimated at 55-60 %. Right Ventricle Normal right ventricular size and function. Right ventricular systolic pressure within normal limits. Right Atrium Normal right atrial size. Left Atrium Normal left atrial size. Mitral Valve Structurally normal mitral valve. Mitral valve thickened. Mild mitral annular calcification. Trace mitral regurgitation. Aortic Valve No aortic valve stenosis or regurgitation. Tricuspid Valve Structurally normal tricuspid valve. Mild tricuspid regurgitation. Pulmonic Valve Structurally normal pulmonic valve. Pericardium No pericardial effusion. Aorta Normal size aortic root and proximal ascending aorta. CONCLUSIONS Left ventricular ejection fraction 55-60% Mild increased left ventricular wall thickness Mild mitral calcification Mild tricuspid regurgitation Previewed by: Dr. Dae Omalley DO (Electronically Signed) Final Date: 08 June 2023 12:43
[2023-06-08] MEDS ORDERED: IPRATROPIUM-ALBUTEROL 3 ML NEB INHALATION PRN (12:44)
[2023-06-08 14:37] VITALS: BP 109/65; PULSE 68; RESP 16; TEMP 98
--- NOTE | 2023-06-08 17:04 | P.DS ---
Providers Date of admission: 06/07/23 11:20 Expected date of discharge: 06/08/23 Attending physician: Yariel Rosas MD Consults: 06/07/23 11:19 Consult Physician Urgent Consulting Provider: [facility] Consult Reason/Comments: Bradycardia, near syncope Do you want consulting provider notified?: Yes Primary care physician: [facility] Course: Discharge Diagnosis: Bradycardia. Metoprolol and lisinopril/hydrochlorothiazide was discontinued. Patient discharged home on amlodipine 5 mg daily, losartan 25 mg daily, and hydrochlorothiazide 12.5 mg daily for management of hypertension. Hypertension Lightheadedness, resolved. Patient presented with a chief complaint of dizziness/lightheadedness. Patient reports this resolved just prior to arrival and had no further episodes reported since arrival to our facility. Leukocytosis, believed to be reactive, patient showing no signs of infection. Pro-calcitonin was negative at 0.08. Hospital Course: Patient is a very pleasant 77-year-old male with a past medical history of CAD, hypertension, and hyperlipidemia. He presented to the hospital on 06/07/23 secondary to patient's complaint of dizziness/lightheadedness. Patient reported symptoms beginning upon awakening and worsen with changes of position. Patient reports taking his blood pressure at home which was 86/57 and also states that he has been experiencing shortness of breath with exertion with a past 2 weeks. Neurologically the emergency department. Vital signs stable elevated BP physician does report that patient's heart rate dropped into the 30s place. He presents today. Labs completed and reviewed. CBC showed mild leukocytosis with WBC count of 12.2 otherwise normal findings. Coagulation profile unremarkable with negative d-dimer 0.0. BMP revealing mild hyponatremia with sodium 134, hypochloremia with chloride 90 and a stable glucose 111. Lactic acid normal findings at 1.6. Magnesium 1.9. Liver profile unremarkable. Troponin negative at less than 0.012. Chest x-ray completed showing right-sided infiltrate. EKG completed showing sinus With Q Waves. Patient was admitted under our services consultation to cardiology. Troponins were trended overnight all negative at less than 0.013 draws. Pro-calcitonin negative at 0.08. Influenza A, influenza B, RCA, Covid PCR were all negative. Patient profile unremarkable with the exception of low HDL of 24.50. Echocardiogram was completed showing preserved EF of 55-60% with mild tricuspid regurgitation and mild mitral calcification. Patient was evaluated by cardiology, medication changes were made. Metoprolol and lisinopril/hydrochlorothiazide was discontinued. Patient discharged home on amlodipine 5 mg daily, losartan 25 mg daily, and hydrochlorothiazide 12.5 mg daily for management of hypertension. Cardiology clearing patient from cardiac perspective for outpatient follow-up in our office. Patient has remained free from any further episodes of dizziness/lightheadedness since arrival to our facility. He denies having any chest pain, palpitations, or any other complaints at this time. Patient does request prescription for rescue inhaler that he no longer has at home, otherwise patient denies having any further needs, questions, or concerns. Medically patient is stable for discharge home. Patient to follow up outpatient with PCP in 1-2 days and with vat packer in 1 week. Physical exam: Vital signs reviewed and stable. General: Nontoxic, no distress and appears stated age. Derm: Skin warm and dry, normal coloration for ethnicity. Head: Atraumatic, normocephalic and symmetric. Eyes: EOMs intact, no lid lag, and anicteric sclera Mouth: no lip lesions, mucus membranes moist Cardiovascular: regular rate and rhythm with normal S1S2, no murmur, positive posterior tibial pulses bilaterally, and cap refill < 2 seconds. Lungs: Respirations even, regular, and unlabored on room air. Lungs CTA bilaterally, no rhonchi, no rales, no wheezing, and no accessory muscle usage. Abdominal: soft, nontender to palpation, no guarding, no appreciable organomegaly Ext: ROM intact. No gross muscle atrophy, no edema, no contractures Neuro: Speech clear, face symmetrical and CN II-XII grossly intact with no noted focal neuro deficits Psych: Alert and oriented to person, place, time, and situation. Appropriate and pleasant affect. A total of 35 minutes of time were spent preparing this complex discharge summary. Pt was discharged on 06/08/23 at 4:35 PM. Patient was seen independently by Nurse Practitioner. This document was prepared using [employer] dictation software. Please allow for errors in hole digger operator while rare they do occur. Patient Condition at Discharge: Stable Plan - Discharge Summary Discharge Rx Participant: No New Discharge Prescriptions: New Losartan [Cozaar] 25 mg PO DAILY 30 Days #30 tab hydroCHLOROthiazide [Hydrodiuril] 12.5 mg PO DAILY 30 Days #30 cap Continue amLODIPine [Norvasc] 5 mg PO DAILY buPROPion HCL [Wellbutrin SR] 150 mg PO BID Aspirin EC [Ecotrin Low Dose] 81 mg PO DAILY Atorvastatin [Lipitor] 80 mg PO HS 60 Days #60 tab Melatonin 5 mg PO HS PRN PRN Reason: Insomnia Discontinued Lisinopril-Hctz 20-25 mg [Zestoretic 20-25] 1 tab PO DAILY Metoprolol Tartrate 12.5 mg PO DAILY Discharge Medication List amLODIPine [Norvasc] 5 mg PO DAILY 06/12/20 [History] Aspirin EC [Ecotrin Low Dose] 81 mg PO DAILY 12/26/21 [History] buPROPion HCL [Wellbutrin SR] 150 mg PO BID 12/26/21 [History] Atorvastatin [Lipitor] 80 mg PO HS 60 Days #60 tab 12/27/21 [Rx] Melatonin 5 mg PO HS PRN 06/07/23 [History] Losartan [Cozaar] 25 mg PO DAILY 30 Days #30 tab 06/08/23 [Rx] hydroCHLOROthiazide [Hydrodiuril] 12.5 mg PO DAILY 30 Days #30 cap 06/08/23 [Rx] Follow up Appointment(s)/Referral(s): [facility],Clinic [Primary Care Provider] - 1-2 days Activity/Diet/Wound Care/Special Instructions: Activity: As tolerated. Take breaks as needed. Diet: Heart healthy and carb consistent diet. Avoid salts, or foods with hidden salts such as canned or boxed foods and frozen dinners. Extra salt makes your heart work harder and traps the fluid in your body for longer. Special Instructions: Take all of your medications as directed and remember to keep all of your doctor's appointments and follow-up as needed. Thank you for allowing us to participate in your care, it was truly a pleasure having you for our patient!!! Discharge Disposition: HOME SELF-CARE
[2023-06-09] MEDS ORDERED: hydroCHLOROthiazide 12.5 MG CAP PO SCH (09:00)
[2023-06-09] MEDS ORDERED: LOSARTAN 25 MG TAB PO SCH (09:00)
== END 2023-06-08 17:11 | disposition home or self-care (01) ==
LOC: EC 07:41 → 6NMEDSUR 11:20
PROVIDERS: ADMIT Family Medicine; ATTEND Family Medicine
DX: R53.1 Weakness (principal); R06.02 Shortness of breath; D72.829 Elevated white blood cell count, unspecified; R91.8 Other nonspecific abnormal finding of lung field; Z79.82 Long term (current) use of aspirin; I10 Essential (primary) hypertension; I25.2 Old myocardial infarction; Z79.02 Long term (current) use of antithrombotics/antiplatelets; Z79.899 Other long term (current) drug therapy; Z85.118 Personal history of other malignant neoplasm of bronchus and lung; Z98.61 Coronary angioplasty status; E87.1 Hypo-osmolality and hyponatremia
CPT/HCPCS: 96361 ×3; 96360; 99285; 36415; 93005; 93306; 85379; 80061; 80053; 83605; 83735; 84484; 85025; 85610; 85730; 84145; 87636; 71046; G0378 ×2; S0106 ×2

== ENCOUNTER 2023-11-29 03:57 | Emergency (ER) | payer MEDICARE, OTHER ==
[2023-11-29] MEDS: IPRATROPIUM-ALBUTEROL 3 ML NEB INHALATION STA (05:16)
--- NOTE | 2023-11-29 05:46 | XR ---
EXAM: XR Chest, 2 Views CLINICAL HISTORY: ITS.REASON XR Reason: congested cough, SOB TECHNIQUE: Frontal and lateral views of the chest. COMPARISON: 06/07/23. FINDINGS: Lungs: Unremarkable. No consolidation. Pleural space: Unremarkable. Mediastinum: Minimally calcified aorta. Normal mediastinal contour. Bones/joints: No acute findings. IMPRESSION: No acute findings in the chest.
[2023-11-29] MEDS: predniSONE 20 MG TAB PO STA (06:22)
[2023-11-29] MEDS: IBUPROFEN 400 MG TAB PO STA (06:22)
[2023-11-29] MEDS: ALBUTEROL NEBULIZED 2.5 MG/3 ML INHALATION STA (06:22)
--- NOTE | 2023-11-29 06:40 | ED ---
General Adult HPI - General Chief complaint: Upper Respiratory Infection Stated complaint: Cough Time Seen by Provider: 11/29/23 04:35 Source: patient Mode of arrival: ambulatory Limitations: no limitations - History of Present Illness Onset/Timin -: days(s) Location: head Radiation: non-radiation Consistency: intermittent Improves with: none Worsens with: none Associated Symptoms: cough Treatments Prior to Arrival: none - Related Data Home Medications Medication Instructions Recorded Confirmed amLODIPine [Norvasc] 5 mg PO DAILY 06/12/20 06/07/23 Aspirin EC [Ecotrin Low Dose] 81 mg PO DAILY 12/26/21 06/07/23 buPROPion HCL [Wellbutrin SR] 150 mg PO BID 12/26/21 06/07/23 Melatonin 5 mg PO HS PRN 06/07/23 06/07/23 Previous Rx's Medication Instructions Recorded Atorvastatin [Lipitor] 80 mg PO HS 60 Days #60 tab 12/27/21 Albuterol Inhaler [Ventolin Hfa 2 puff INHALATION Q6H PRN 30 Days 06/08/23 Inhaler] #1 each Losartan [Cozaar] 25 mg PO DAILY 30 Days #30 tab 06/08/23 hydroCHLOROthiazide [Hydrodiuril] 12.5 mg PO DAILY 30 Days #30 cap 06/08/23 Albuterol Inhaler [Ventolin Hfa 1 - 2 puff INHALATION Q6HR PRN #1 11/29/23 Inhaler] each predniSONE 60 mg PO DAILY #30 tab 11/29/23 Allergies Allergy/AdvReac Type Severity Reaction Status Date / Time No Known Allergies Allergy Verified 06/07/23 07:53 Review of Systems ROS Statement: Those systems with pertinent positive or pertinent negative responses have been documented in the HPI. ROS Other: All systems not noted in ROS Statement are negative. Constitutional: Denies: fever, chills, weakness ENT: Denies: ear pain Respiratory: Reports: cough. Denies: dyspnea Cardiovascular: Denies: chest pain, palpitations, edema Gastrointestinal: Denies: abdominal pain, vomiting, diarrhea Genitourinary: Denies: dysuria, hematuria Musculoskeletal: Denies: back pain Skin: Denies: rash Neurological: Reports: headache. Denies: weakness, numbness Past Medical History Past Medical History: Hypertension, Myocardial Infarction ([place]) Additional Past Medical History / Comment(s): Lung CA right upper lung Last Myocardial Infarction Date:: 10/2021 History of Any Multi-Drug Resistant Organisms: None Reported Past Surgical History: Heart Catheterization With Stent, Hernia Repair Additional Past Surgical History / Comment(s): carotid left, right upper lung lobectomy Past Anesthesia/Blood Transfusion Reactions: No Reported Reaction Date of Last Stent Placement:: 10/2021 Past Psychological History: PTSD Smoking Status: Former smoker Past Alcohol Use History: Daily Past Drug Use History: None Reported - Past Family History Father Family Medical History: No Reported History Additional Family Medical History / Comment(s): Father was healthy. Mother Family Medical History: No Reported History Additional Family Medical History / Comment(s): Mother was healthy. Brother(s) Family Medical History: Cancer General Exam Limitations: no limitations General appearance: alert, in no apparent distress Head exam: Present: atraumatic, normocephalic Eye exam: Present: normal appearance. Absent: scleral icterus, conjunctival injection ENT exam: Present: normal oropharynx Neck exam: Present: normal inspection, full ROM. Absent: meningismus Respiratory exam: Present: normal lung sounds bilaterally, wheezes. Absent: respiratory distress, rales, rhonchi, stridor, accessory muscle use Cardiovascular Exam: Present: regular rate, normal rhythm, normal heart sounds. Absent: systolic murmur, diastolic murmur, rubs, gallop GI/Abdominal exam: Present: soft. Absent: distended, tenderness, guarding, rebound Extremities exam: Present: normal inspection, normal capillary refill. Absent: pedal edema, calf tenderness Back exam: Present: normal inspection. Absent: CVA tenderness (R), CVA tenderness (L) Neurological exam: Present: alert. Absent: motor sensory deficit Skin exam: Present: warm, dry, intact, normal color. Absent: rash Course Vital Signs 11/29/23 11/29/23 11/29/23 04:07 04:20 05:16 Temperature 98 F Pulse Rate 75 70 Respiratory 18 20 Rate Blood Pressure 134/81 O2 Sat by Pulse 95 Oximetry 11/29/23 11/29/23 11/29/23 05:26 06:00 06:22 Temperature Pulse Rate 74 71 67 Respiratory 20 Rate Blood Pressure 107/53 O2 Sat by Pulse 93 L Oximetry 11/29/23 11/29/23 06:32 07:12 Temperature 98.8 F Pulse Rate 70 72 Respiratory 19 Rate Blood Pressure 118/76 O2 Sat by Pulse 96 Oximetry Medical Decision Making - Medical Decision Making The patient had chest x-ray that I interpreted as negative for acute infiltrate, pneumothorax, congestive heart failure Was pt. sent in by a medical professional or institution (ALEJANDRO Calderon, PROCESS MANUFACTURING ENGINEER, urgent care, hospital, or senior living...) When possible be specific @ -[No] Did you speak to anyone other than the patient for history (EMS, parent, family, police, friend...)? What history was obtained from this source @ -[No] Did you review nursing and triage notes (agree or disagree)? Why? @ -[I reviewed and agree with nursing and triage notes] Were old charts reviewed (outside hosp., previous admission, EMS record, old EKG, old radiological studies, urgent care reports/EKG's, senior living records)? Report findings @ -[No old charts were reviewed] Differential Diagnosis (chest pain, altered mental status, abdominal pain women, abdominal pain men, vaginal bleeding, weakness, fever, dyspnea, syncope, headache, dizziness, GI bleed, back pain, seizure, CVA, palpatations, mental health, musculoskeletal)? @ -[Differential Dyspnea: Coronary syndrome, arrhythmia, tamponade, asthma, COPD, pulmonary embolism, pneumonia, pneumothorax, pulmonary effusion, anaphylaxis, diabetic ketoacidosis, flailed chest, pulmonary contusion, diaphragmatic rupture, anemia, neuromuscular, this is not meant to be an all-inclusive list. EKG interpreted by me (3pts min.). @ -[As above] X-rays interpreted by me (1pt min.). @ -[I interpreted as above CT interpreted by me (1pt min.). @ -[None done] U/S interpreted by me (1pt. min.). @ -[None done] What testing was considered but not performed or refused? (CT, X-rays, U/S, labs)? Why? @ -[None] What meds were considered but not given or refused? Why? @ -[None] Did you discuss the management of the patient with other professionals (professionals i.e. ALEJANDRO Calderon, PROCESS MANUFACTURING ENGINEER, lab, RT, psych nurse, protective services social worker, mobile sales expert, teacher, founder and chief technical officer, telephonic nurse case manager)? Give summary @ -[No] Was smoking cessation discussed for >3mins.? @ -[No] Was critical care preformed (if so, how long)? @ -[No] Were there social determinants of health that impacted care today? How? (Homelessness, low income, unemployed, alcoholism, drug addiction, transportation, low edu. Level, literacy, decrease access to med. care, skilled nursing, rehab)? @ -[No] Was there de-escalation of care discussed even if they declined (Discuss DNR or withdrawal of care, Hospice)? DNR status @ -[No] What co-morbidities impacted this encounter? (DM, HTN, Smoking, COPD, CAD, Cancer, CVA, ARF, Chemo, Hep., AIDS, mental health diagnosis, sleep apnea, morbid obesity)? @ -[None] Was patient admitted / discharged? Hospital course, mention meds given and route, prescriptions, significant lab abnormalities, going to OR and other pertinent info. @ -[hospital course] Undiagnosed new problem with uncertain prognosis? @ -[No] Drug Therapy requiring intensive monitoring for toxicity (Heparin, Nitro, Insulin, Cardizem)? @ -[No] Were any procedures done? @ -[No] Diagnosis/symptom? @ -[Acute bronchitis Acute, or Chronic, or Acute on Chronic? @ -[Acute Uncomplicated (without systemic symptoms) or Complicated (systemic symptoms)? @ -[Uncomplicated Side effects of treatment? @ -[No] Exacerbation, Progression, or Severe Exacerbation? @ -[No] Poses a threat to life or bodily function? How? (Chest pain, [place], [place], pneumonia, PE, COPD, DKA, ARF, appy, cholecystitis, CVA, Diverticulitis, Homicidal, Suicidal, threat to staff... and all critical care pts) @ -[No] - Lab Data Lab Results 11/29/23 Range/Units 04:45 Influenza Type A (PCR) Not Detected (Not Detectd) Influenza Type B (PCR) Not Detected (Not Detectd) RSV (PCR) Not Detected (Not Detectd) SARS-CoV-2 (PCR) Not Detected (Not Detectd) Disposition Clinical Impression: Bronchitis Disposition: HOME SELF-CARE Condition: Good Instructions (If sedation given, give patient instructions): Acute Bronchitis (ED), How to Use a Nebulizer (DC) Prescriptions: predniSONE 60 mg PO DAILY #30 tab Albuterol Inhaler [Ventolin Hfa Inhaler] 1 - 2 puff INHALATION Q6HR PRN #1 each PRN Reason: Wheezing Is patient prescribed a controlled substance at d/c from ED?: No Referrals: [facility],Clinic [Primary Care Provider] - 1-2 days
[2023-11-29 07:13] VITALS: BP 118/76; PULSE 72; RESP 19; TEMP 98.8
== END 2023-11-29 07:04 | disposition home or self-care (01) ==
LOC: EC 03:57
DX: J40 Bronchitis, not specified as acute or chronic (principal); Z87.891 Personal history of nicotine dependence
CPT/HCPCS: 94640 ×2; 87636; 71046; 99284; J7512